=== PATIENT | male | born 1945 | race Caucasian/White ===

== ENCOUNTER 2016-05-11 11:18 | Inpatient (IN) | payer MEDICARE, OTHER ==
[~2016-05-11] VITALS: Ht 190.5 cm; Wt 64.3 kg
[2016-05-11] VITALS (11 sets, daily range): BP systolic 126–152; BP diastolic 77–101; PULSE 79–106; RESP 14–22; O2SAT 91–99
[~2016-05-11 11:18] MED LIST: ALBU1.25 INHALATION; ALBU6.7H INH; AMLO10TA3 PO; ASPI-973 PO; ATEN50TA PO; CYAN10008 PO; ERGO500050 PO; FUR20 PO; HYDR50CA PO; IPRA3AMP IH; LISI30TA5 PO; MORP-33 PO; OXYC-474 PO; POTA10CA42 PO; PRE20 PO; ZIT250 PO
--- NOTE | 2016-05-11 11:51 | ED.REPORT ---
HPI-Dyspnea / Wheezing Date of Service May 11, 2016 ED Provider: Demetrio Sales MD 70 year old male with a history of CHF, COPD, and asthma [facility] his due to 4-5 days of acute on chronic shortness of breath. Symptoms were treated with albuterol treatments at home with no relief. Associated symptoms include cough, and chest pain that he speculates is secondary to coughing. Patient denies history of CO, diabetes, and cancer. states that the patient has not taken his morning medications, with the exception of prednisone. Nursing Notes Stated Complaint: SOB Chief Complaint: Respiratory Distress Nursing Notes Reviewed: Yes Allergies: Coded Allergies: No Known Allergies (Verified Allergy, Unknown, 08/04/15) Scheduled Amlodipine (Amlodipine) 10 Mg Tablet 10 MG PO DAILY Aspirin (Aspirin) 81 Mg Tablet 81 MG PO DAILY Atenolol (Atenolol) 50 Mg Tablet 50 MG PO DAILY Azithromycin (Zithromax) 250 Mg Tablet 250 MG PO DAILY Cyanocobalamin (Vitamin B-12) (Vitamin B-12) 1,000 Mcg Tablet 1,000 MCG PO ONCE Ergocalciferol (Vitamin D2) (Drisdol) 50,000 Unit Capsule 50,000 UNIT PO Q7D Furosemide (Furosemide) 20 Mg Tab 20 MG PO DAILY Ipratropium/Albuterol Sulfate (Iprat-Albut 0.5-3(2.5) mg/3 mL Inhalant Soln) 3 Ml Ampul.neb 3 ML IH Q6 Lisinopril (Lisinopril) 30 Mg Tablet 30 MG PO DAILY Potassium Chloride (Potassium Chloride) 10 Meq Capsule.er 10 MEQ PO DAILY TAKE WITH FOOD Prednisone (PredniSONE) 20 Mg Tablet 40 MG PO DAILY Scheduled PRN Albuterol Neb Soln (Albuterol Neb Soln) 1.25 Mg/3 Ml Vial.neb 1.25 MG INHALATION Q4H PRN PRN For Shortness of Breath Albuterol Sulfate (Proventil HFA Inhaler) 6.7 Gm Hfa.aer.ad 2 PUFF INH Q4 PRN PRN For Shortness of Breath Hydroxyzine Pamoate (Vistaril) 50 Mg Capsule 50 MG PO TID PRN PRN For Pain Ipratropium/Albuterol Sulfate (Iprat-Albut 0.5-3(2.5) mg/3 mL Inhalant Soln) 3 Ml Ampul.neb 3 ML IH QID PRN PRN For Shortness of Breath Morphine Sulfate ER (Morphine Sulfate ER) 30 Mg Tablet 30 MG PO TID PRN PRN For Pain Oxycodone (Roxicodone) 5 Mg Tablet 10 MG PO QID PRN PRN For Pain General Time Seen by MD: 11:50 Chief Complaint Shortness of breath Hx Obtained From: Patient Arrived By: Ambulance Sudden in Onset?: No Onset Occurred: 5 days ago Symptom Duration: Since onset Location: : Substernal Quality: Painful Severity: Current: Mild Severity: Maximum: Mild Associated with: Reports: Chest pain, Cough Pertinent Negative: Pt denies other symptoms Context Related History: Reports: COPD, Congestive heart failure Asthma History: Asthma diagnosed, Home albuterol neb Recent Healthcare: Recent doctor visit Similar Sx Previous: Yes Past Medical History Past Medical History Notes: Primary care at [facility] Past Medical History Chronic Back Pain w/DJD Anxiety Denies CO Reports: Asthma, COPD, Congestive heart failure, Hypertension, Denies: Cancer, Diabetes mellitus Past Surgical History Reports: Tonsillectomy Smoking History Current Every Day Smoker Social History Alcohol Use: Denies alcohol use Drug Use: Denies drug use Other Social History: , Local resident Ambulatory Status Independent Review of Systems Constitutional: Denies: Chills, Fever Respiratory: Reports: Non-productive cough, Shortness of breath, Denies: Hemoptysis Cardiovascular: Reports: Chest pain Complete sys rev & neg: except as marked. GI: Denies: Abdominal pain, Diarrhea, Nausea, Vomiting Physical Exam Initial Vital Signs Vital Signs (First) Date Time Temp Pulse Resp B/P Pulse Ox O2 Delivery O2 Flow Rate FiO2 05/11/16 11:28 36.8 99 18 152/91 98 Room Air Initial VS: Reviewed Head / Eyes: Atraumatic, Normocephalic Abdomen / GI: Soft, Non-tender, No guarding, No rebound, No distention Extremities: Vascular intact, Neuro intact, No swelling, No tenderness Skin: Warm, Dry, No cyanosis Neurologic: Alert, Oriented, Nonfocal General/Constitutional: Awake, Alert, Well developed, Well nourished Neck: Atraumatic, Supple, No meningismus, Full range of motion, No swelling, Non-tender, No masses Respiratory / Chest: No rales, No retractions Wheezing / Retractions: Positive: Wheeze insp/exp diffuse Cardiovascular: Heart rate NL, Regular rhythm, Heart sounds NL, Peripheral circulation NL Interpretation & Diagnostics Lab Results Interpretation Result Diagram: 05/11/16 1155 05/11/16 1155 Test 05/11/16 11:55 05/11/16 12:20 White Blood Count 23.4th/mm3 (3.8-10.1) Red Blood Count 4.86mil/mm3 (4.40-5.80) Hemoglobin 13.4g/dL (13.8-17.2) Hematocrit 42.7% (41.0-50.0) Mean Corpuscular Volume 87.9fL (81-100) Mean Corpuscular Hemoglobin 27.6pg (27.0-35.0) Mean Corpuscular Hemoglobin Concent 31.4% (32.0-37.0) Red Cell Distribution Width 17.8% (12.3-15.4) Platelet Count 409bil/L (150-400) Neutrophils (%) (Auto) 88.8% (40-74) Lymphocytes (%) (Auto) 5.6% (14-46) Monocytes (%) (Auto) 5.0% (4-12) Eosinophils (%) (Auto) 0.1% (0-5) Basophils (%) (Auto) 0.1% (0-3) Sodium Level 138mEq/L (134-144) Potassium Level 4.5mEq/L (3.5-5.2) Chloride Level 98mEq/L (97-108) Carbon Dioxide Level 23mmol/L (18-29) Blood Urea Nitrogen 16mg/dL (8-27) Creatinine 0.70mg/dL (0.76-1.27) Estimat Glomerular Filtration Rate 118mL/min (>59) Glucose Level 112mg/dL (60-99) Calcium Level 8.9mg/dL (8.5-10.1) Total Bilirubin 0.4mg/dL (0.0-1.2) Aspartate Amino Transf (AST/SGOT) 12U/L (0-50) Alanine Aminotransferase (ALT/SGPT) 10U/L (0-44) Alkaline Phosphatase 77U/L (25-160) Troponin T 0.010ug/L (0.0-0.011) Pro-B-Type Natriuretic Peptide 8823pg/mL (0-376) Total Protein 6.7g/dL (6.4-8.4) Albumin 3.9g/dL (3.4-5.0) Urine Color Straw (YELLOW) Urine Appearance Hazy (CLEAR,HAZY) Urine pH 7.0 (5.0-8.0) Urine Specific [place] 1.015 (1.003-1.035) Urine Protein Negativemg/dL (NEG,TRACE) Urine Glucose (UA) Negativemg/dL (NEGATIVE) Urine Ketones Negativemg/dL (NEGATIVE) Urine Occult Blood Negative (NEGATIVE) Urine Nitrite Negative (NEGATIVE) Urine Bilirubin Negative (NEGATIVE) Urine Urobilinogen Normalmg/dL (NORMAL) Urine Leukocyte Esterase Negative (NEGATIVE) Urine RBC 0-2/hpf (0-2) Urine WBC 0-5/hpf (0-5) Urine Epithelial Cells Occasional/hpf (NONE-MOD) Urine Crystals None seen (NONE SEEN) Urine Bacteria None/hpf (NONE-FEW) Urine Hyaline Casts None/lpf (NONE) Urine Granular Casts None seen (NONE SEEN) Urine Waxy Casts None seen (NONE SEEN) Urine Red Blood Cell Casts None seen (NONE SEEN) Urine White Blood Cell Casts None seen (NONE SEEN) Urine Mucus Present (None Seen) Urine Trichomonas None seen (NONE SEEN) Urine Yeast None (NONE SEEN) Urinalysis Comment None Urine Culture Reflexed Not indicated ECG Interpretation ECG Interpretation: Sinus rhythm, rate 91 Multiform ventricular premature complexes LVH with IVCD, LAD and secondary repolarization abnormality Time: 12:06 Interpreted by: ED physician X-Ray Chest Interpretation Chest Xray Interpretation: IMPRESSION: No acute cardiopulmonary disease. Dictated by: Julian Clement M.D. on 05/11/2016 at 13:10 Approved by: Julian Clement M.D. on 05/11/2016 at 13:12 View: Portable, 1 view Interpretation / Wet Read by: Interpret - Radiologist Re-Eval/Medical Decision Med Decision/Clinical Course After nebulized treatments and Solu-Medrol IV patient still feels quite breathless. Will admit for COPD exacerbation. Source of Hx: Old records Re-Evaluation/Progress : Time of Eval: 14:12 Re-Evaluation/Progress Note: HR 100, O2 sat 92. Patient reports no change in symptoms. Discussed x-ray and lab results and need for admission. Patient is amenable to the plan. All other questions addressed. Consultation : Referral / Consult Name: Dayne Miramontes MD Consulted With: Hospitalist Call Returned at: 14:26 Massage Therapist: Agrees with eval, Agrees with plan, Accepts admit Counseled Regarding: Diagnosis, Lab results, Need for admission Discharge & Departure Impression: Primary Impression: CHF exacerbation Disposition: ADMITTED TO HOSPITAL Discharge Condition All VS Reviewed: Yes Condition: Stable [facility] Ashleigh Attestation Portions of this note were transcribed by Katia Babb. I, Dr. Sales, personally performed the history, physical exam and medical decision-making; I reviewed and confirmed the accuracy of the information in the transcribed note. Signed by: Ashleigh Meier, 05/11/2016 and 14:37 copies to: [facility] Demetrio Sales MD May 11, 2016 11:51 KATIA BABB May 11, 2016 11:53
[2016-05-11 12:04] LABS: BASOPHILS % (AUTO) 0.1 % (0-3); EOSINOPHILS % (AUTO) 0.1 % (0-5); Mean Corpuscular Hemoglobin 27.6 pg (27.0-35.0); Mean Corpuscular Volume 87.9 fL (81-100); NEUTROPHILS % (AUTO) 88.8 % (40-74); Platelet Count 409 bil/L (150-400)
[2016-05-11] MEDS ORDERED: Albuterol 2.5 mg/3 mL Inhalation Solution NEB ONE (12:20)
[2016-05-11] MEDS ORDERED: MethylprednisoLONE Sodium Succinate 62.5 mg/mL 2 mL Inj IVPUSH ONE (12:20)
[2016-05-11 12:25] LABS: TROPONIN T 0.01 ug/L (0.0-0.011)
[2016-05-11] MEDS ORDERED: Morphine ER 30 mg (MS Contin) Tablet PO ONE (13:05)
--- NOTE | 2016-05-11 13:13 | DRSVH ---
PROCEDURE: X-RAY CHEST ONE VIEW, PORTABLE ([id number]) INDICATIONS: SOB TECHNIQUE: One view of the chest was acquired. COMPARISON: [facility], CR, XR CHEST 2V AP/PA AND LAT, 02/23/2016, 7:41 AM. [facility], CR, XR CHEST 2V AP/PA AND LAT, 04/18/2016, 10:[address] [facility], CR, XR C HEST 1VW (PORTABLE), 11/22/2015, 11:26. FINDINGS: Surgical changes and devices: None. Lungs and pleura: No pleural effusions or pneumothorax. Lungs are clear. Mediastinum: Mediastinal contours appear normal. Heart size is normal. Bones and chest wall: No suspicious bony lesions. Overlying soft tissues appear unremarkable. IMPRESSION: No acute cardiopulmonary disease. Dictated by: Julian Clement M.D. on 05/11/2016 at 13:10 Approved by: Julian Clement M.D. on 05/11/2016 at 13:12
[2016-05-11 14:00] LABS: APPEARANCE,URINE HAZY (CLEAR,HAZY); COLOR,URINE STRAW (YELLOW); OCCULT BLOOD,URINE NEGATIVE (NEGATIVE); UROBILINOGEN,URINE NORMAL (NORMAL)
[2016-05-11] MEDS ORDERED: Alum-Mag Hydrox-Simeth 30 mL Suspension PO PRN (14:30)
[2016-05-11] MEDS ORDERED: Ondansetron 2 mg/mL 2 mL Inj IVPUSH PRN (14:30)
[2016-05-11] MEDS: Heparin 5,000 Unit/mL Inj SUBQ SCH ×2 (14:30→21:24)
[2016-05-11] MEDS ORDERED: Polyethylene Glycol (PEG) 17 Gm Powder PO PRN (14:30)
--- NOTE | 2016-05-11 14:45 | PCM.HPMED ---
Subjective Date of Service May 11, 2016 Primary Provider: Admitting Physician: Primary Care Physician: [facility] Attending Physician: Chief Complaint: Shortness of breath History of Present Illness: This is a 70 years old man with past medical history of COPD secondary to tobacco abuse, hypertension, chronic pain, chronic narcotic user who was sent to the hospital from the [place] [facility] for shortness of breath. Patient stated he has been short of breath for 3-4 days or so. Initially the shortness of breath would improve for a while with nebulizer treatment but as of today he continued to be severely short of breath despite multiple nebulizer treatment. And also chest pain with coughing, generalized weakness. She denied abdominal pain, fever, chills, nausea, vomiting. He presented today to [facility] clinic and was rerouted to the hospital for full evaluation. in ER chest x-ray is negative but patient was hypoxic and did not respond to multiple nebulizer treatments and IV steroids. His leukocytosis is 23,000 but patient has been on and off prednisone chronically. He is a current smoker despite his COPD. Review of Systems: Review of systems is pertinent for shortness of breath as described in history of present illness otherwise a comprehensive review by 12 points is negative Allergies Coded Allergies: No Known Allergies (Verified Allergy, Unknown, 08/04/15) Home Medications Scheduled Amlodipine (Amlodipine) 10 Mg Tablet 10 MG PO DAILY Aspirin (Aspirin) 81 Mg Tablet 81 MG PO DAILY Atenolol (Atenolol) 50 Mg Tablet 50 MG PO DAILY Azithromycin (Zithromax) 250 Mg Tablet 250 MG PO DAILY Cyanocobalamin (Vitamin B-12) (Vitamin B-12) 1,000 Mcg Tablet 1,000 MCG PO ONCE Ergocalciferol (Vitamin D2) (Drisdol) 50,000 Unit Capsule 50,000 UNIT PO Q7D Furosemide (Furosemide) 20 Mg Tab 20 MG PO DAILY Ipratropium/Albuterol Sulfate (Iprat-Albut 0.5-3(2.5) mg/3 mL Inhalant Soln) 3 Ml Ampul.neb 3 ML IH Q6 Lisinopril (Lisinopril) 30 Mg Tablet 30 MG PO DAILY Potassium Chloride (Potassium Chloride) 10 Meq Capsule.er 10 MEQ PO DAILY TAKE WITH FOOD Prednisone (PredniSONE) 20 Mg Tablet 40 MG PO DAILY Scheduled PRN Albuterol Neb Soln (Albuterol Neb Soln) 1.25 Mg/3 Ml Vial.neb 1.25 MG INHALATION Q4H PRN PRN For Shortness of Breath Albuterol Sulfate (Proventil HFA Inhaler) 6.7 Gm Hfa.aer.ad 2 PUFF INH Q4 PRN PRN For Shortness of Breath Hydroxyzine Pamoate (Vistaril) 50 Mg Capsule 50 MG PO TID PRN PRN For Pain Ipratropium/Albuterol Sulfate (Iprat-Albut 0.5-3(2.5) mg/3 mL Inhalant Soln) 3 Ml Ampul.neb 3 ML IH QID PRN PRN For Shortness of Breath Morphine Sulfate ER (Morphine Sulfate ER) 30 Mg Tablet 30 MG PO TID PRN PRN For Pain Oxycodone (Roxicodone) 5 Mg Tablet 10 MG PO QID PRN PRN For Pain PMH Chronic Back Pain w/DJD, Anxiety Reports: Asthma, COPD, Congestive heart failure, Hypertension, Surgical History Tonsillectomy Family History Family history reviewed and is noncontributory to the present illness Social History Hx Alcohol Use: No Hx Substance Use: No Smoking Status: Current Every Day Smoker Living Arrangement: with Family Exam Vital Signs Vital Sign - Last Date Time Temp Pulse Resp B/P Pulse Ox O2 Delivery O2 Flow Rate FiO2 05/11/16 13:50 106 22 142/94 91 Room Air 05/11/16 11:28 36.8 Exam Gen/Constitutional : Ill appearing elderly male, and stretcher comfortably, no acute distress, on oxygen via nasal cannula, able to speak in full sentences HEENT : Atraumatic, Normocephalic, sclerae is anicteric Neck: Supple , trachea is midline Full range of motion, No swelling, Non-tender , No masses Chest: Normal respiratory effort. No rales, No retractions Lungs : Decreased air entry bilaterally. Bilateral expiratory wheeze. Some fine crackles Cardiovascular: S1S2, , Regular rhythm, Heart sounds NL, Peripheral circulation NL Abdomen / GI: Soft, Non-tender, No guarding, No rebound, No distention Extremities: Vascular intact, Neuro intact, No swelling, No tenderness Skin: Warm, Dry, No cyanosis, no calf tenderness. Neurologic: Alert, Oriented, Nonfocal Lab and Diagnostics Result Diagram: 05/11/16 1155 05/11/16 1155 X-Rays, CTs and MRIs Chest X-ray personally reviewed;; No acute pulmonary finding Assessment & Plan 1. COPD exacerbation 2. h/o COPD/Asthma 3. Leukocytosis Chronic medical problems Asthma, COPD, Congestive heart failure, Hypertension, Admit inpatient. Telemetry monitoring Oxygen supplement 2 L nasal cannula to keep oxygen saturation around 92-95. Bronchodilators : DuoNeb nebulizer every 4 hours. Start Advair 50/250 g inhaler twice a day IV steroids : Methylprednisolone 40 mg IV every 8 hours. Patient has a leukocytosis of 23,000. No clinical evidence of infection and no need for antibiotics at this time. He has been on steroid over the last 3 days. Elevated BNP noted. Chest x-ray is not consistent with CHF exacerbation of pulmonary edema. We will obtain a 2-D echocardiogram and a repeat BNP in a.m. Medications reviewed and reconciled. ( see orders) . Morphine sulfate for pain Subcutaneous heparin for DVT prophylaxis. Smoking cessation counseling , nicotine patch offered for smoking urge Short hospital stay between 2-3 is anticipated and recovery is expected Pain Evaluation: Adequate Pain Control VTE Prophylaxis: Sub-Q Heparin (Unfractionated) Resuscitation Status: CPR: Attempt Resuscitation Time spent 75 minutes Dayne Miramontes MD May 11, 2016 14:45
[2016-05-11] MEDS ORDERED: Albuterol-Ipratropium 3 mL Inhalation Solution NEB ONE (15:05)
[2016-05-11] MEDS: Fluticasone-Salmererol 250-50 Inhaler INHALATION SCH (16:00)
[2016-05-11] MEDS ORDERED: CHOL100043 PO (16:21)
[2016-05-11] MEDS ORDERED: FURO40TA4 PO (16:23)
[2016-05-11] MEDS: MethylprednisoLONE Sodium Succinate 40 mg/mL Inj IVPUSH SCH (16:30)
[2016-05-11] MEDS ORDERED: PRE10 PO (16:43)
[2016-05-11] MEDS ORDERED: IPRA3AMP IH (16:43)
[2016-05-11] MEDS ORDERED: LORA0.5T PO (16:44)
[2016-05-11] MEDS ORDERED: Morphine ER 30 mg (MS Contin) Tablet PO SCH (20:30)
[2016-05-11] MEDS: Albuterol-Ipratropium 3 mL Inhalation Solution NEB SCH ×2 (20:41→20:42)
[2016-05-11] MEDS: LORazepam 0.5 mg Tablet PO PRN (21:24)
[2016-05-12] VITALS (13 sets, daily range): BP systolic 99–141; BP diastolic 64–92; PULSE 63–87; RESP 18–22; O2SAT 92–97
[2016-05-12] MEDS: Albuterol-Ipratropium 3 mL Inhalation Solution NEB SCH ×7 (00:30→23:46)
[2016-05-12] MEDS: MethylprednisoLONE Sodium Succinate 40 mg/mL Inj IVPUSH SCH ×3 (01:20→17:20)
[2016-05-12] MEDS: Morphine ER 30 mg (MS Contin) Tablet PO SCH ×3 (06:10→21:30)
[2016-05-12 06:39] LABS: BASOPHILS % (AUTO) 0.1 % (0-3); EOSINOPHILS % (AUTO) 0 % (0-5); MONOCYTES % (AUTO) 4.6 % (4-12); Mean Corpuscular Hemoglobin 27.7 pg (27.0-35.0); Mean Corpuscular Volume 87.1 fL (81-100); Platelet Count 441 bil/L (150-400)
[2016-05-12] MEDS: Fluticasone-Salmererol 250-50 Inhaler INHALATION SCH ×2 (08:56→21:23)
[2016-05-12] MEDS: Heparin 5,000 Unit/mL Inj SUBQ SCH ×2 (08:56→21:24)
--- NOTE | 2016-05-12 10:00 | DRSVH ---
Study location field not populated with appropriate location Echocardiogram Report Name: LUCAS SMART GStudy Date: 05/12/2016 Height: 75 in Hospital Weight: 146 lb Gender: Male BSA: 1.9 m2 : 1945 Age: 70 yrs BP: 124/77 mmHg Reason For Study: SOB Ordering Physician: HOSPITALIST [facility] Performed By: Lauren Erickson Interpretation Summary The left ventricle is severely dilated. Left ventricular systolic function is severely reduced. The ejection fraction is estimated to be 20-25%. The anteroseptal wall appears to be more preserved. The E/E' ratio is severely increased, suggesting possible increased filling pressures. The right ventricle is mildly dilated. Right ventricular systolic function is borderline reduced. The right ventricular systolic pressure is estimated at 67 mmHg assuming a right atrial pressure of 15 mm Hg. The left atrium is severely dilated. The right atrium is moderately dilated. There is moderate to severe mitral regurgitation. There is mild to moderate tricuspid regurgitation. There is no other significant valvular heart disease. The aortic root is normal size. Procedure: A two-dimensional transthoracic echocardiogram with color flow and Doppler was performed. There is no prior echocardiogram noted for this patient. The study quality was technically adequate. The patient was in normal sinus rhythm during the exam. Left Ventricle: The left ventricle is severely dilated. Left ventricular wall thickness is normal. Left ventricular systolic function is severely reduced. The ejection fraction is estimated to be 20-25%. There is severe global hypokinesis of the left ventricle. The anteroseptal wall appears to be more preserved. The E/E' ratio is severely increased, suggesting possible increased filling pressures. Right Ventricle: The right ventricle is mildly dilated. Right ventricular systolic function is borderline reduced. Atria: The left atrium is severely dilated. The right atrium is moderately dilated. The interatrial septum is intact with no evidence for an atrial septal defect. Mitral Valve: The mitral valve leaflets appear borderline thickened, but open well. There is mild mitral annular calcification. There is moderate to severe mitral regurgitation. Aortic Valve: The aortic valve is grossly normal. The aortic valve opens well. The aortic valve is slightly calcified. No aortic regurgitation is present. Tricuspid Valve: The tricuspid valve leaflets are thin and pliable. There is mild to moderate tricuspid regurgitation. The right ventricular systolic pressure is estimated at 67 mmHg assuming a right atrial pressure of 15 mm Hg. Pulmonic Valve: The pulmonic valve is not well seen, but is grossly normal. There is no pulmonic valvular regurgitation. There is no other significant valvular heart disease. Great Vessels: The aortic root is normal size. The ascending aorta is normal in size. The aortic arch is normal in size. The pulmonary artery is not well visualized, but is probably normal size. The IVC is dilated (diameter is greater than 2.1 cm) and it collapses less than 50% with a sniff. This suggests a high right atrial pressure of 15 mm Hg. Pericardium/ Pleura There is no pericardial effusion. There is no pleural effusion. MMode/2D Measurements & Calculations LVIDd: 7.4 cm LA dimension: 5.1 cm RA long axis: 5.7 cm Ao root diam LVIDs: 6.5 cm FS: 11.4 % LA A2 area: 36.7 cm RA area: 22.7 cm asc Aorta Diam IVSd: 0.84 cm LA A4 area: 37.3 cm RA vol: 75.9 ml LVPWd: 0.67 cmLA length (vol) RA : 39.5 ml/m Ao Arch Diam (Prox RVDd major: 9.0 cm Trans): 2.6 cm LA vol: 172.7 ml LA vol index IVC diam: 2.4 cm EDV(MOD-sp2) LV chávez. diameter/BSA LV sys. diameter/BSA RVD1 (basal) : 288.9 ml (cm/m^2): 3.8 (cm/m^2): 3.4 : 4.3 cm RVD2 (mid) : 4.5 cm Doppler Measurements & Calculations Ao V2 max MV E max gilbert MV E/A: 1.8 TR max gilbert : 124.1 cm/sec : 123.2 cm/sec Med Peak E' Gilbert : 359.3 cm/sec Ao max PG MV A max gilbert TR max PG : 6.2 mmHg : 68.0 cm/sec E/E' med: 33.5 : 51.6 mmHg Ao mean PG MV P1/2t: 27.3 msec Lat Peak E' Gilbert PA V2 max : 3.5 mmHg : 73.2 cm/sec E/E' lat: 16.7 PA mean PG E/e' average: 25.1 MV A dur: 0.12 sec PA Accel Time : 0.10 sec MV dec time MV P1/2t max gilbert Ao V2 mean PA V2 mean : 0.10 sec : 89.8 cm/sec : 53.6 cm/sec MVA(P1/2t): 8.1 cm2 Ao V2 VTI: 24.2 cm Reading Physician:QUINTIN
[2016-05-12] MEDS: Ketorolac 15 mg/mL Inj IVPUSH PRN (12:11)
[2016-05-12] MEDS: LORazepam 0.5 mg Tablet PO PRN (12:23)
--- NOTE | 2016-05-12 14:14 | PCM.PNMED ---
Subjective Date of Service May 12, 2016 Subjective Patient is complaining of pain and even though he is on chronic oral pain medications he states that the patient is uncomfortable and he would like some IV morphine Hermilo 8 his pain. Otherwise he feels better and is breathing better. He has no new complaints. He has no fever, no chills, no sweats and no productive cough. Exam Vital Signs Vital Sign - Last Date Time Temp Pulse Resp B/P Pulse Ox O2 Delivery O2 Flow Rate FiO2 05/12/16 12:30 77 20 94 Room Air 05/12/16 09:24 36.5 123/83 05/11/16 20:42 2 Intake and Output 05/11/16 05/11/16 05/12/16 Cumulative From/Thru 15:00 23:00 07:00 05/11/16 11:28 - 05/12/16 06:16 Intake Total 236 ml 300 ml 536 ml Output Total 0 ml 0 ml Balance 236 ml 300 ml 536 ml Intake Oral 236 ml 300 ml 536 ml Output Urine Total 0 ml 0 ml # Voids 3 3 # Bowel Movements 0 1 1 Exam General: Patient is laying supine in bed with head elevated approximately 30-45 . He is in no distress. He is comfortable. HEENT: Head is atraumatic and normocephalic. Eyes: Pupils are equally round and reactive to light and accommodation. Extraocular muscles are intact. Sclera are white, anicteric. Subconjunctival mucosa is pink. Ears and nose are unremarkable. Oropharynx: There is no mucosal lesions, there is no thrush, there is no pharyngitis. Neck: Is supple, there are no nodes, or masses or tenderness. Chest: Is significant for decreased breath sounds bilaterally and diffuse expiratory wheezing especially with coughing. Heart: Rate, rhythm is regular. There is no murmur, rub or gallop. Abdomen: Good bowel sounds are present. Abdomen is soft, nontender, no organomegaly or masses were appreciated. Extremities: Are symmetrical and well perfused. There is no edema, there is no cellulitis, no rash. Neurologic: There are no focal neurological deficits. Cranial nerves II through XII are intact. There are no sensory or motor deficits. Psychiatric: Patients mood is calm and shows no sign of agitation. Genital: Deferred Rectal: Deferred Lab and Diagnostics Result Diagram: 05/12/16 0608 05/12/16 0608 X-Rays, CTs and MRIs PROCEDURE: X-RAY CHEST ONE VIEW, PORTABLE ([id number]) INDICATIONS: SOB TECHNIQUE: One view of the chest was acquired. COMPARISON: [facility], CR, XR CHEST 2V AP/PA AND LAT, 02/23/2016 , 7:41 AM. [facility], CR, XR CHEST 2V AP/PA AND LAT, 04/18/2016, 10:41 AM. [facility], CR, XR CHEST 1VW (PORTABLE), 11/22/2015, 11: 26. FINDINGS: Surgical changes and devices: None. Lungs and pleura: No pleural effusions or pneumothorax. Lungs are clear. Mediastinum: Mediastinal contours appear normal. Heart size is normal. Bones and chest wall: No suspicious bony lesions. Overlying soft tissues appear unremarkable. IMPRESSION: No acute cardiopulmonary disease. Dictated by: Julian Clement M.D. on 05/11/2016 at 13:10 Approved by: Julian Clement M.D. on 05/11/2016 at 13:12 Cardiac Echo Impressions Study location field not populated with appropriate location Echocardiogram Report Name: LUCAS SMART GStudy Date: 05/12/2016 Height: 75 in Hospital Weight: 146 lb Gender: Male BSA: 1.9 m2 : 1945 Age: 70 yrs BP: 124/77 mmHg Reason For Study: SOB Ordering Physician: HOSPITALIST [facility] Performed By: Lauren Erickson Interpretation Summary The left ventricle is severely dilated. Left ventricular systolic function is severely reduced. The ejection fraction is estimated to be 20-25%. The anteroseptal wall appears to be more preserved. The E/E' ratio is severely increased, suggesting possible increased filling pressures. The right ventricle is mildly dilated. Right ventricular systolic function is borderline reduced. The right ventricular systolic pressure is estimated at 67 mmHg assuming a right atrial pressure of 15 mm Hg. The left atrium is severely dilated. The right atrium is moderately dilated. There is moderate to severe mitral regurgitation. There is mild to moderate tricuspid regurgitation. There is no other significant valvular heart disease. The aortic root is normal size. Assessment & Plan 70 year old male with a history of CHF, COPD, and asthma presents to the ER via EMS referred [place] the [place] accompanied by his due to 4-5 days of acute on chronic shortness of breath. Symptoms were treated with albuterol treatments at home with no relief. Associated symptoms include cough, and chest pain that he speculates is secondary to coughing. Patient denies history of IA, diabetes, and cancer. states that the patient has not taken his morning medications, with the exception of prednisone patient came to [facility] emergency room and was evaluated there and it was determined that he needed to be admitted to the hospital service. Patient was admitted to the hospital service for further evaluation treatment. # COPD and Asthma exacerbation - Oxygen supplement 2 L nasal cannula to keep oxygen saturation around 92-95. - Bronchodilators : DuoNeb nebulizer every 4 hours. Start Advair 50/250 g inhaler twice a day - IV steroids : Methylprednisolone 40 mg IV every 8 hours. # Acute on chronic systolic congestive heart failure - Echocardiogram shows an ejection fraction of only 20-25% - BNP is on the rise - Patient is coughing up white phlegm - We will change atenolol to metoprolol succinate 25 mg by mouth twice a day to start with - We will increase Lasix to 40 mg IV twice a day - We will check serial troponins - Continue telemetry monitoring # Leukocytosis - Etiology appears to be due to outpatient steroid use. - Off antibiotics white blood cell count appears to be in decline - We will check inflammatory markers including C-reactive protein and sedimentation rate) calcitonin in a.m. - Agree that there is no evidence of infection at this time and agree and holding antibiotics at this time. # Hypertension - Appears to be controlled at this time - Due to systolic congestive heart failure addition of an AARTI inhibitor to beta- blockade should improve blood pressure to optimize cardiac function - We will continue to monitor closely # Chronic pain - We will continue patient's home medications of OxyContin and OxyIR as previously scheduled. - Due to patient's current discomfort will add Toradol low-dose IV when necessary for breakthrough pain Smoking cessation counseling was performed by the admitting physician and I also counseled him on quitting today. Patient admits that the nicotine patch is taking the urge to smoke away. Disposition: Patient likely to be here another 4872 hours for further evaluation treatment. Pain Evaluation: Adequate Pain Control GI Prophylaxis: Proton Pump Inhibitor VTE Prophylaxis: Sub-Q Heparin (Unfractionated) Resuscitation Status: CPR: Attempt Resuscitation Ángel,Christopher E MD May 12, 2016 14:14
[2016-05-12] MEDS ORDERED: Furosemide 10 mg/mL 4 mL Inj IVPUSH SCH (14:20)
--- NOTE | 2016-05-12 16:26 | DRSVH ---
PROCEDURE: X-RAY CHEST, TWO VIEWS ([id number]) INDICATIONS: shortness of breath/possible infiltrate TECHNIQUE: 2 views of the chest were acquired. COMPARISON: Merged With [facility], CR, XR CHEST 1VW (PORTABLE), 05/11/2016, 11:39. FINDINGS: Surgical changes and devices: None. Lungs and pleura: No pleural effusions or pneumothorax. Lungs are clear. Mediastinum: Mediastinal contours are normal. Heart size is mildly enlarged. Bones and chest wall: No suspicious bony abnormalities. Soft tissues appear unremarkable. IMPRESSION: No acute airspace opacities. Dictated by: Selma Gonzalez M.D. on 05/12/2016 at 16:25 Approved by: Selma Gonzalez M.D. on 05/12/2016 at 16:25
[2016-05-12] MEDS: MeTOProlol XL 25 mg ER24 Tablet PO SCH (20:30)
[2016-05-13] VITALS (11 sets, daily range): BP systolic 105–120; BP diastolic 55–84; PULSE 62–79; RESP 16–20; O2SAT 92–97
[2016-05-13] MEDS: MethylprednisoLONE Sodium Succinate 40 mg/mL Inj IVPUSH SCH ×3 (00:52→16:23)
[2016-05-13] MEDS: Ketorolac 15 mg/mL Inj IVPUSH PRN (01:07)
[2016-05-13] MEDS: LORazepam 0.5 mg Tablet PO PRN ×2 (01:12→10:13)
[2016-05-13] MEDS: Albuterol-Ipratropium 3 mL Inhalation Solution NEB SCH ×4 (05:24→19:40)
[2016-05-13] MEDS: Morphine ER 30 mg (MS Contin) Tablet PO SCH ×3 (06:22→21:47)
[2016-05-13 06:32] LABS: BASOPHILS % (AUTO) 0.1 % (0-3); EOSINOPHILS % (AUTO) 0 % (0-5)
[2016-05-13] MEDS: Furosemide 10 mg/mL 4 mL Inj IVPUSH SCH ×2 (06:32→16:22)
[2016-05-13 06:34] LABS: MONOCYTES % (AUTO) 4.1 % (4-12); Mean Corpuscular Volume 87.5 fL (81-100); NEUTROPHILS % (AUTO) 92.6 % (40-74); Platelet Count 391 bil/L (150-400)
[2016-05-13 07:15] LABS: Magnesium 2.3 mg/dL (1.6-2.6); Phosphorus 5.6 mg/dL (2.5-4.9)
[2016-05-13] MEDS: MeTOProlol XL 25 mg ER24 Tablet PO SCH ×2 (07:32→21:46)
[2016-05-13] MEDS: Pantoprazole 40 mg ER24 Tablet PO SCH (07:32)
[2016-05-13] MEDS: Heparin 5,000 Unit/mL Inj SUBQ SCH ×2 (07:33→21:47)
[2016-05-13] MEDS: Fluticasone-Salmererol 250-50 Inhaler INHALATION SCH ×2 (07:35→21:48)
[2016-05-13 07:41] LABS: ERYTHROCYTE SEDIMENTATION RATE 5 mm/hr (0-30)
[2016-05-13 08:23] LABS: TROPONIN T < 0.010 ug/L (0.0-0.011)
--- NOTE | 2016-05-13 16:27 | DRSVH ---
PROCEDURE: US AORTA RETROPERITONEAL LIMITED INDICATIONS: AAA AND BACK PAIN TECHNIQUE: Real time scanning was performed of the aorta and iliac arteries, with image documentatio n. COMPARISON: [facility], CT, CT CHEST ABD PELVIS W CON, 10/28/2014, 16:17. FINDINGS: Aorta: Proximal aortic diameter measures 2.8 cm. Mid-aorta measures 3.0 cm. Distal aortic diameter is 3.6 cm. Iliac arteries: Right common iliac artery measures 0.9 cm. Left common iliac artery measures 0.2 cm . IMPRESSION: No change to slight increase in size of the descending distal abdominal aortic aneurysm. Dictated by: Raf Cabrera RRA Interpreted: Francie Brunson MD on 05/13/2016 at 16:26 Transcribed by: LEIF on 05/13/2016 at 16:27 Approved by: Francie Brunson MD, PhD on 05/13/2016 at 20:30
--- NOTE | 2016-05-13 19:55 | PCM.PNMED ---
Subjective Date of Service May 13, 2016 Subjective Patient is beginning to feel a little bit better. He is able to breathe better. He has no new complaints other than continued back pain and he states that he has nitroglycerin but is afraid to use it because he is worried that his abdominal aortic aneurysmal "will blow". Exam Vital Signs Vital Sign - Last Date Time Temp Pulse Resp B/P Pulse Ox O2 Delivery O2 Flow Rate FiO2 05/13/16 19:40 78 16 94 Room Air 05/13/16 18:41 36.7 111/71 05/11/16 20:42 2 Intake and Output 05/12/16 05/12/16 05/13/16 Cumulative From/Thru 15:00 23:00 07:00 05/11/16 11:28 - 05/13/16 06:27 Intake Total 1259 ml 200 ml 1995 ml Output Total 480 ml 480 ml Balance 1259 ml -280 ml 1515 ml Intake Oral 1259 ml 200 ml 1995 ml Output Urine Total 480 ml 480 ml # Voids 3 6 # Bowel Movements 0 0 1 Exam General: Patient is sitting up on the side of the bed. He is in no distress. He is comfortable. HEENT: Head is atraumatic and normocephalic. Eyes: Pupils are equally round and reactive to light and accommodation. Extraocular muscles are intact. Sclera are white, anicteric. Subconjunctival mucosa is pink. Ears and nose are unremarkable. Oropharynx: There is no mucosal lesions, there is no thrush, there is no pharyngitis. Neck: Is supple, there are no nodes, or masses or tenderness. Chest: Is significant for decreased breath sounds bilaterally. However, the breath sounds are much clearer today.. Heart: Rate, rhythm is regular. There is no murmur, rub or gallop. Abdomen: Good bowel sounds are present. Abdomen is soft, nontender, no organomegaly or masses were appreciated. Extremities: Are symmetrical and well perfused. There is no edema, there is no cellulitis, no rash. Neurologic: There are no focal neurological deficits. Cranial nerves II through XII are intact. There are no sensory or motor deficits. Psychiatric: Patients mood is calm and shows no sign of agitation. Genital: Deferred Rectal: Deferred Lab and Diagnostics Result Diagram: 05/13/1660205/13/16602 Microbiology Name: LUCAS SMART Age/Sex: 70/M Attend Dr: Dayne Miramontes MD Acct: [id number] Unit: [id number] Status: ADM IN [place] [facility] [place]9-1 Re05/11/16 Disch: Specimen: [id number] Collected: 05/13/16 Status: RES Req#: [id number] Received: 05/13/16 Source: SPUTUM EXP Sp Desc : Subm Dr: Jose Antonio Neal MD Ordered: GRAM SPT REFLEX, SPUTUM CULTURE Comments: Collected by Nurse/Unit? Y/N Y Procedure Result Verified Site Microbiology MAGGIE CULT SPUTUM GS Final 05/13/16-1305 SPT GRAM STAIN MODERATE POLYS FEW EPITHELIAL CELLS MODERATE MIXED NORMAL GRAYSON This Spec is of good Quality and acceptable for Cult X-Rays, CTs and MRIs PROCEDURE: X-RAY CHEST ONE VIEW, PORTABLE ([id number]) INDICATIONS: SOB TECHNIQUE: One view of the chest was acquired. COMPARISON: [facility], CR, XR CHEST 2V AP/PA AND LAT, 02/23/2016 , 7:41 AM. [facility], CR, XR CHEST 2V AP/PA AND LAT, 04/18/2016, 10:41 AM. [facility], CR, XR CHEST 1VW (PORTABLE), 11/22/2015, 11: 26. FINDINGS: Surgical changes and devices: None. Lungs and pleura: No pleural effusions or pneumothorax. Lungs are clear. Mediastinum: Mediastinal contours appear normal. Heart size is normal. Bones and chest wall: No suspicious bony lesions. Overlying soft tissues appear unremarkable. IMPRESSION: No acute cardiopulmonary disease. Dictated by: Julian Clement M.D. on 05/11/2016 at 13:10 Approved by: Julian Clement M.D. on 05/11/2016 at 13:12 Cardiac Echo Impressions Study location field not populated with appropriate location Echocardiogram Report Name: LUCAS SMART GStudy Date: 05/12/2016 Height: 75 in Hospital Weight: 146 lb Gender: Male BSA: 1.9 m2 : 1945 Age: 70 yrs BP: 124/77 mmHg Reason For Study: SOB Ordering Physician: HOSPITALIST [facility] Performed By: Lauren Erickson Interpretation Summary The left ventricle is severely dilated. Left ventricular systolic function is severely reduced. The ejection fraction is estimated to be 20-25%. The anteroseptal wall appears to be more preserved. The E/E' ratio is severely increased, suggesting possible increased filling pressures. The right ventricle is mildly dilated. Right ventricular systolic function is borderline reduced. The right ventricular systolic pressure is estimated at 67 mmHg assuming a right atrial pressure of 15 mm Hg. The left atrium is severely dilated. The right atrium is moderately dilated. There is moderate to severe mitral regurgitation. There is mild to moderate tricuspid regurgitation. There is no other significant valvular heart disease. The aortic root is normal size. Assessment & Plan The patient is a 70 year old male with a history of CHF, COPD, and asthma [facility] his due to 4 -5 days of acute on chronic shortness of breath. Symptoms were treated with albuterol treatments at home with no relief. Associated symptoms include cough, and chest pain that he speculates is secondary to coughing. Patient denies history of DC, diabetes, and cancer. states that the patient has not taken his morning medications, with the exception of prednisone patient came to [facility] emergency room and was evaluated there and it was determined that he needed to be admitted to the hospital service. Patient was admitted to the hospital service for further evaluation treatment. # COPD and Asthma exacerbation - We will continue Oxygen supplement 2 L nasal cannula to keep oxygen saturation around 92-95. - Bronchodilators : We will continue DuoNeb nebulizer every 4 hours. We will continue Advair 50/250 g inhaler twice a day - IV steroids : Decrease to Methylprednisolone 40 mg IV every 8 hours. We will decreased to every 12 hours and likely change to oral prednisone tomorrow. # Acute on chronic systolic congestive heart failure - Echocardiogram shows an ejection fraction of only 20-25% - BNP is on the rise - Patient is coughing up white phlegm - We will change atenolol to metoprolol succinate 25 mg by mouth twice a day to start with - We will increase Lasix to 40 mg IV twice a day - We will check serial troponins - Continue telemetry monitoring # Leukocytosis - Etiology appears to be due to steroid use. - Off antibiotics white blood cell count appears to be stable - We have checked inflammatory markers including C-reactive protein and sedimentation rate) calcitonin all of which are normal. - Agree that there is no evidence of infection at this time and agree and holding antibiotics at this time. # Hypertension - Appears to be controlled at this time - Due to systolic congestive heart failure addition of an AARTI inhibitor to beta- blockade should improve blood pressure to optimize cardiac function - We will continue to monitor closely # Chronic back pain - We will continue patient's home medications of OxyContin and OxyIR as previously scheduled. - Due to patient's current discomfort will add Toradol low-dose IV when necessary for breakthrough pain - Check abdominal ultrasound for evaluation of abdominal aortic aneurysm which may be contributing to his back pain. Smoking cessation counseling was performed by the admitting physician and I also counseled him on quitting. Patient admits that the nicotine patch is taking the urge to smoke away. Disposition: Patient likely to be here another 24 hours for further evaluation and treatment. Pain Evaluation: Adequate Pain Control GI Prophylaxis: Proton Pump Inhibitor VTE Prophylaxis: Sub-Q Heparin (Unfractionated) VTE Mechanical Devices: Intermittant Pneumatic CD Resuscitation Status: CPR: Attempt Resuscitation Jose Antonio Neal MD May 13, 2016 19:55
[2016-05-14] VITALS (13 sets, daily range): BP systolic 100–113; BP diastolic 59–75; PULSE 64–76; RESP 16–18; O2SAT 91–97
[2016-05-14] MEDS: LORazepam 0.5 mg Tablet PO PRN ×2 (00:27→21:18)
[2016-05-14] MEDS: MethylprednisoLONE Sodium Succinate 40 mg/mL Inj IVPUSH SCH ×2 (00:27→07:52)
[2016-05-14] MEDS: Albuterol-Ipratropium 3 mL Inhalation Solution NEB SCH ×6 (00:30→20:44)
[2016-05-14 06:23] LABS: BASOPHILS % (AUTO) 0 % (0-3); EOSINOPHILS % (AUTO) 0 % (0-5); Mean Corpuscular Hemoglobin 27.5 pg (27.0-35.0); Mean Corpuscular Volume 87.4 fL (81-100); NEUTROPHILS % (AUTO) 92.3 % (40-74); Platelet Count 379 bil/L (150-400)
[2016-05-14] MEDS: Furosemide 10 mg/mL 4 mL Inj IVPUSH SCH ×2 (06:45→17:37)
[2016-05-14] MEDS: Morphine ER 30 mg (MS Contin) Tablet PO SCH ×3 (06:46→21:18)
[2016-05-14] MEDS: MeTOProlol XL 25 mg ER24 Tablet PO SCH ×2 (07:51→21:18)
[2016-05-14] MEDS: Pantoprazole 40 mg ER24 Tablet PO SCH (07:51)
[2016-05-14] MEDS: Heparin 5,000 Unit/mL Inj SUBQ SCH ×2 (07:52→21:18)
[2016-05-14] MEDS: Fluticasone-Salmererol 250-50 Inhaler INHALATION SCH ×2 (07:52→21:24)
[2016-05-14] MEDS: predniSONE 20 mg Tablet PO SCH (10:00)
--- NOTE | 2016-05-14 23:21 | PCM.PNMED ---
Subjective Date of Service May 14, 2016 Subjective Patient is beginning to feel a little bit better. He is breathing much better. He has less cough less shortness of breath. He has no fever, no chills, no sweats. Exam Vital Signs Vital Sign - Last Date Time Temp Pulse Resp B/P Pulse Ox O2 Delivery O2 Flow Rate FiO2 05/14/16 21:21 76 05/14/16 20:56 36.5 16 104/59 95 Room Air 05/11/16 20:42 2 Intake and Output 05/13/16 05/13/16 05/14/16 Cumulative From/Thru 15:00 23:00 07:00 05/11/16 11:28 - 05/14/16 05:03 Intake Total 850 ml 2845 ml Output Total 1025 ml 1505 ml Balance -175 ml 1340 ml Intake Oral 850 ml 2845 ml Output Urine Total 1025 ml 1505 ml # Voids 6 # Bowel Movements 1 2 Exam General: Patient is in no apparent distress. HEENT: Head is atraumatic and normocephalic. Eyes: Pupils are equally round and reactive to light and accommodation. Extraocular muscles are intact. Sclera are white, anicteric. Subconjunctival mucosa is pink. Ears and nose are unremarkable. Oropharynx: There is no mucosal lesions, there is no thrush, there is no pharyngitis. Neck: Is supple, there are no nodes, or masses or tenderness. Chest: Is clearer to auscultation and percussion. There are decreased breath sounds overall. Patient has significant kyphosis. There are no rhonchi, wheezes or rubs. Heart: Rate, rhythm is regular. There is no murmur, rub or gallop. Abdomen: Good bowel sounds are present. Abdomen is soft, nontender, no organomegaly or masses were appreciated. Extremities: Are symmetrical and well perfused. There is no edema, there is no cellulitis, no rash. Neurologic: There are no focal neurological deficits. Cranial nerves II through XII are intact. There are no sensory or motor deficits. Psychiatric: Patients mood is calm and he shows no sign of agitation. Genital: Deferred Rectal: Deferred Lab and Diagnostics Result Diagram: 05/14/16 0535 05/14/16 0535 Microbiology Name: LUCAS SMART Age/Sex: 70/M Attend Dr: Dayne Miramontes MD Acct: [id number] Unit: [id number] Status: ADM IN Location: [facility] [place] 3009-1 Re05/11/16 Disch: Specimen: [id number] Collected: 05/13/16 Status: RES Req#: [id number] Received: 05/13/16 Source: SPUTUM EXP Sp Desc : Subm Dr: Jose Antonio Neal MD Ordered: GRAM SPT REFLEX, SPUTUM CULTURE Comments: Collected by Nurse/Unit? Y/N Y Procedure Result Verified Site Microbiology MAGGIE CULT SPUTUM GS Final 05/13/16-1305 SPT GRAM STAIN MODERATE POLYS FEW EPITHELIAL CELLS MODERATE MIXED NORMAL GRAYSON This Spec is of good Quality and acceptable for Cult X-Rays, CTs and MRIs PROCEDURE: X-RAY CHEST ONE VIEW, PORTABLE ([id number]) INDICATIONS: SOB TECHNIQUE: One view of the chest was acquired. COMPARISON: [facility], CR, XR CHEST 2V AP/PA AND LAT, 02/23/2016 , 7:41 AM. [facility], CR, XR CHEST 2V AP/PA AND LAT, 04/18/2016, 10:41 AM. [facility], CR, XR CHEST 1VW (PORTABLE), 11/22/2015, 11: 26. FINDINGS: Surgical changes and devices: None. Lungs and pleura: No pleural effusions or pneumothorax. Lungs are clear. Mediastinum: Mediastinal contours appear normal. Heart size is normal. Bones and chest wall: No suspicious bony lesions. Overlying soft tissues appear unremarkable. IMPRESSION: No acute cardiopulmonary disease. Dictated by: Julian Clement M.D. on 05/11/2016 at 13:10 Approved by: Julian Clement M.D. on 05/11/2016 at 13:12 PROCEDURE: US AORTA RETROPERITONEAL LIMITED INDICATIONS: AAA AND BACK PAIN TECHNIQUE: Real time scanning was performed of the aorta and iliac arteries, with image documentation. COMPARISON: [facility], CT, CT CHEST ABD PELVIS W CON, 10/28/2014, 16:17. FINDINGS: Aorta: Proximal aortic diameter measures 2.8 cm. Mid-aorta measures 3.0 cm. Distal aortic diameter is 3.6 cm. Iliac arteries: Right common iliac artery measures 0.9 cm. Left common iliac artery measures 0.2 cm. IMPRESSION: No change to slight increase in size of the descending distal abdominal aortic aneurysm. Dictated by: Raf Cabrera [facility] Interpreted: Francie Brunson MD on 05/13/2016 at 16:26 Transcribed by: LEIF on 05/13/2016 at 16:27 Approved by: Francie Brunson MD, PhD on 05/13/2016 at 20:30 Cardiac Echo Impressions Study location field not populated with appropriate location Echocardiogram Report Name: LUCAS SMART GStudy Date: 05/12/2016 Height: 75 in Hospital Weight: 146 lb Gender: Male BSA: 1.9 m2 : 1945 Age: 70 yrs BP: 124/77 mmHg Reason For Study: SOB Ordering Physician: HOSPITALIST [facility] Performed By: Lauren Erickson Interpretation Summary The left ventricle is severely dilated. Left ventricular systolic function is severely reduced. The ejection fraction is estimated to be 20-25%. The anteroseptal wall appears to be more preserved. The E/E' ratio is severely increased, suggesting possible increased filling pressures. The right ventricle is mildly dilated. Right ventricular systolic function is borderline reduced. The right ventricular systolic pressure is estimated at 67 mmHg assuming a right atrial pressure of 15 mm Hg. The left atrium is severely dilated. The right atrium is moderately dilated. There is moderate to severe mitral regurgitation. There is mild to moderate tricuspid regurgitation. There is no other significant valvular heart disease. The aortic root is normal size. Assessment & Plan The patient is a 70 year old male with a history of CHF, COPD, and asthma [facility] his due to 4 -5 days of acute on chronic shortness of breath. Symptoms were treated with albuterol treatments at home with no relief. Associated symptoms include cough, and chest pain that he speculates is secondary to coughing. Patient denies history of [place], diabetes, and cancer. states that the patient has not taken his morning medications, with the exception of prednisone patient came to [facility] emergency room and was evaluated there and it was determined that he needed to be admitted to the hospital service. Patient was admitted to the hospital service for further evaluation treatment. # COPD and Asthma exacerbation - We will continue Oxygen supplement 2 L nasal cannula to keep oxygen saturation around 92-95. - Bronchodilators : We will continue DuoNeb nebulizer every 4 hours. We will continue Advair 50/250 g inhaler twice a day - IV steroids : Decrease to Methylprednisolone 40 mg IV every 8 hours. We have decreased to every 12 hours and then change to oral prednisone 20 mg by mouth daily. # Acute on chronic systolic congestive heart failure - Echocardiogram shows an ejection fraction of only 20-25% - BNP is on the rise - Patient is coughing up white phlegm - We will change atenolol to metoprolol succinate 25 mg by mouth twice a day to start with - We will increase Lasix to 40 mg IV twice a day - We will check serial troponins - Continue telemetry monitoring # Leukocytosis - Etiology appears to be due to steroid use. - Off antibiotics white blood cell count appears to be stable - We have checked inflammatory markers including C-reactive protein and sedimentation rate) calcitonin all of which are normal. - Agree that there is no evidence of infection at this time and agree and holding antibiotics at this time. # Hypertension - Appears to be controlled at this time - Due to systolic congestive heart failure addition of an AARTI inhibitor to beta- blockade should improve blood pressure to optimize cardiac function - We will continue to monitor closely # Chronic back pain - We will continue patient's home medications of OxyContin and OxyIR as previously scheduled. - Due to patient's current discomfort will add Toradol low-dose IV when necessary for breakthrough pain - We checked an abdominal ultrasound for evaluation of abdominal aortic aneurysm which may be contributing to his back pain. The aneurysm's diameter was up to 3.6 cm distally. Smoking cessation counseling was performed by the admitting physician and I also counseled him on quitting. Patient admits that the nicotine patch is taking the urge to smoke away. Disposition: Patient likely to be here another 24 hours for further evaluation and treatment. Dr. Miller will be here to follow in a.m. Pain Evaluation: Adequate Pain Control GI Prophylaxis: Proton Pump Inhibitor VTE Prophylaxis: Sub-Q Heparin (Unfractionated) VTE Mechanical Devices: Intermittant Pneumatic CD Resuscitation Status: CPR: Attempt Resuscitation OcotilloJose Antonio MD May 14, 2016 23:21
[2016-05-15] VITALS (11 sets, daily range): BP systolic 89–108; BP diastolic 53–67; PULSE 60–70; RESP 18–22; O2SAT 92–97
[2016-05-15 06:36] LABS: BASOPHILS % (AUTO) 0 % (0-3); EOSINOPHILS % (AUTO) 0.2 % (0-5); Mean Corpuscular Hemoglobin 27.5 pg (27.0-35.0); Mean Corpuscular Volume 87.3 fL (81-100); NEUTROPHILS % (AUTO) 84.6 % (40-74); Platelet Count 388 bil/L (150-400)
[2016-05-15] MEDS: Albuterol-Ipratropium 3 mL Inhalation Solution NEB SCH ×4 (07:38→20:54)
[2016-05-15] MEDS: Furosemide 10 mg/mL 4 mL Inj IVPUSH SCH ×2 (07:52→17:12)
[2016-05-15] MEDS: Pantoprazole 40 mg ER24 Tablet PO SCH (07:53)
[2016-05-15] MEDS: MeTOProlol XL 25 mg ER24 Tablet PO SCH ×2 (07:54→20:11)
[2016-05-15] MEDS: predniSONE 20 mg Tablet PO SCH (07:54)
[2016-05-15] MEDS: Morphine ER 30 mg (MS Contin) Tablet PO SCH ×3 (07:54→22:12)
[2016-05-15] MEDS: Heparin 5,000 Unit/mL Inj SUBQ SCH ×2 (07:58→20:04)
[2016-05-15] MEDS: Fluticasone-Salmererol 250-50 Inhaler INHALATION SCH ×2 (08:00→20:04)
--- NOTE | 2016-05-15 09:04 | PCM.PNMED ---
Subjective Date of Service May 15, 2016 Subjective - Pt seen and examined this morning. - He is c/o mild shortness of breath. States that this is better than yesterday. Also complaints of fatigue and generalized weakness. Exam Vital Signs Vital Sign - Last Date Time Temp Pulse Resp B/P Pulse Ox O2 Delivery O2 Flow Rate FiO2 05/15/16 07:38 60 18 95 Room Air 05/15/16 06:42 36.6 100/53 05/11/16 20:42 2 Intake and Output 05/14/16 05/14/16 05/15/16 Cumulative From/Thru 14:59 22:59 06:59 05/11/16 11:28 - 05/15/16 06:42 Intake Total 300 ml 1240 ml 4385 ml Output Total 1505 ml Balance 300 ml 1240 ml 2880 ml Intake Oral 300 ml 1240 ml 4385 ml Output Urine Total 1505 ml # Voids 1 4 11 # Bowel Movements 0 0 2 Exam General: Patient is in no apparent distress. HEENT: Head is atraumatic and normocephalic. Eyes: Pupils are equally round and reactive to light and accommodation. Extraocular muscles are intact. Sclera are white, anicteric. Subconjunctival mucosa is pink. Ears and nose are unremarkable. Oropharynx: There is no mucosal lesions, there is no thrush, there is no pharyngitis. Neck: Is supple, there are no nodes, or masses or tenderness. Chest: There are decreased breath sounds overall. Patient has significant kyphosis. There are no rhonchi, wheezes or rubs. Heart: Rate, rhythm is regular. There is no murmur, rub or gallop. Abdomen: Good bowel sounds are present. Abdomen is soft, nontender, no organomegaly or masses were appreciated. Extremities: Are symmetrical and well perfused. There is no edema, there is no cellulitis, no rash. Neurologic: There are no focal neurological deficits. Cranial nerves II through XII are intact. There are no sensory or motor deficits. Psychiatric: Patients mood is calm and he shows no sign of agitation. IVs and Medications Medications Reviewed: Medications were reviewed in detail Lab and Diagnostics Result Diagram: 05/15/16 0558 05/15/16 0558 Microbiology Name: LUCAS SMART Age/Sex: 70/M Attend Dr: Dayne Miramontes MD Acct: [id number] Unit: [id number] Status: ADM IN Location: [facility] [place] 3009-1 Re05/11/16 Disch: Specimen: [id number] Collected: 05/13/16 Status: RES Req#: [id number] Received: 05/13/16 Source: SPUTUM EXP Sp Desc : Subm Dr: Jose Antonio Neal MD Ordered: GRAM SPT REFLEX, SPUTUM CULTURE Comments: Collected by Nurse/Unit? Y/N Y Procedure Result Verified Site Microbiology MAGGIE CULT SPUTUM GS Final 05/13/16-1305 SPT GRAM STAIN MODERATE POLYS FEW EPITHELIAL CELLS MODERATE MIXED NORMAL GRAYSON This Spec is of good Quality and acceptable for Cult X-Rays, CTs and MRIs PROCEDURE: X-RAY CHEST ONE VIEW, PORTABLE ([id number]) INDICATIONS: SOB TECHNIQUE: One view of the chest was acquired. COMPARISON: [facility], CR, XR CHEST 2V AP/PA AND LAT, 02/23/2016 , 7:41 AM. [facility], CR, XR CHEST 2V AP/PA AND LAT, 04/18/2016, 10:41 AM. [facility], CR, XR CHEST 1VW (PORTABLE), 11/22/2015, 11: 26. FINDINGS: Surgical changes and devices: None. Lungs and pleura: No pleural effusions or pneumothorax. Lungs are clear. Mediastinum: Mediastinal contours appear normal. Heart size is normal. Bones and chest wall: No suspicious bony lesions. Overlying soft tissues appear unremarkable. IMPRESSION: No acute cardiopulmonary disease. Dictated by: Julian Clement M.D. on 05/11/2016 at 13:10 Approved by: Julian Clement M.D. on 05/11/2016 at 13:12 PROCEDURE: US AORTA RETROPERITONEAL LIMITED INDICATIONS: AAA AND BACK PAIN TECHNIQUE: Real time scanning was performed of the aorta and iliac arteries, with image documentation. COMPARISON: [facility], CT, CT CHEST ABD PELVIS W CON, 10/28/2014, 16:17. FINDINGS: Aorta: Proximal aortic diameter measures 2.8 cm. Mid-aorta measures 3.0 cm. Distal aortic diameter is 3.6 cm. Iliac arteries: Right common iliac artery measures 0.9 cm. Left common iliac artery measures 0.2 cm. IMPRESSION: No change to slight increase in size of the descending distal abdominal aortic aneurysm. Dictated by: Raf CUEVAS Interpreted: Francie Brunson MD on 05/13/2016 at 16:26 Transcribed by: LEIF on 05/13/2016 at 16:27 Approved by: Francie Brunson MD, PhD on 05/13/2016 at 20:30 Cardiac Echo Impressions Study location field not populated with appropriate location Echocardiogram Report Name: LUCAS SMART GStudy Date: 05/12/2016 Height: 75 in Hospital Weight: 146 lb Gender: Male BSA: 1.9 m2 : 1945 Age: 70 yrs BP: 124/77 mmHg Reason For Study: SOB Ordering Physician: [facility] Performed By: Lauren Erickson Interpretation Summary The left ventricle is severely dilated. Left ventricular systolic function is severely reduced. The ejection fraction is estimated to be 20-25%. The anteroseptal wall appears to be more preserved. The E/E' ratio is severely increased, suggesting possible increased filling pressures. The right ventricle is mildly dilated. Right ventricular systolic function is borderline reduced. The right ventricular systolic pressure is estimated at 67 mmHg assuming a right atrial pressure of 15 mm Hg. The left atrium is severely dilated. The right atrium is moderately dilated. There is moderate to severe mitral regurgitation. There is mild to moderate tricuspid regurgitation. There is no other significant valvular heart disease. The aortic root is normal size. Assessment & Plan 70 year old male with a history of CHF, COPD, and asthma [facility] his due to 4-5 days of acute on chronic shortness of breath. Symptoms were treated with albuterol treatments at home with no relief. Associated symptoms include cough, and chest pain that he speculates is secondary to coughing. Patient denies history of [place], diabetes, and cancer. states that the patient has not taken his morning medications, with the exception of prednisone patient came to [facility] emergency room and was evaluated there and it was determined that he needed to be admitted to the hospital service. Patient was admitted to the hospital service for further evaluation treatment. # COPD and Asthma exacerbation - We will continue Oxygen supplement 2 L nasal cannula to keep oxygen saturation around 92-95. - Bronchodilators : We will continue DuoNeb nebulizer every 4 hours. We will continue Advair 50/250 g inhaler twice a day - IV steroids : Decrease to Methylprednisolone 40 mg IV every 8 hours. We have decreased to every 12 hours and then change to oral prednisone 20 mg by mouth daily. - Will monitor on oral steroids. # Acute on chronic systolic congestive heart failure - Echocardiogram shows an ejection fraction of only 20-25% - Patient is coughing up white phlegm - We will change atenolol to metoprolol succinate 25 mg by mouth twice a day to start with - on Lasix to 40 mg IV twice a day - Continue telemetry monitoring # Leukocytosis - Still significantly elevated. But trending down. - Etiology appears to be due to steroid use. - Off antibiotics white blood cell count appears to be stable - We have checked inflammatory markers including C-reactive protein and sedimentation rate) calcitonin all of which are normal. - Agree that there is no evidence of infection at this time and agree and holding antibiotics at this time. # Hypertension - Appears to be controlled at this time - Due to systolic congestive heart failure addition of an AARTI inhibitor to beta- blockade should improve blood pressure to optimize cardiac function - We will continue to monitor closely # Chronic back pain - We will continue patient's home medications of OxyContin and OxyIR as previously scheduled. - Due to patient's current discomfort will add Toradol low-dose IV when necessary for breakthrough pain - We checked an abdominal ultrasound for evaluation of abdominal aortic aneurysm which may be contributing to his back pain. The aneurysm's diameter was up to 3.6 cm distally. Smoking cessation counseling was performed by the admitting physician and I also counseled him on quitting. Patient admits that the nicotine patch is taking the urge to smoke away. GI Prophylaxis: Proton Pump Inhibitor VTE Prophylaxis: Sub-Q Heparin (Unfractionated) VTE Mechanical Devices: Intermittant Pneumatic CD Resuscitation Status: CPR: Attempt Resuscitation Jose Miller MD May 15, 2016 09:04
[2016-05-15] MEDS: LORazepam 0.5 mg Tablet PO PRN (20:11)
[2016-05-16 01:05] VITALS: BP 99/64; PULSE 71; RESP 20; O2SAT 96
[2016-05-16 06:05] LABS: BASOPHILS % (AUTO) 0.1 % (0-3); EOSINOPHILS % (AUTO) 0.7 % (0-5); MONOCYTES % (AUTO) 9.1 % (4-12); Mean Corpuscular Hemoglobin 27.8 pg (27.0-35.0); NEUTROPHILS % (AUTO) 80.3 % (40-74); Platelet Count 386 bil/L (150-400)
[2016-05-16 06:10] VITALS: PULSE 67
[2016-05-16] MEDS: Furosemide 10 mg/mL 4 mL Inj IVPUSH SCH (06:10)
[2016-05-16] MEDS: Morphine ER 30 mg (MS Contin) Tablet PO SCH (06:10)
[2016-05-16 06:22] VITALS: BP 102/65; PULSE 61; RESP 20; O2SAT 95
[2016-05-16 08:11] VITALS: PULSE 66; RESP 18; O2SAT 92
[2016-05-16] MEDS: Albuterol-Ipratropium 3 mL Inhalation Solution NEB SCH (08:11)
[2016-05-16] MEDS: Pantoprazole 40 mg ER24 Tablet PO SCH (08:22)
[2016-05-16] MEDS: predniSONE 20 mg Tablet PO SCH (08:22)
[2016-05-16] MEDS: MeTOProlol XL 25 mg ER24 Tablet PO SCH (08:22)
[2016-05-16] MEDS: Fluticasone-Salmererol 250-50 Inhaler INHALATION SCH (08:22)
[2016-05-16] MEDS: Heparin 5,000 Unit/mL Inj SUBQ SCH (08:23)
--- NOTE | 2016-05-16 08:56 | PCM.DIMED ---
Discharge Instructions Date of Service May 16, 2016 Dates of Hospitalization May 11, 2016 at 15:29 Discharge Diagnosis Discharge Diagnosis - COPD exacerbation. Call your provider Fever or Chills, Shortness of breath, Bleeding, Chest pain, Vomitting, Excessive diarrhea, Weakness (unilateral) Patient Instructions Follow-up with PCP in: 1 week Jose Miller MD May 16, 2016 08:56
[2016-05-16] MEDS ORDERED: PRED-508 PO (08:57)
--- NOTE | 2016-05-16 09:00 | PCM.DC.MED ---
Discharge Summary Date of Service May 16, 2016 Dates of Hospitalization Date of Hospital Admission May 11, 2016 at 15:29 Date of Discharge: May 16, 2016 Providers: Admitting Physician: Dayne Miramontes MD [facility] Attending Physician: Dayne Miramontes MD Diagnosis at Time of Discharge Diagnosis at Time of Discharge - COPD exacerbation. Procedures XRay, CTs & MRIs PROCEDURE: X-RAY CHEST ONE VIEW, PORTABLE ([id number]) INDICATIONS: SOB TECHNIQUE: One view of the chest was acquired. COMPARISON: [facility], CR, XR CHEST 2V AP/PA AND LAT, 02/23/2016 , 7:41 AM. [facility], CR, XR CHEST 2V AP/PA AND LAT, 04/18/2016, 10:41 AM. [facility], CR, XR CHEST 1VW (PORTABLE), 11/22/2015, 11: 26. FINDINGS: Surgical changes and devices: None. Lungs and pleura: No pleural effusions or pneumothorax. Lungs are clear. Mediastinum: Mediastinal contours appear normal. Heart size is normal. Bones and chest wall: No suspicious bony lesions. Overlying soft tissues appear unremarkable. IMPRESSION: No acute cardiopulmonary disease. Dictated by: Julian Clement M.D. on 05/11/2016 at 13:10 Approved by: Julian Clement M.D. on 05/11/2016 at 13:12 PROCEDURE: US AORTA RETROPERITONEAL LIMITED INDICATIONS: AAA AND BACK PAIN TECHNIQUE: Real time scanning was performed of the aorta and iliac arteries, with image documentation. COMPARISON: [facility], CT, CT CHEST ABD PELVIS W CON, 10/28/2014, 16:17. FINDINGS: Aorta: Proximal aortic diameter measures 2.8 cm. Mid-aorta measures 3.0 cm. Distal aortic diameter is 3.6 cm. Iliac arteries: Right common iliac artery measures 0.9 cm. Left common iliac artery measures 0.2 cm. IMPRESSION: No change to slight increase in size of the descending distal abdominal aortic aneurysm. Dictated by: Raf Cabrera A Interpreted: Francie Brunson MD on 05/13/2016 at 16:26 Transcribed by: LEIF on 05/13/2016 at 16:27 Approved by: Francie Brunson MD, PhD on 05/13/2016 at 20:30 Cardiac Echo Impression Study location field not populated with appropriate location Echocardiogram Report Name: LUCAS SMART GStudy Date: 05/12/2016 Height: 75 in Hospital Weight: 146 lb Gender: Male BSA: 1.9 m2 : 1945 Age: 70 yrs BP: 124/77 mmHg Reason For Study: SOB Ordering Physician: [facility] Performed By: Lauren Erickson Interpretation Summary The left ventricle is severely dilated. Left ventricular systolic function is severely reduced. The ejection fraction is estimated to be 20-25%. The anteroseptal wall appears to be more preserved. The E/E' ratio is severely increased, suggesting possible increased filling pressures. The right ventricle is mildly dilated. Right ventricular systolic function is borderline reduced. The right ventricular systolic pressure is estimated at 67 mmHg assuming a right atrial pressure of 15 mm Hg. The left atrium is severely dilated. The right atrium is moderately dilated. There is moderate to severe mitral regurgitation. There is mild to moderate tricuspid regurgitation. There is no other significant valvular heart disease. The aortic root is normal size. Brief History This is a 70 years old man with past medical history of COPD secondary to tobacco abuse, hypertension, chronic pain, chronic narcotic user who was sent to the hospital from the [facility] for shortness of breath. Patient stated he has been short of breath for 3-4 days or so. Initially the shortness of breath would improve for a while with nebulizer treatment but as of today he continued to be severely short of breath despite multiple nebulizer treatment. And also chest pain with coughing, generalized weakness. She denied abdominal pain, fever, chills, nausea, vomiting. He presented today to [facility] clinic and was rerouted to the hospital for full evaluation. in ER chest x-ray is negative but patient was hypoxic and did not respond to multiple nebulizer treatments and IV steroids. His leukocytosis is 23,000 but patient has been on and off prednisone chronically. He is a current smoker despite his COPD. Hospital Course 70 year old male with a history of CHF, COPD, and asthma [facility] his due to 4-5 days of acute on chronic shortness of breath. Symptoms were treated with albuterol treatments at home with no relief. Associated symptoms include cough, and chest pain that he speculates is secondary to coughing. Patient denies history of MD, diabetes, and cancer. states that the patient has not taken his morning medications, with the exception of prednisone patient came to [facility] emergency room and was evaluated there and it was determined that he needed to be admitted to the hospital service. Patient was admitted to the hospital service for further evaluation treatment. # COPD and Asthma exacerbation - We will continue Oxygen supplement 2 L nasal cannula to keep oxygen saturation around 92-95. - Bronchodilators : We will continue DuoNeb nebulizer every 4 hours. We will continue Advair 50/250 g inhaler twice a day - IV steroids : Decrease to Methylprednisolone 40 mg IV every 8 hours. We have decreased to every 12 hours and then change to oral prednisone 20 mg by mouth daily. - WILL DISCHARGE ON 20 MG OF PREDNISONE FOR 5 MORE DAYS # Acute on chronic systolic congestive heart failure - Echocardiogram shows an ejection fraction of only 20-25% - Patient is coughing up white phlegm - We will change atenolol to metoprolol succinate 25 mg by mouth twice a day to start with - Started on Lasix to 40 mg IV twice a day # Leukocytosis - Still significantly elevated. But trending down. - Etiology appears to be due to steroid use. - Off antibiotics white blood cell count appears to be stable - WBC trended down # Chronic back pain - We will continue patient's home medications of OxyContin and OxyIR as previously scheduled. - Due to patient's current discomfort will add Toradol low-dose IV when necessary for breakthrough pain - We checked an abdominal ultrasound for evaluation of abdominal aortic aneurysm which may be contributing to his back pain. The aneurysm's diameter was up to 3.6 cm distally. Smoking cessation counseling was performed by the admitting physician and I also counseled him on quitting. Patient admits that the nicotine patch is taking the urge to smoke away. Exam Vital Signs (Last) Date Time Temp Pulse Resp B/P Pulse Ox O2 Delivery O2 Flow Rate FiO2 05/16/16 08:11 66 18 92 Room Air 05/16/16 06:22 36.7 102/65 05/11/16 20:42 2 Exam General: Patient is in no apparent distress. HEENT: Head is atraumatic and normocephalic. Eyes: Pupils are equally round and reactive to light and accommodation. Extraocular muscles are intact. Sclera are white, anicteric. Subconjunctival mucosa is pink. Ears and nose are unremarkable. Oropharynx: There is no mucosal lesions, there is no thrush, there is no pharyngitis. Neck: Is supple, there are no nodes, or masses or tenderness. Chest: There are decreased breath sounds overall. Patient has significant kyphosis. There are no rhonchi, wheezes or rubs. Heart: Rate, rhythm is regular. There is no murmur, rub or gallop. Abdomen: Good bowel sounds are present. Abdomen is soft, nontender, no organomegaly or masses were appreciated. Extremities: Are symmetrical and well perfused. There is no edema, there is no cellulitis, no rash. Neurologic: There are no focal neurological deficits. Cranial nerves II through XII are intact. There are no sensory or motor deficits. Psychiatric: Patients mood is calm and he shows no sign of agitation. Test 05/11/16 12:20 05/13/16 06:03 05/14/16 05:35 05/16/16 05:45 Urine Color Straw (YELLOW) Urine Appearance Hazy (CLEAR,HAZY) Urine pH 7.0 (5.0-8.0) Urine Specific [place] 1.015 (1.003-1.035) Urine Protein Negativemg/dL (NEG,TRACE) Urine Glucose (UA) Negativemg/dL (NEGATIVE) Urine Ketones Negativemg/dL (NEGATIVE) Urine Occult Blood Negative (NEGATIVE) Urine Nitrite Negative (NEGATIVE) Urine Bilirubin Negative (NEGATIVE) Urine Urobilinogen Normalmg/dL (NORMAL) Urine Leukocyte Esterase Negative (NEGATIVE) Urine RBC 0-2/hpf (0-2) Urine WBC 0-5/hpf (0-5) Urine Epithelial Cells Occasional/hpf (NONE-MOD) Urine Crystals None seen (NONE SEEN) Urine Bacteria None/hpf (NONE-FEW) Urine Hyaline Casts None/lpf (NONE) Urine Granular Casts None seen (NONE SEEN) Urine Waxy Casts None seen (NONE SEEN) Urine Red Blood Cell Casts None seen (NONE SEEN) Urine White Blood Cell Casts None seen (NONE SEEN) Urine Mucus Present (None Seen) Urine Trichomonas None seen (NONE SEEN) Urine Yeast None (NONE SEEN) Urinalysis Comment None Urine Culture Reflexed Not indicated Erythrocyte Sedimentation Rate 5mm/hr (0-30) Phosphorus Level 5.6mg/dL (2.5-4.9) Magnesium Level 2.3mg/dL (1.6-2.6) Troponin T < 0.010ug/L (0.0-0.011) C-Reactive Protein 0.3mg/dL (0.0-0.5) Triglycerides Level 97mg/dL (0-149) Cholesterol Level 164mg/dL (100-199) LDL Cholesterol, Calculated 92.600mg/dL (0-99) VLDL Cholesterol 19.400mg/dL HDL Cholesterol 52mg/dL (>39) Cholesterol/HDL Ratio 3.15 (0.0-4.4) Procalcitonin 0.03ng/mL (0.00-0.08) Pro-B-Type Natriuretic Peptide 3688pg/mL (0-376) White Blood Count 19.4th/mm3 (3.8-10.1) Red Blood Count 5.08mil/mm3 (4.40-5.80) Hemoglobin 14.1g/dL (13.8-17.2) Hematocrit 44.7% (41.0-50.0) Mean Corpuscular Volume 88.0fL (81-100) Mean Corpuscular Hemoglobin 27.8pg (27.0-35.0) Mean Corpuscular Hemoglobin Concent 31.5% (32.0-37.0) Red Cell Distribution Width 18.0% (12.3-15.4) Platelet Count 386bil/L (150-400) Neutrophils (%) (Auto) 80.3% (40-74) Lymphocytes (%) (Auto) 9.2% (14-46) Monocytes (%) (Auto) 9.1% (4-12) Eosinophils (%) (Auto) 0.7% (0-5) Basophils (%) (Auto) 0.1% (0-3) Sodium Level 142mEq/L (134-144) Potassium Level 4.9mEq/L (3.5-5.2) Chloride Level 99mEq/L (97-108) Carbon Dioxide Level 32mmol/L (18-29) Blood Urea Nitrogen 44mg/dL (8-27) Creatinine 1.11mg/dL (0.76-1.27) Estimat Glomerular Filtration Rate 69mL/min (>59) Glucose Level 91mg/dL (60-99) Calcium Level 9.2mg/dL (8.5-10.1) Total Bilirubin 0.7mg/dL (0.0-1.2) Aspartate Amino Transf (AST/SGOT) 16U/L (0-50) Alanine Aminotransferase (ALT/SGPT) 47U/L (0-44) Alkaline Phosphatase 74U/L (25-160) Total Protein 6.2g/dL (6.4-8.4) Albumin 3.6g/dL (3.4-5.0) Microbiology Results Name: LUCAS SMART Age/Sex: 70/M Attend Dr: Dayne Miramontes MD Acct: [id number] Unit: [id number] Status: ADM IN Location: [facility] 3009-1 Re05/11/16 Disch: Specimen: [id number] Collected: 05/13/16 Status: RES Req#: [id number] Received: 05/13/16 Source: SPUTUM EXP Sp Desc : Subm Dr: Jose Antonio Neal MD Ordered: GRAM SPT REFLEX, SPUTUM CULTURE Comments: Collected by Nurse/Unit? Y/N Y Procedure Result Verified Site Microbiology MAGGIE CULT SPUTUM GS Final 05/13/16-1305 SPT GRAM STAIN MODERATE POLYS FEW EPITHELIAL CELLS MODERATE MIXED NORMAL GRAYSON This Spec is of good Quality and acceptable for Cult Discharge Medications Discharge Medications Amlodipine (Amlodipine) 10 Mg Tablet 10 MG PO DAILY (Reported) Aspirin (Aspirin) 81 Mg Tablet 81 MG PO DAILY (Reported) Atenolol (Atenolol) 50 Mg Tablet 50 MG PO DAILY (Reported) Cholecalciferol (Vitamin D3) (Vitamin D) 1,000 Unit Tablet 2,000 UNIT PO DAILY ( Reported) Cyanocobalamin (Vitamin B-12) (Vitamin B-12) 1,000 Mcg Tablet 1,000 MCG PO DAILY (Reported) Furosemide (Furosemide) 40 Mg Tablet 40 MG PO DAILY (Reported) Lisinopril (Lisinopril) 30 Mg Tablet 30 MG PO DAILY (Reported) Morphine Sulfate ER (Morphine Sulfate ER) 30 Mg Tablet 30 MG PO TID (Reported) Potassium Chloride (Potassium Chloride) 10 Meq Capsule.er 10 MEQ PO DAILY TAKE WITH FOOD Prescribed by: DANE REYES MD Prednisone (Deltasone) 20 Mg Tablet 20 MG PO DAILY Prescribed by: JOSE RODRIGUEZ MD As needed Albuterol Neb Soln (Albuterol Neb Soln) 1.25 Mg/3 Ml Vial.neb 1.25 MG INHALATION Q4H PRN PRN For Shortness of Breath Prescribed by: BRENDA WESTON MD Albuterol Sulfate (Proventil HFA Inhaler) 6.7 Gm Hfa.aer.ad 2 PUFF INH Q4 PRN PRN For Shortness of Breath (Reported) Ipratropium/Albuterol Sulfate (Iprat-Albut 0.5-3(2.5) mg/3 mL Inhalant Soln) 3 Ml Ampul.neb 3 ML IH Q6 PRN PRN For Shortness of Breath (Reported) Lorazepam (Lorazepam) 0.5 Mg Tablet 0.5 MG PO Q8H PRN PRN For Anxiety (Reported ) Followup Plan Follow-up with PCP in: 1 week Jose Rodriguez MD May 16, 2016 09:00
[2016-05-16 09:01] VITALS: BP 96/64; PULSE 71; RESP 16; O2SAT 94
[2016-05-16 09:28] VITALS: PULSE 70
[2016-05-16] MEDS ORDERED: MORP-33 PO (12:33)
[2016-05-16] MEDS ORDERED: OXYC-474 PO (12:35)
== END 2016-05-16 13:15 | disposition home health service (06) | DRG 190 ==
LOC: EDBD 11:18 → SED 11:18 → EDUNIT# 11:18 → MPC 15:29 → OBSVTOIN 15:29
PROVIDERS: ADMIT Internal Medicine; ATTEND Internal Medicine
DX: J44.1 Chronic obstructive pulmonary disease with (acute) exacerbation (principal); I50.23 Acute on chronic systolic (congestive) heart failure; F11.20 Opioid dependence, uncomplicated; J45.901 Unspecified asthma with (acute) exacerbation; I10 Essential (primary) hypertension; G89.29 Other chronic pain; F17.210 Nicotine dependence, cigarettes, uncomplicated

== ENCOUNTER 2016-07-02 09:58 | Inpatient (IN) | payer MEDICARE ==
[2016-07-02] VITALS (16 sets, daily range): BP systolic 108–136; BP diastolic 58–81; PULSE 67–96; RESP 12–20; O2SAT 92–100
[~2016-07-02] VITALS: Ht 175.3 cm; Wt 61.9 kg
--- NOTE | 2016-07-02 09:57 | ED.REPORT ---
HPI-General Illness Date of Service July 02, 2016 ED Provider: Dr. Fraser 70 y/o male with a hx of CHF,COPD,HTN and asthma presents to the ED via EMS due to respiratory distress, onset few hours ago. As per the , the pt had a seizure-like episode, where he was kicking his leg and his eyes rolled back. She states he was being unresponsive and they started CPR. It is unclear if he had a pulse but he aroused with CPR. When the EMS arrived, he was alert but combative. He was hypoxic and responded to 100% oxygen on non-rebreather. He responded even better to BiPAP. The pt was also given 1 spray of Nitroglycerin. The EMS reports that the pt has had a gall bladder infection for the past month , for which he is taking antibiotics.The pt had complained of some abdominal pain last night but was otherwise doing okay. The family last saw him normal last night and don't know how long he had been unresponsive.The pt was seen at the ED two weeks ago for chronic SOB. He was also admitted at [facility] for percutaneous cholecystostomy on 05/20/16. The pt denies any pain currently and reports his breathing feels better at the ED. Nursing Notes Stated Complaint: RESPIRATORY DISTRESS Nursing Notes Reviewed: Yes Allergies: Coded Allergies: No Known Allergies (Verified Allergy, Unknown, 08/04/15) Scheduled Amlodipine (Amlodipine) 10 Mg Tablet 10 MG PO DAILY Aspirin (Aspirin) 81 Mg Tablet 81 MG PO DAILY Atenolol (Atenolol) 50 Mg Tablet 50 MG PO DAILY Atorvastatin (Lipitor) 20 Mg Tablet 20 MG PO DAILY Carvedilol (Carvedilol) 25 Mg Tablet 25 MG PO BID Cholecalciferol (Vitamin D3) (Vitamin D) 1,000 Unit Tablet 2,000 UNIT PO DAILY Cyanocobalamin (Vitamin B-12) (Vitamin B-12) 1,000 Mcg Tablet 1,000 MCG PO DAILY Furosemide (Furosemide) 40 Mg Tablet 40 MG PO DAILY Lisinopril (Lisinopril) 30 Mg Tablet 30 MG PO DAILY Morphine Sulfate ER (Morphine Sulfate ER) 30 Mg Tablet 30 MG PO TID Potassium Chloride (Potassium Chloride) 10 Meq Capsule.er 10 MEQ PO DAILY TAKE WITH FOOD Prednisone (Deltasone) 20 Mg Tablet 20 MG PO DAILY Spironolactone (Spironolactone) 25 Mg Tablet 25 MG PO DAILY Scheduled PRN Albuterol Neb Soln (Albuterol Neb Soln) 1.25 Mg/3 Ml Vial.neb 1.25 MG INHALATION Q4H PRN PRN For Shortness of Breath Albuterol Sulfate (Proventil HFA Inhaler) 6.7 Gm Hfa.aer.ad 2 PUFF INH Q4 PRN PRN For Shortness of Breath Ipratropium/Albuterol Sulfate (Iprat-Albut 0.5-3(2.5) mg/3 mL Inhalant Soln) 3 Ml Ampul.neb 3 ML IH Q6 PRN PRN For Shortness of Breath Lorazepam (Lorazepam) 0.5 Mg Tablet 0.5 MG PO Q8H PRN PRN For Anxiety Oxycodone (Roxicodone) 5 Mg Tablet 5 MG PO Q4H PRN PRN For Pain General Time Seen by MD: 09:56 Chief Complaint Breathing problem Hx Obtained From: Patient, EMS Arrived By: Ambulance Sudden in Onset?: Yes Onset Occurred: 1 - 4 hours ago Symptom Duration: Since onset Severity: Current: No pain currently Severity: Maximum: No pain Recent Healthcare: Recent doctor visit Similar Sx Previous: Yes Past Medical History Past Medical History Notes: Primary care at [facility] Past Medical History Chronic Back Pain w/DJD Anxiety Reports: Asthma, COPD, Congestive heart failure, Hypertension Past Surgical History Reports: Tonsillectomy Smoking History Current Every Day Smoker Social History Alcohol Use: Denies alcohol use Drug Use: Denies drug use Other Social History: , Local resident Ambulatory Status Independent Review of Systems Full Review of Systems Respiratory: Reports: Shortness of breath GI: Reports: Abdominal pain Neurologic: Reports: Change LOC, Syncope Complete sys rev & neg: except as marked. Physical Exam Unclear if he took narcotics last night. Vital Signs Vital Signs Date Time Temp Pulse Resp B/P Pulse Ox O2 Delivery O2 Flow Rate FiO2 07/02/16 11:57 74 17 115/64 99 BiPAP 07/02/16 11:44 07/02/16 11:24 88 16 108/58 100 Room Air 07/02/16 11:04 83 20 121/77 100 BiPAP 07/02/16 11:00 50 07/02/16 10:30 86 20 130/69 100 BiPAP 07/02/16 10:25 18 100 100 07/02/16 10:02 36.4 93 16 120/66 100 BiPAP Initial VS: Reviewed, Vital signs normal Head / Eyes: Atraumatic, Normocephalic, PERRL ENT: Mucous membranes moist, Conjunctiva normal, No scleral icterus Neck: Supple, Non-tender, Full range of motion Extremities: Vascular intact, Neuro intact, No swelling, No tenderness General/Constitutional: Awake, Alert Appearance / Presentation: Positive: Cachectic, Pale Responsive to direct stimulation. Respiratory / Chest: Atraumatic Wheezing / Retractions: Positive: Wheeze insp/exp diffuse Significantly work of breathing with accessory muscles. Poor air movement. Cardiovascular: Regular rhythm Heart Rate / Rhythm: Positive: Tachycardia Overriding lung noises interfering with heart sounds. Diffused overall perfusion Abdomen: Atraumatic, Soft, Non-tender Hypoactive bowel tones but no pain. Drainage from choleocystectomy tube. Skin: Atraumatic, Warm, Dry Scattered bruises all over the skin. No obvious skin breakdown. Neurologic: No motor deficits, No sensory deficits Oriented to person. Unable to describe what happened last night. Interpretation & Diagnostics Blood gas report: pH = 27.389 pCO2 = 45 pO2 = 283.0 cHCO3- = 26.7 cBase = 1.9 Pt on 100% oxygen Lab Results Interpretation Result Diagram: 07/02/16 1005 07/02/16 1005 Test 07/02/16 10:05 07/02/16 11:00 White Blood Count 18.4th/mm3 (3.8-10.1) Red Blood Count 4.72mil/mm3 (4.40-5.80) Hemoglobin 13.3g/dL (13.8-17.2) Hematocrit 44.2% (41.0-50.0) Mean Corpuscular Volume 93.6fL (81-100) Mean Corpuscular Hemoglobin 28.2pg (27.0-35.0) Mean Corpuscular Hemoglobin Concent 30.1% (32.0-37.0) Red Cell Distribution Width 16.7% (12.3-15.4) Platelet Count 474bil/L (150-400) Neutrophils (%) (Auto) 55.8% (40-74) Lymphocytes (%) (Auto) 26.6% (14-46) Monocytes (%) (Auto) 11.6% (4-12) Eosinophils (%) (Auto) 5.1% (0-5) Basophils (%) (Auto) 0.4% (0-3) Sodium Level 142mEq/L (134-144) Potassium Level 4.2mEq/L (3.5-5.2) Chloride Level 97mEq/L (97-108) Carbon Dioxide Level 24mmol/L (18-29) Blood Urea Nitrogen 14mg/dL (8-27) Creatinine 0.96mg/dL (0.76-1.27) Estimat Glomerular Filtration Rate 82mL/min (>59) Glucose Level 224mg/dL (60-99) Calcium Level 9.3mg/dL (8.5-10.1) Total Bilirubin 0.4mg/dL (0.0-1.2) Aspartate Amino Transf (AST/SGOT) 18U/L (0-50) Alanine Aminotransferase (ALT/SGPT) 9U/L (0-44) Alkaline Phosphatase 86U/L (25-160) Troponin T 0.013ug/L (0.0-0.011) Pro-B-Type Natriuretic Peptide 6274pg/mL (0-376) Total Protein 6.8g/dL (6.4-8.4) Albumin 3.4g/dL (3.4-5.0) Procalcitonin 0.08ng/mL (0.00-0.08) Urine Color Yellow (YELLOW) Urine Appearance Clear (CLEAR,HAZY) Urine pH 6.0 (5.0-8.0) Urine Specific [place] 1.020 (1.003-1.035) Urine Protein 30mg/dL (NEG,TRACE) Urine Glucose (UA) Negativemg/dL (NEGATIVE) Urine Ketones Negativemg/dL (NEGATIVE) Urine Occult Blood Negative (NEGATIVE) Urine Nitrite Negative (NEGATIVE) Urine Bilirubin Negative (NEGATIVE) Urine Urobilinogen Normalmg/dL (NORMAL) Urine Leukocyte Esterase Negative (NEGATIVE) Urine RBC 3-10/hpf (0-2) Urine WBC 0-5/hpf (0-5) Urine Epithelial Cells Occasional/hpf (NONE-MOD) Urine Crystals None seen (NONE SEEN) Urine Bacteria None/hpf (NONE-FEW) Urine Hyaline Casts Occasional/lpf (NONE) Urine Granular Casts None seen (NONE SEEN) Urine Waxy Casts None seen (NONE SEEN) Urine Red Blood Cell Casts None seen (NONE SEEN) Urine White Blood Cell Casts None seen (NONE SEEN) Urine Mucus Present (None Seen) Urine Trichomonas None seen (NONE SEEN) Urine Yeast None (NONE SEEN) Urinalysis Comment None Urine Culture Reflexed Not indicated ECG Interpretation ECG Interpretation: Normal sinus rhythm. Rate 86. LVH with IVCD, LAD and decondary repol abnormal. Time: 10:09 Interpreted by: ED physician X-Ray Chest Interpretation Chest Xray Interpretation: IMPRESSION: Possible mild pulmonary edema. No focal consolidation. Dictated by: Olivier Pierce M.D. on 07/02/2016 at 10:52 Approved by: Olivier Pierce M.D. on 07/02/2016 at 10:55 View: Portable, 1 view Interpretation / Wet Read by: Interpret - Radiologist Re-Eval/Medical Decision Med Decision/Clinical Course 70-year-old man with sounds like a respiratory arrest at home. With deep stimulation he did improve initial first responders had a nonrebreather with sats coming up from the 70s to the mid 80s with food court team member arrival he is placed on BiPAP and 100% oxygen with sats going up into the upper 90s and patient much more comfortable. Initially quite confused with clearing as oxygenation levels are maintained. Initial concern was for sepsis however no obvious source is identified. Initially pneumonia was the culprit antibiotics were started for a hospital-acquired pneumonia. Chest x-ray does not confirm that. He does have a cholecystostomy tube in place and absolutely no abdominal tenderness. LFTs are all unremarkable. Urine does not look like a source and there is no obvious skin sources. Continues to do well with BiPAP does better with 3 L of fluids in his had steroids nebs magnesium is now much more alert and interactive and answering questions. Wheeze has improved significantly. Discussion regarding CODE STATUS he does want active interventions but clearly would not want to be intubated ever nor have CPR done. This is reviewed with his and son both of whom agreed this time as well Time of Eval: 12:25 Patient Status: Mild relief Re-Evaluation/Progress Note: Rechecked pt. BP impproving. Discussed lab results, imaging results and plan to admit with the pt and his family. The pt and his family understand and agree with the plan. All questions answered. Consultation : Referral / Consult Name: Alonso Stephens Consulted With: Hospitalist Call Returned at: 12:16 Packer Denture: Will see patient, Agrees with eval, Agrees with plan, Accepts admit Counseled Regarding: Diagnosis, Lab results, Need for admission Discharge & Departure Primary Impression: Respiratory arrest Additional Impressions: COPD with acute exacerbation Congestive heart failure Congestive heart failure type: unspecified congestive heart failure type Congestive heart failure chronicity: unspecified congestive heart failure chronicity Qualified Code: I50.9 - Heart failure, unspecified Sepsis Disposition: ADMITTED TO HOSPITAL Discharge Condition All VS Reviewed: Yes Referrals: [facility] (PCP) Crit Care Except Billable Proc Time Spent: 30-74 minutes Services Performed: Patient management by me, Time spent at bedside, Reviewing test results, Reviewing imaging, Discussing patient care, Documentation in record, Time with fam/surrogate Scribe Attestation Portions of this note were transcribed by Dagmar Natarajan. I, , personally performed the history, physical exam and medical decision-making;I reviewed and confirmed the accuracy of the information in the transcribed note. Signed by Ashleigh Jaffe. 07/02/16 12:32 copies to: [facility] Arin Fraser MD July 02, 2016 09:57 Dagmar Natarajan July 02, 2016 10:12
[~2016-07-02 09:58] MED LIST changes: +CHOL100043 PO; -ERGO500050 PO; -FUR20 PO; +FURO40TA4 PO; -HYDR50CA PO; +LORA0.5T PO; -PRE20 PO; +PRED-508 PO; -ZIT250 PO
[2016-07-02] MEDS ORDERED: MethylprednisoLONE Sodium Succinate 62.5 mg/mL 2 mL Inj IVPUSH ONE (10:15)
[2016-07-02] MEDS ORDERED: Albuterol-Ipratropium 3 mL Inhalation Solution NEB ONE (10:15)
[2016-07-02] MEDS ORDERED: Magnesium Sulf 2 Gm/50mL Water 2 GM in IV Premix 1 EACH IV ONE (10:15)
[2016-07-02] MEDS ORDERED: Vancomycin Dose per Pharmacist XX ONE (10:15)
[2016-07-02] MEDS ORDERED: Piperacillin-Tazo 3.375 Gm Inj 3.375 GM in Dextrose 5% Minibag Plus 50 ML IV ONE (10:15)
[2016-07-02] MEDS ORDERED: levoFLOXacin Inj 750 MG in IV Premix 1 EACH IV ONE (10:15)
[2016-07-02] MEDS ORDERED: 0.9% Sodium Chloride 1,000 ML IV SCH ×2 (10:20→12:21)
[2016-07-02 10:22] LABS: Mean Corpuscular Hemoglobin 28.2 pg (27.0-35.0)
[2016-07-02 10:28] LABS: BASOPHILS % (AUTO) 0.4 % (0-3); EOSINOPHILS % (AUTO) 5.1 % (0-5); MONOCYTES % (AUTO) 11.6 % (4-12); Mean Corpuscular Volume 93.6 fL (81-100); NEUTROPHILS % (AUTO) 55.8 % (40-74); Platelet Count 474 bil/L (150-400)
--- NOTE | 2016-07-02 10:30 | ABG ---
DateTimeAnalyzed 10:26:00 -_ pH ____7.389 - 7.350 7.450 pCO2 ___45.2__ -mmHg 35.0 45.0 pO2 283 -mmHg 69.0 116 HCO3- ___26.7__ -mmol/L 22.0 26.0 ABE ____1.9__ -mmol/L -2.0 2.0 tHb ___12.3__ -g/dL O2Hb ___93.1__ -% COHb ____5.4__ -% MetHb ____1.0__ -% sO2 ___99.5__ -% 25.0 FIO2 __100.0__ -% Drawn By [facility] - Date/Time Notified____ 10:30:00 -_ Oxygen Device 1 _ROOM AIR - Notified By [facility] - Notified Whom [facility], Arin MD -__ B 752 -mmHg tO2 ___16.8__ -Vol%
[2016-07-02] MEDS ORDERED: Vancomycin Inj 1,500 MG in 0.9% Sodium Chloride 500 ML IV ONE (10:35)
[2016-07-02 10:40] LABS: TROPONIN T 0.013 ug/L (0.0-0.011)
[2016-07-02] MEDS ORDERED: 0.9% Sodium Chloride 1,000 ML IV ONE (10:55)
--- NOTE | 2016-07-02 10:56 | DRSVH ---
PROCEDURE: X-RAY CHEST ONE VIEW, PORTABLE ([id number]) INDICATIONS: respiratory arrest TECHNIQUE: One view of the chest was acquired. COMPARISON: None. FINDINGS: Surgical changes and devices: None. Lungs and pleura: No pleural effusions or pneumothorax. No evidence of aspiration. There is slight a ccentuation of interstitial markings which could reflect minimal pulmonary edema. Mediastinum: Mediastinal contours appear normal. Heart size is normal. Aorta is calcified and mildl y tortuous. Bones and chest wall: No suspicious bony lesions. Overlying soft tissues appear unremarkable. Spira l artifact overlies the right side of the image. IMPRESSION: Possible mild pulmonary edema. No focal consolidation. Dictated by: Olivier Pierce M.D. on 07/02/2016 at 10:52 Approved by: Olivier Pierce M.D. on 07/02/2016 at 10:55
[2016-07-02 11:17] LABS: APPEARANCE,URINE CLEAR (CLEAR,HAZY); COLOR,URINE YELLOW (YELLOW); OCCULT BLOOD,URINE NEGATIVE (NEGATIVE); UROBILINOGEN,URINE NORMAL (NORMAL)
[2016-07-02] MEDS ORDERED: Ondansetron 2 mg/mL 2 mL Inj IVPUSH PRN (12:25)
[2016-07-02] MEDS ORDERED: Alum-Mag Hydrox-Simeth 30 mL Suspension PO PRN ×2 (12:25→15:55)
[2016-07-02] MEDS ORDERED: ATOR20TA PO (14:24)
[2016-07-02] MEDS ORDERED: CARV25TA2 PO (14:24)
[2016-07-02] MEDS ORDERED: SPIR25TA3 PO (14:24)
--- NOTE | 2016-07-02 14:31 | NUR ---
ED to PCC Pt arrived to PCC at approximately 1250 via gurney. Followed by RT, pt placed back on Bipap machine. Care continues
--- NOTE | 2016-07-02 14:48 | NUR ---
Pain Pt states he has chronic pain. Refusing Tylenol, waiting for MDs to view medication list. Repositioned pt, applied warm blankets, pillows under knees, elbow and back. Family in room. Care continues.
[2016-07-02] MEDS ORDERED: Polyethylene Glycol (PEG) 17 Gm Powder PO PRN (15:55)
[2016-07-02] MEDS ORDERED: Albuterol 2.5 mg/3 mL Inhalation Solution NEB PRN (16:15)
--- NOTE | 2016-07-02 18:07 | DRSVH ---
PROCEDURE: CT BRAIN WITHOUT CONTRAST ([id number]) INDICATIONS: 70 year-old male with respiratory arrest and possible seizure. TECHNIQUE: Noncontrast 4.5 mm thick angled axial sections acquired from the foramen magnum to the vertex, with c oronal reformats. COMPARISON: None. FINDINGS: Image quality: Excellent. CSF spaces: Basal cisterns are patent. No extra-axial fluid collections. The ventricles are symmet louie in size and shape. Brain: No intracranial bleeds or masses. There are mild periventricular white matter chronic small vessel ischemic changes. There is intracranial internal carotid artery atherosclerosis. Skull and face: Calvarium and visualized facial bones appear intact, without suspicious lesions. Sinuses: Visualized sinuses and mastoids are clear. IMPRESSION: No acute intracranial abnormalities. Mild periventricular white matter chronic small vess el ischemic change. Dictated by: Khalif Mas M.D. on 07/02/2016 at 18:04 Approved by: Khalif Mas M.D. on 07/02/2016 at 18:06
--- NOTE | 2016-07-02 18:29 | NUR ---
CT Pt off floor to CT with RN SBA with monitor.
--- NOTE | 2016-07-02 18:31 | NUR ---
Back to floor/Pain Back pain 10/10, administered 1 mL Morphine. Pt repositioned, RT assisting with Bipap. Care continues.
--- NOTE | 2016-07-02 18:34 | NUR ---
ED FLOOR CLEANER Note D/A: [facility] [employer] called overhead. FLOOR CLEANER presented to Pt's room to provide support and assistance as needed. P: FLOOR CLEANER notified that she would not be needed for this case. JOHN Riggins, AAC
--- NOTE | 2016-07-02 18:37 | PCM.HPMED ---
Subjective Date of Service July 02, 2016 Primary Provider: Admitting Physician: Alonso Stephens [facility] Attending Physician: Dayne Jordan MD Admit Status: From the Emergency Department Chief Complaint: Shortness of breath History of Present Illness: Mr Cortes is a 70-year-old male with a history of COPD, CHF, hypertension, and chronic back pain with narcotic habituation who presented to the emergency department via EMS in respiratory distress after he was found unresponsive at home. History obtained via chart review and family, due to patient condition. The patient's states that he was unresponsive this morning. She notes seizure like activity and states that he was kicking his legs, waving his arms and that his eyes rolled back. She denies a history of seizures or similar episodes in the past but states that he was incontinent of bladder and bowel. Their son, who lives with them, was also on the scene and called 911. He then initiated CPR and states that he heard bones cracking and forgot to check for a pulse. It is unclear if the patient had a pulse but he reportedly aroused with CPR. When EMS arrived, the patient was reportedly alert but combative and hypoxic. Per the family, patient complained of some abdominal pain last night and has not felt well for 3-4 days. reports chills, decreased appetite, one episode of diarrhea and chronic back pain but otherwise denies associated symptoms. Patient is able to answer some basic yes/no questions and reports back and rib pain as well as shortness of breath but denies chest pain, nausea or vomiting. Of note, patient's states that in the ambulance she thought his face may have looked different. She also reports that when the patient was discharged from [facility] on 05/16/16 she did not think he was ready to go home. The patient presented to the [facility] emergency department 2 days later, this is closer to home, for severe abdominal pain and found to have acute cholecystitis. He was then transferred to [place] and underwent percutaneous cholecystostomy on 05/20/16. Drain cultures grew Klebsiella pneumoniae resistant only to ampicillin. He completed a course of antibiotics including IV ceftriaxone/Flagyl and discharged with oral ciprofloxacin and flagyl on 06/02/16 with plan for definitive cholecystectomy in 8 weeks. Due to his comorbidities he was to have a cardiology evaluation prior to surgery. Family state that this has not yet been done because it is not [facility] by the [facility]. In the ED: Vitals 36.4, BP 115/64, 74, 17-20, 99% on BiPap 50%. Labs significant for a leukocytosis (18.4), elevated lactic acid (5.2), elevated troponin 0.013 and proBNP of 6274 as well as hyperglycemia (224). ECG showing normal sinus rhythm, rate 86 with LVH with interventricular conduction delay and left axis deviation. Chest xray without focal consolidation and mild pulmonary edema. Review of Systems: A comprehensive review of systems was conducted with the patient and found to be negative except as above in the History of Present Illness. Allergies Coded Allergies: No Known Allergies (Verified Allergy, Unknown, 08/04/15) Exam Lab & Micro Results Microbiology 07/02/16 Blood Culture - Final, Complete NO GROWTH AFTER 5 DAYS 07/02/16 MRSA (PCR) - Final, Complete 07/02/16 Gram Stain - Final, Complete 07/02/16 Culture & Sensitivity - Final, Complete 07/02/16 Anaerobic Culture - Final, Complete Review of Systems: Constitutional: Negative, except as otherwise mentioned in the history above. Ophthalmologic: Negative, except as otherwise mentioned in the history above. Cardiovascular: Negative, except as otherwise mentioned in the history above. Respiratory: Negative, except as otherwise mentioned in the history above. Gastrointestinal: Negative, except as otherwise mentioned in the history above. Genitourinary: Negative, except as otherwise mentioned in the history above. Musculoskeletal: Negative, except as otherwise mentioned in the history above. Neurological: Negative, except as otherwise mentioned in the history above. Psychiatric: Negative, except as otherwise mentioned in the history above. Hematologic/Lymphatic: Negative, except as otherwise mentioned in the history above. Allergic/Immunologic: Negative, except as otherwise mentioned in the history above. PMH Congestive Heart Failure Hypertension COPD/asthma-inhalers/nebulizer at home Back Injury (HNP) Degenerative Joint Chronic Back Pain w/DJD Anxiety Surgical History Tonsillectomy- when a child, does not remember exact age No other surgeries reported Family History Mother: unsure, thinks heart condition Father: d. 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 Responding appropriately but minimally interactive. HEENT: Normocephalic, atraumatic. Anicteric sclerae, moist conjunctivae, and no lid lag. Oral mucosa pink/moist. Neck: Nontender, +JVD. No lymphadenopathy or thyromegaly. Cardiovascular: Regular rate and rhythm with no murmurs, rubs, or gallops appreciated Pulmonary: Clear to auscultation bilaterally with no crackles, wheezes, or rhonchi. Mild respiratory distress, using accessory muscles. Abdomen: Bowel tones present. Soft, nontender, nondistended. No erythema, drainage around drain site. Extremities: Muscle wasting of bilateral upper/lower extremities, no cyanosis or edema. Skin: Pale, warm and dry, no rashes or ulcerations noted. Neurological: No focal deficits appreciated. Awake and responding appropriately but minimally responsive due to pain and respiratory distress. Psychiatric: Difficult to asses due to patient condition. Mood appropriate. Lab and Diagnostics Labs Laboratory Tests Test 07/02/16 10:05 07/02/16 11:00 White Blood Count 18.4th/mm3 (3.8-10.1) Red Blood Count 4.72mil/mm3 (4.40-5.80) Hemoglobin 13.3g/dL (13.8-17.2) Hematocrit 44.2% (41.0-50.0) Mean Corpuscular Volume 93.6fL (81-100) Mean Corpuscular Hemoglobin 28.2pg (27.0-35.0) Mean Corpuscular Hemoglobin Concent 30.1% (32.0-37.0) Red Cell Distribution Width 16.7% (12.3-15.4) Platelet Count 474bil/L (150-400) Neutrophils (%) (Auto) 55.8% (40-74) Lymphocytes (%) (Auto) 26.6% (14-46) Monocytes (%) (Auto) 11.6% (4-12) Eosinophils (%) (Auto) 5.1% (0-5) Basophils (%) (Auto) 0.4% (0-3) Sodium Level 142mEq/L (134-144) Potassium Level 4.2mEq/L (3.5-5.2) Chloride Level 97mEq/L (97-108) Carbon Dioxide Level 24mmol/L (18-29) Blood Urea Nitrogen 14mg/dL (8-27) Creatinine 0.96mg/dL (0.76-1.27) Estimat Glomerular Filtration Rate 82mL/min (>59) Glucose Level 224mg/dL (60-99) Lactic Acid Level 5.2mmol/L (0.4-2.0) Calcium Level 9.3mg/dL (8.5-10.1) Total Bilirubin 0.4mg/dL (0.0-1.2) Aspartate Amino Transf (AST/SGOT) 18U/L (0-50) Alanine Aminotransferase (ALT/SGPT) 9U/L (0-44) Alkaline Phosphatase 86U/L (25-160) Troponin T 0.013ug/L (0.0-0.011) Pro-B-Type Natriuretic Peptide 6274pg/mL (0-376) Total Protein 6.8g/dL (6.4-8.4) Albumin 3.4g/dL (3.4-5.0) Procalcitonin 0.08ng/mL (0.00-0.08) Urine Color Yellow (YELLOW) Urine Appearance Clear (CLEAR,HAZY) Urine pH 6.0 (5.0-8.0) Urine Specific [place] 1.020 (1.003-1.035) Urine Protein 30mg/dL (NEG,TRACE) Urine Glucose (UA) Negativemg/dL (NEGATIVE) Urine Ketones Negativemg/dL (NEGATIVE) Urine Occult Blood Negative (NEGATIVE) Urine Nitrite Negative (NEGATIVE) Urine Bilirubin Negative (NEGATIVE) Urine Urobilinogen Normalmg/dL (NORMAL) Urine Leukocyte Esterase Negative (NEGATIVE) Urine RBC 3-10/hpf (0-2) Urine WBC 0-5/hpf (0-5) Urine Epithelial Cells Occasional/hpf (NONE-MOD) Urine Crystals None seen (NONE SEEN) Urine Bacteria None/hpf (NONE-FEW) Urine Hyaline Casts Occasional/lpf (NONE) Urine Granular Casts None seen (NONE SEEN) Urine Waxy Casts None seen (NONE SEEN) Urine Red Blood Cell Casts None seen (NONE SEEN) Urine White Blood Cell Casts None seen (NONE SEEN) Urine Mucus Present (None Seen) Urine Trichomonas None seen (NONE SEEN) Urine Yeast None (NONE SEEN) Urinalysis Comment None Urine Culture Reflexed Not indicated Microbiology 07/02/16 Blood Culture- pending 07/02/16 Resp viral PCR- pending 07/02/16 Fluid collection gallbladder drain- gram stain/cultures pending X-Rays, CTs and MRIs (07/02/16) X-RAY CHEST ONE VIEW, PORTABLE IMPRESSION: Possible mild pulmonary edema. No focal consolidation. Dictated and approved by: Olivier Pierce M.D. on 07/02/2016 at 10:52 (07/02/16) CT BRAIN WITHOUT CONTRAST IMPRESSION: No acute intracranial abnormalities. Mild periventricular white matter chronic small vessel ischemic change. Dictated and approved by: Khailf Mas M.D. on 07/02/2016 at 18:04 Additional Diagnostics: DateTimeAnalyzed 10:26:00 -_ pH ____7.389 - 7.350 7.450 pCO2 ___45.2__ -mmHg 35.0 45.0 pO2 283 -mmHg 69.0 116 HCO3- ___26.7__ -mmol/L 22.0 26.0 ABE ____1.9__ -mmol/L -2.0 2.0 tHb ___12.3__ -g/dL O2Hb ___93.1__ -% COHb ____5.4__ -% MetHb ____1.0__ -% sO2 ___99.5__ -% 25.0 FIO2 __100.0__ -% Drawn By [facility] - Date/Time Notified____ 10:30:00 -_ Oxygen Device 1 _ROOM AIR - Notified By [facility] - Notified Whom Arin Fraser MT -__ B 752 -mmHg tO2 ___16.8__ -Vol% Assessment & Plan 70 y/o male s/p percutaneous cholecystostomy on 05/20/16 and a history of COPD, CHF, hypertension, chronic back pain with narcotic habituation, and [facility] admission 05/11-05/16 for COPD exacerbation. He presented via EMS in respiratory distress after he was found unresponsive at home. Admitted for further evaluation and management of respiratory arrest and possible COPD and/or CHF exacerbation. 1. Acute on chronic hypoxic respiratory failure. Present on admission. Active -Uncertain etiology. Potentially secondary to narcotic overdose, seizure, COPD or CHF exacerbation. -Pt on chronic opioids for back pain with family noting nearly around the clock use, particularly since cholecystostomy. Current regimen: morphine sulfate ER 30mg TID, oxycodone 5mg q4h. Will need to confirm. -lactic acid (5.2), Troponin 0.013 and proBNP of 6274 -ECG-sinus rhythm, rate 86 and left axis deviation. -CXR without focal consolidation, questionable pulmonary edema. -Supplemental O2, target sats 88-92% -Titrate off Bipap -Tx underlying cause. 2. Acute seizure-like activity. Present on admission. Active. -Uncertain etiology. Potential causes as above. No hx of seizures or similar episode in the past. Pt found unresponsive with seizure like activity, incontinent of bladder and bowel. -CT head w/o contrast ordered, negative for acute process. -Continue to monitor clinically -Lorazepam 0.5mg IV q15min, prn for seizures 3. Possible COPD exacerbation. Present on admission. Active. -Pt is current everyday smoker. [facility] admission 05/11-05/16 for COPD exacerbation. -Clinically does not appear in acute exacerbation. -CXR without focal consolidation -Duonebs q4h prn -Supplemental O2, target sats 88-92% 4. Chronic CHF, systolic. Present on admission. Active -Clinically does not appear in acute exacerbation. -Most recent ECHO 05/12/16- EF 20-25%. CXR as above -EKG- sinus rhythm, rate 86 with LVH and left axis deviation -Troponin 0.013 and proBNP of 6274 -Currently hypotensive. Will hold home lisinopril, carvedilol, furosemide and spironolactone. -Continue aspirin, statin. -I/Os, daily weights 5. Cholecystitis s/p percutaneous cholecystostomy 05/20/16. Present on admission. Active. -Pt presented to [facility] 05/18/16 c/o abd pain and found to have acute cholecystitis. Transferred to [place] for IR drain placement, treated with antibiotics. -WBC 18.4, lactic 5.2 at presentation with repeat 0.8. -Monitor for signs/symptoms of infection. Continue zosyn and vanco empirically. -Likely discontinue vanco, pending MRSA screen. -Cultures of drain fluid, pending. Review of [facility] records, positive for Klebsiella pneumoniae in May. -General surgery consulted from ED, will need to followup. 5. Elevated troponin, unknown chronicity. Present on admission. Active. -Likely secondary to demand ischemia and hypoxia. -Troponin 0.013, will trend 6. Leukocytosis, acute. Present on admission. Active. -Likely stress response. WBC 18.4. -Will monitor for signs/symptoms of infection. 7. Hypertension, chronic. Present on admission. Active. -Currently hypotensive. -Hold home antihypertensives 8. Chronic Back Pain. Present on admission. Presumed stable. -Hold home pain medications. 1-2mg IV morphine q4h prn. Acetaminophen-fever/headache/mild/moderate pain Antiemetics, as needed Bowel regimen, as needed. Disposition: Patient admitted under inpatient status with expected length of stay > 2 midnights for severity of present symptoms, complexities of treatment plan and risk for adverse event. VTE Prophylaxis: Sub-Q Heparin (Unfractionated) Resuscitation Status: CPR: Attempt Resuscitation (discussed and verified with patient) Attending Statement The patient was seen and examined together with Resident/House-staff on 07/02/16 and I agree with the history, exam and plan as outlined in the note above. Demi Miller DO July 02, 2016 14:08 Alonso Stephens July 16, 2016 17:26
[2016-07-02] MEDS ORDERED: Vancomycin Dose per Pharmacist XX SCH (19:00)
--- NOTE | 2016-07-02 19:31 | PCM.ADCARE ---
Advance Care Planning Note Purpose of Encounter: initial visit and goals of care Parties in Attendance: patient, his , patient's son Decisional Capacity: currently on BiPAP but able to answer questions appropriately Subjective: reports back pain Objective: Lung CTA bilat. CV: RRR Neuro: non-focal NAD on BiPAP see h&p for more details Goals of Care Determinations: per family patient had indicated he wishes to be DNR/DNI. His wishes for patient to live to 100 and is not happy with patient's decision to be DNR/DNI but agrees to respect his wishes. Patient's son also agrees for patient to be DNR/DNI but to continue with other interventions to try to prolong his life. Plan: Continue with current care with goal of returning home from hospital CODE STATUS: DNR/DNI Time Spent Adv.Care Plannin min Alonso Stephens July 02, 2016 19:31
--- NOTE | 2016-07-02 19:33 | NUR ---
Breathing Pt breathing improved after administration of Morphine. Oxymask 3 L SPO2 100%, slowly titrating down. Night RN informed. Pt resting comfortably. Care continues. at bedside, staying the night.
--- NOTE | 2016-07-02 19:56 | PCM.CONPHA ---
Subjective Date of Service: July 02, 2016 Requesting Provider: Demi Miller DO Shortness of breath Reason for Pharmacy Consult: Vancomycin Dosing Objective Vital Signs Date Time Temp Pulse Resp B/P Pulse Ox O2 Delivery O2 Flow Rate FiO2 07/02/16 19:03 CPAP/BIPAP 07/02/16 16:52 72 18 99 40 07/02/16 16:15 68 12 100 45 07/02/16 16:00 36.7 69 18 129/74 95 BiPAP 07/02/16 13:23 37.0 67 18 123/76 94 BiPAP 07/02/16 13:01 77 07/02/16 13:00 74 18 132/81 99 50 07/02/16 11:57 74 17 115/64 99 BiPAP 07/02/16 11:44 07/02/16 11:24 88 16 108/58 100 Room Air 07/02/16 11:04 83 20 121/77 100 BiPAP 07/02/16 11:00 50 07/02/16 10:30 86 20 130/69 100 BiPAP 07/02/16 10:25 18 100 100 07/02/16 10:02 36.4 93 16 120/66 100 BiPAP Weight (Kilograms): 69.200 Height (Feet): 5 Height (Inches): 9.00 Test 07/02/16 10:05 07/02/16 11:00 07/02/16 14:28 07/02/16 16:28 White Blood Count 18.4th/mm3 (3.8-10.1) Red Blood Count 4.72mil/mm3 (4.40-5.80) Hemoglobin 13.3g/dL (13.8-17.2) Hematocrit 44.2% (41.0-50.0) Mean Corpuscular Volume 93.6fL (81-100) Mean Corpuscular Hemoglobin 28.2pg (27.0-35.0) Mean Corpuscular Hemoglobin Concent 30.1% (32.0-37.0) Red Cell Distribution Width 16.7% (12.3-15.4) Platelet Count 474bil/L (150-400) Neutrophils (%) (Auto) 55.8% (40-74) Lymphocytes (%) (Auto) 26.6% (14-46) Monocytes (%) (Auto) 11.6% (4-12) Eosinophils (%) (Auto) 5.1% (0-5) Basophils (%) (Auto) 0.4% (0-3) Sodium Level 142mEq/L (134-144) Potassium Level 4.2mEq/L (3.5-5.2) Chloride Level 97mEq/L (97-108) Carbon Dioxide Level 24mmol/L (18-29) Blood Urea Nitrogen 14mg/dL (8-27) Creatinine 0.96mg/dL (0.76-1.27) Estimat Glomerular Filtration Rate 82mL/min (>59) Glucose Level 224mg/dL (60-99) Calcium Level 9.3mg/dL (8.5-10.1) Total Bilirubin 0.4mg/dL (0.0-1.2) Aspartate Amino Transf (AST/SGOT) 18U/L (0-50) Alanine Aminotransferase (ALT/SGPT) 9U/L (0-44) Alkaline Phosphatase 86U/L (25-160) Troponin T 0.013ug/L (0.0-0.011) Pro-B-Type Natriuretic Peptide 6274pg/mL (0-376) Total Protein 6.8g/dL (6.4-8.4) Albumin 3.4g/dL (3.4-5.0) Procalcitonin 0.08ng/mL (0.00-0.08) Urine Color Yellow (YELLOW) Urine Appearance Clear (CLEAR,HAZY) Urine pH 6.0 (5.0-8.0) Urine Specific [place] 1.020 (1.003-1.035) Urine Protein 30mg/dL (NEG,TRACE) Urine Glucose (UA) Negativemg/dL (NEGATIVE) Urine Ketones Negativemg/dL (NEGATIVE) Urine Occult Blood Negative (NEGATIVE) Urine Nitrite Negative (NEGATIVE) Urine Bilirubin Negative (NEGATIVE) Urine Urobilinogen Normalmg/dL (NORMAL) Urine Leukocyte Esterase Negative (NEGATIVE) Urine RBC 3-10/hpf (0-2) Urine WBC 0-5/hpf (0-5) Urine Epithelial Cells Occasional/hpf (NONE-MOD) Urine Crystals None seen (NONE SEEN) Urine Bacteria None/hpf (NONE-FEW) Urine Hyaline Casts Occasional/lpf (NONE) Urine Granular Casts None seen (NONE SEEN) Urine Waxy Casts None seen (NONE SEEN) Urine Red Blood Cell Casts None seen (NONE SEEN) Urine White Blood Cell Casts None seen (NONE SEEN) Urine Mucus Present (None Seen) Urine Trichomonas None seen (NONE SEEN) Urine Yeast None (NONE SEEN) Urinalysis Comment None Urine Culture Reflexed Not indicated Lactic Acid Level 0.8mmol/L (0.4-2.0) Hold Silva Top Tube Received (Received) Assessment/Plan Assessment/Plan Vanco per Rx Indication: Hx PNA, Possible MRSA Goal Trough 15 - 20; Vd 52; eCrCl 66; WBC 18.4 LD 1500mg follow by 750mg q12h; eTrough @ SS 15.7 1st trough level before 4th dose, tomorrow @ 2230 Guero Arrington PharmD July 02, 2016 19:56
--- NOTE | 2016-07-02 21:26 | CONS ---
[address] [address] CONSULTATION REPORT PATIENT: LUCAS SMART : 1945 MR#: [id number] ADMIT: 07/02/2016 JOB ID: [id number] DATE OF SERVICE: 07/02/2016 CHIEF COMPLAINT/IDENTIFICATION: I have been asked by the hospitalist service and emergency department to consult on this 70-year-old man with a cholecystostomy tube. HISTORY OF PRESENT ILLNESS: The patient is 70 years old, has severe COPD, CHF and hypertension with narcotic habituation secondary to chronic back pain, by report. The patient is quite short of breath and a bit obtunded, and the history is obtained from other physicians and the chart. He is admitted following a home respiratory arrest through the emergency department to our ICU. I am asked to consult on him regarding a cholecystostomy tube that was placed, by report, on May 20, now almost six weeks ago up in [place] for reported acute cholecystitis. He was treated with antibiotics until June 02, and there were plans for definitive cholecystectomy sometime in the near future pending cardiology workup which has reportedly not been done. PAST MEDICAL HISTORY: Congestive heart failure, hypertension, COPD, status post tonsillectomy. MEDICATIONS: Per admission history physical/med reconciliation list. ALLERGIES: No known allergies. REVIEW OF SYSTEMS: Not obtained. PHYSICAL EXAMINATION: Cachectic man on BiPAP in respiratory distress, unable to answer questions. Temperature is 37, pulse is 60s and 70s. Blood pressure was recorded at 123/76. Focused abdominal exam reveals a cholecystostomy tube in place with light green bile, roughly 30 cc in the bag. LABORATORY: White count is 18.4, hematocrit is 44. LFTs are normal. Glucose is 224, electrolytes are normal. IMPRESSION/RECOMMENDATIONS: He apparently has a working cholecystostomy tube. At this point, he has been placed on IV Zosyn for reasons that are unclear to me. Although it is difficult to evaluate him clinically, given his absence of tenderness in the right upper quadrant and normal white count, I would not think he needs to be covered for acute cholecystitis. At this point, I would simply leave his cholecystostomy tube to bag drainage and address his primary problem which is his respiratory distress. General Surgery will follow him while he is in the hospital on a daily basis.
[2016-07-02] MEDS: oxyCODONE-Acetamin 5-325 mg Tablet PO PRN (21:40)
[2016-07-02] MEDS: Piperacillin-Tazo 3.375 Gm Inj 3.375 GM in Dextrose 5% Minibag Plus 50 ML IV SCH (22:15)
[2016-07-02] MEDS ORDERED: Vancomycin Inj 750 MG in 0.9% Sodium Chloride 250 ML IV SCH (23:00)
[2016-07-03] VITALS (9 sets, daily range): BP systolic 129–146; BP diastolic 82–94; PULSE 86–100; RESP 16–22; O2SAT 91–95
[2016-07-03] MEDS: Ondansetron 2 mg/mL 2 mL Inj IVPUSH PRN ×2 (00:22→07:52)
[2016-07-03] MEDS: oxyCODONE-Acetamin 5-325 mg Tablet PO PRN ×5 (03:22→22:34)
[2016-07-03 04:30] LABS: BASOPHILS % (AUTO) 0.1 % (0-3); EOSINOPHILS % (AUTO) 0 % (0-5); MONOCYTES % (AUTO) 7.3 % (4-12); Mean Corpuscular Hemoglobin 28.4 pg (27.0-35.0); Mean Corpuscular Volume 90.8 fL (81-100); NEUTROPHILS % (AUTO) 85.8 % (40-74); Platelet Count 390 bil/L (150-400)
[2016-07-03 05:05] LABS: TROPONIN T 0.011 ug/L (0.0-0.011)
[2016-07-03] MEDS: Piperacillin-Tazo 3.375 Gm Inj 3.375 GM in Dextrose 5% Minibag Plus 50 ML IV SCH (05:25)
--- NOTE | 2016-07-03 05:51 | NUR ---
Respiratory/ mentation/ pain sp02 90s on RA overnight. Scheduled morphine given at HS. pt c/o generalized back pain and is very irate with current med regime stating "if you dont fix it i will leave" Night resident paged.order for RN Oxycondone received and administered. Pt sleeping overnight- awakens intermittently PRN Zofran given x1 for nausea/ vomiting with good effect- no further c.o pain
--- NOTE | 2016-07-03 07:53 | PROG NOTE ---
[address] [address] PROGRESS NOTE PATIENT: LUCAS SMART : 1945 MR#: [id number] ADMIT: 07/02/2016 JOB ID: [id number] DATE: 07/03/2016 SUBJECTIVE: The patient is seen in followup for his cholecystostomy tube. He is not complaining of significant abdominal pain or nausea. His main complaint is back pain. He has no shortness of breath and no chest pain. OBJECTIVE: Temperature 36.9, pulse 94, blood pressure 139/84, saturation 93% on room air. In general, he is resting in bed, in no acute distress. Chest: He has coarse breath sounds bilaterally with crackles and wheezes. Heart: Regular rate and rhythm. No murmurs. Abdomen is soft, nondistended, nontender. He has a cholecystostomy tube in the right upper quadrant which is draining bilious fluid. LABORATORIES: White blood cell count 17.5, hematocrit 39.3, platelets 390. Bilirubin 0.5, AST 14, ALT 6, alkaline phosphatase 75. Procalcitonin 0.08. ASSESSMENT AND PLAN: A 70-year-old man with a cholecystostomy tube that was placed in [place] in April. He has a plan with the surgeon there, Dr. Mas, who plans to perform an interval cholecystectomy once he has had a cardiology evaluation. I do not see an indication that this acute episode is secondary to a problem with the cholecystostomy tube, which appears to be functional. Recommend treatment per the medical team, and he can follow up with the surgeon in [place] as previously arranged.
[2016-07-03] MEDS: Heparin 5,000 Unit/mL Inj SUBQ SCH ×2 (07:57→16:58)
--- NOTE | 2016-07-03 07:58 | NUR ---
Pain Pt states he is having 9/10 pain. States Morphine amount is not what he takes at home. Asking for oxycodone at the same time. States he wished he never woke up pain is unbearable. States he takes his home medications oxycodone and morphine at the same time. Administering 0.25 mL Morphine and 5 mg oxycodone. RR 18 SPO2 93% RA HR 96 BP 133/89. Care continues.
[2016-07-03] MEDS ORDERED: Morphine ER 15 mg (MS Contin) Tablet PO SCH ×2 (08:35→20:30)
[2016-07-03] MEDS ORDERED: Naloxone 0.4 mg/mL 10 mL Inj IVPUSH PRN (09:00)
--- NOTE | 2016-07-03 10:15 | NUR ---
Pain reassess 0826 Pt sleeping while family talking in room at time of reassessment. Care continues.
--- NOTE | 2016-07-03 12:04 | NUR ---
Pain Pt states pain is 9/10, states unbearable. Asking for oxycodone and stronger dose of morphine. MD confirmed give MS Contin now. Informed pt MS contin available now instead of morphine. Pt agreeable. Administering 15 mg MS Contin and oxycodone 5 mg. Pt RR 20, HR 100, BP 141/94, oxymask 2 L SPO2 96%. Care continues.
[2016-07-03] MEDS: Albuterol-Ipratropium 3 mL Inhalation Solution NEB PRN ×2 (13:50→21:15)
--- NOTE | 2016-07-03 14:10 | NUR ---
[facility] and [facility] patient is non service connected but patient and holds J[employer]. 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
--- NOTE | 2016-07-03 14:36 | NUR ---
Oxymask/Refuses food/Yelling One hour after administering MS Contin and Oxycodone, pt continues to pull oxymask off, desats to 87%, reminding pt to leave mask on. Pt states he is in too much pain to leave mask on. Pt refusing to eat, states he is in too much pain to eat wants his home medications. Pt yelling at RN that he is in pain. Pt has been given pain medication Q4 since 0800. MD changed medications to accommodate pts continued pain. Pt still stating pain is unbearable at an 8. Encouraged pt RN will notify MD of continued pain. Pt switched to 3 L NC by RT, pt tore off NC once. Reminded pt to keep NC on for oxygen support. SPO2 at 90%. Able to encourage pt to eat one cup of pudding, recommending something in his stomach with [id number]. states pt behavior is not his baseline. MD notified. Care continues.
--- NOTE | 2016-07-03 15:34 | PCM.PNMED ---
Subjective Date of Service July 03, 2016 Subjective Mr Cortes is a 70 y/o male s/p percutaneous cholecystostomy on 05/20/16 with a history of COPD, systolic heart failure, hypertension, chronic back pain with narcotic habituation, and [facility] admission 05/11-05/16 for COPD exacerbation. He presented via EMS in respiratory distress after he was found unresponsive at home. Admitted for further evaluation and management of acute on chronic respiratory failure secondary to possible seizure, narcotic overdose, or exacerbations of COPD and heart failure. Per nursing, patient complaining of 9/10 pain overnight and somewhat combative at times even threatening to leave. Titrated off BiPap. Today he is more alert and complaining of 9/10 pain in his back but maintaining oxygen sats in low to mid 90s on 3L oxymask. He also states that he does not have an appetite and reports mild abdominal pain. He denies chest pain, fever, chills, nausea or vomiting. Exam Vital Signs Vital Sign - Last Date Time Temp Pulse Resp B/P Pulse Ox O2 Delivery O2 Flow Rate FiO2 07/03/16 03:13 36.9 94 18 139/84 93 Room Air 07/02/16 16:52 40 Intake and Output 07/02/16 07/02/16 07/03/16 Cumulative From/Thru 15:00 23:00 07:00 07/02/16 10:02 - 07/03/16 06:25 Intake Total 3000 ml 0 ml 475 ml 3475 ml Output Total 725 ml 350 ml 445 ml 1520 ml Balance 2275 ml -350 ml 30 ml 1955 ml Intake Oral 0 ml 200 ml 200 ml IV Total 3000 ml 275 ml 3275 ml Output Urine Total 725 ml 350 ml 400 ml 1475 ml Drainage Total 45 ml 45 ml Exam General: Elderly, cachectic male who appears older than his stated age, sitting hunched over. In no acute distress. Responding appropriately but minimally interactive. HEENT: Normocephalic, atraumatic. Anicteric sclerae, moist conjunctivae, and no lid lag. Oral mucosa pink/moist. Neck: Nontender, +JVD. No lymphadenopathy or thyromegaly. Cardiovascular: Regular rate and rhythm with no murmurs, rubs, or gallops appreciated Pulmonary: Clear to auscultation bilaterally with no crackles, wheezes, or rhonchi. Normal respiratory effort. Abdomen: Bowel tones present. Soft, nontender, nondistended. No erythema, drainage around drain site. Extremities: Muscle wasting of bilateral upper/lower extremities, no cyanosis or edema. Skin: Pale, warm and dry, no rashes or ulcerations noted. Neurological: No focal deficits appreciated. Awake and responding appropriately but minimally responsive. Psychiatric: Difficult to asses due to patient cooperation. Mood appropriate. IVs and Medications Medications Reviewed: Medications were reviewed in detail Lab and Diagnostics Laboratory Tests Test 07/02/16 10:05 07/02/16 11:00 07/02/16 14:28 07/02/16 16:28 White Blood Count 18.4th/mm3 (3.8-10.1) Red Blood Count 4.72mil/mm3 (4.40-5.80) Hemoglobin 13.3g/dL (13.8-17.2) Hematocrit 44.2% (41.0-50.0) Mean Corpuscular Volume 93.6fL (81-100) Mean Corpuscular Hemoglobin 28.2pg (27.0-35.0) Mean Corpuscular Hemoglobin Concent 30.1% (32.0-37.0) Red Cell Distribution Width 16.7% (12.3-15.4) Platelet Count 474bil/L (150-400) Neutrophils (%) (Auto) 55.8% (40-74) Lymphocytes (%) (Auto) 26.6% (14-46) Monocytes (%) (Auto) 11.6% (4-12) Eosinophils (%) (Auto) 5.1% (0-5) Basophils (%) (Auto) 0.4% (0-3) Sodium Level 142mEq/L (134-144) Potassium Level 4.2mEq/L (3.5-5.2) Chloride Level 97mEq/L (97-108) Carbon Dioxide Level 24mmol/L (18-29) Blood Urea Nitrogen 14mg/dL (8-27) Creatinine 0.96mg/dL (0.76-1.27) Estimat Glomerular Filtration Rate 82mL/min (>59) Glucose Level 224mg/dL (60-99) Lactic Acid Level 5.2mmol/L (0.4-2.0) 0.8mmol/L (0.4-2.0) Calcium Level 9.3mg/dL (8.5-10.1) Total Bilirubin 0.4mg/dL (0.0-1.2) Aspartate Amino Transf (AST/SGOT) 18U/L (0-50) Alanine Aminotransferase (ALT/SGPT) 9U/L (0-44) Alkaline Phosphatase 86U/L (25-160) Troponin T 0.013ug/L (0.0-0.011) Pro-B-Type Natriuretic Peptide 6274pg/mL (0-376) Total Protein 6.8g/dL (6.4-8.4) Albumin 3.4g/dL (3.4-5.0) Procalcitonin 0.08ng/mL (0.00-0.08) Urine Color Yellow (YELLOW) Urine Appearance Clear (CLEAR,HAZY) Urine pH 6.0 (5.0-8.0) Urine Specific [place] 1.020 (1.003-1.035) Urine Protein 30mg/dL (NEG,TRACE) Urine Glucose (UA) Negativemg/dL (NEGATIVE) Urine Ketones Negativemg/dL (NEGATIVE) Urine Occult Blood Negative (NEGATIVE) Urine Nitrite Negative (NEGATIVE) Urine Bilirubin Negative (NEGATIVE) Urine Urobilinogen Normalmg/dL (NORMAL) Urine Leukocyte Esterase Negative (NEGATIVE) Urine RBC 3-10/hpf (0-2) Urine WBC 0-5/hpf (0-5) Urine Epithelial Cells Occasional/hpf (NONE-MOD) Urine Crystals None seen (NONE SEEN) Urine Bacteria None/hpf (NONE-FEW) Urine Hyaline Casts Occasional/lpf (NONE) Urine Granular Casts None seen (NONE SEEN) Urine Waxy Casts None seen (NONE SEEN) Urine Red Blood Cell Casts None seen (NONE SEEN) Urine White Blood Cell Casts None seen (NONE SEEN) Urine Mucus Present (None Seen) Urine Trichomonas None seen (NONE SEEN) Urine Yeast None (NONE SEEN) Urinalysis Comment None Urine Culture Reflexed Not indicated Hold Silva Top Tube Received (Received) Test 07/03/16 03:50 White Blood Count 17.5th/mm3 (3.8-10.1) Red Blood Count 4.33mil/mm3 (4.40-5.80) Hemoglobin 12.3g/dL (13.8-17.2) Hematocrit 39.3% (41.0-50.0) Mean Corpuscular Volume 90.8fL (81-100) Mean Corpuscular Hemoglobin 28.4pg (27.0-35.0) Mean Corpuscular Hemoglobin Concent 31.3% (32.0-37.0) Red Cell Distribution Width 16.4% (12.3-15.4) Platelet Count 390bil/L (150-400) Neutrophils (%) (Auto) 85.8% (40-74) Lymphocytes (%) (Auto) 6.6% (14-46) Monocytes (%) (Auto) 7.3% (4-12) Eosinophils (%) (Auto) 0% (0-5) Basophils (%) (Auto) 0.1% (0-3) Sodium Level 142mEq/L (134-144) Potassium Level 3.8mEq/L (3.5-5.2) Chloride Level 102mEq/L (97-108) Carbon Dioxide Level 22mmol/L (18-29) Blood Urea Nitrogen 13mg/dL (8-27) Creatinine 0.71mg/dL (0.76-1.27) Estimat Glomerular Filtration Rate 116mL/min (>59) Glucose Level 107mg/dL (60-99) Calcium Level 8.8mg/dL (8.5-10.1) Total Bilirubin 0.5mg/dL (0.0-1.2) Aspartate Amino Transf (AST/SGOT) 14U/L (0-50) Alanine Aminotransferase (ALT/SGPT) 6U/L (0-44) Alkaline Phosphatase 75U/L (25-160) Troponin T 0.011ug/L (0.0-0.011) Total Protein 6.2g/dL (6.4-8.4) Albumin 3.0g/dL (3.4-5.0) Result Diagram: 07/03/16 0350 07/03/16 0350 Microbiology 07/02/16 Blood Culture- pending 07/02/16 Resp viral PCR- pending 07/02/16 Fluid collection gallbladder drain- gram stain/cultures pending X-Rays, CTs and MRIs (07/02/16) X-RAY CHEST ONE VIEW, PORTABLE IMPRESSION: Possible mild pulmonary edema. No focal consolidation. Dictated and approved by: Olivier Pierce M.D. on 07/02/2016 at 10:52 (07/02/16) CT BRAIN WITHOUT CONTRAST IMPRESSION: No acute intracranial abnormalities. Mild periventricular white matter chronic small vessel ischemic change. Dictated and approved by: Khalif Mas M.D. on 07/02/2016 at 18:04 Additional Diagnostics DateTimeAnalyzed 10:26:00 -_ pH ____7.389 - 7.350 7.450 pCO2 ___45.2__ -mmHg 35.0 45.0 pO2 283 -mmHg 69.0 116 HCO3- ___26.7__ -mmol/L 22.0 26.0 ABE ____1.9__ -mmol/L -2.0 2.0 tHb ___12.3__ -g/dL O2Hb ___93.1__ -% COHb ____5.4__ -% MetHb ____1.0__ -% sO2 ___99.5__ -% 25.0 FIO2 __100.0__ -% Drawn By [facility] - Date/Time Notified____ 10:30:00 -_ Oxygen Device 1 _ROOM AIR - Notified By [facility] - Notified Whom Arin Fraser MD -__ B 752 -mmHg tO2 ___16.8__ -Vol% Assessment & Plan 70 y/o male s/p percutaneous cholecystostomy on 05/20/16 and a history of COPD, CHF, hypertension, chronic back pain with narcotic habituation, and [facility] admission 05/11-05/16 for COPD exacerbation. He presented via EMS in respiratory distress after he was found unresponsive at home. Admitted for further evaluation and management of respiratory arrest and possible COPD and/or CHF exacerbation. 1. Acute on chronic hypoxic respiratory failure. Present on admission. Active -Likely secondary to narcotic overdose. -Pt on chronic opioids for back pain with family noting nearly around the clock use, particularly since cholecystostomy. Current regimen: morphine sulfate ER 30mg TID, oxycodone 5mg q4h. -lactic acid (5.2) and 0.8 on repeat. -Troponin 0.013 and proBNP of 6274 -ECG-sinus rhythm, rate 86 and left axis deviation. -CXR without focal consolidation, questionable pulmonary edema. -Supplemental O2, target sats 88-92% -Titrate off Bipap 2. Acute seizure-like activity. Present on admission. Active. -Likely secondary to hypoxia due to respiratory depression from narcotics. No hx of seizures or similar episode in the past. -CT head w/o contrast ordered, negative for acute process. -Continue to monitor clinically -Lorazepam 0.5mg IV q15min, prn for seizures 3. Possible COPD exacerbation. Present on admission. Resolved. -Pt is current everyday smoker. [facility] admission 05/11-05/16 for COPD exacerbation. -Clinically does not appear in acute exacerbation. -CXR without focal consolidation -Duonebs q4h prn -Supplemental O2, target sats 88-92% 4. Systolic heart failure, chronic. Present on admission. Presumed stable. -Clinically does not appear in acute exacerbation. -Most recent ECHO 05/12/16- EF 20-25%. CXR as above -EKG- sinus rhythm, rate 86 with LVH and left axis deviation -Troponin 0.013 and proBNP of 6274 -Currently hypotensive. Will hold home lisinopril, carvedilol, furosemide and spironolactone. -Continue aspirin, statin. -I/Os, daily weights 5. Cholecystitis s/p percutaneous cholecystostomy 05/20/16. Present on admission. Active. -Pt presented to [facility] 05/18/16 c/o abd pain and found to have acute cholecystitis. Transferred to [place] for IR drain placement, treated with antibiotics. -WBC 18.4, lactic 5.2 at presentation with repeat 0.8. -Stopped antibiotics no signs/symptoms of infection. -Cultures of drain fluid, pending. Review of [facility] records, positive for Klebsiella pneumoniae in May. -General surgery consulted , recommend followup with Surgeon in [place] as previously arranged. 5. Elevated troponin, unknown chronicity. Present on admission. Improved -Likely secondary to demand ischemia and hypoxia. -Troponin trended down. Most recent 0.011. 6. Leukocytosis, acute. Present on admission. Active. -Likely stress response. WBC 18.4 trending down. Most recent 17.5 -Continue to monitor for signs/symptoms of infection. 7. Hypertension, chronic. Present on admission. Active. -Currently hypotensive. -Hold home antihypertensives 8. Chronic Back Pain. Present on admission. Presumed stable. -Hold home pain medications, due to presumed narcotic overdose. -Home regimen: Morphine sulfate ER 30mg TID, oxycodone 5mg q4h -Morphine sulfate ER 20mg PO BID, oxycodone-acetaminophen 5-325mg q4h prn Acetaminophen-fever/headache/mild/moderate pain Antiemetics, as needed Bowel regimen, as needed. Disposition: Patient admitted under inpatient status with expected length of stay > 2 midnights for severity of present symptoms, complexities of treatment plan and risk for adverse event. VTE Prophylaxis: Sub-Q Heparin (Unfractionated) Resuscitation Status: DNR/DNI:Do Not Resuscitate/Intubate Attending Statement The patient was seen and examined together with Resident/House-staff on 07/03/16 and I agree with the history, exam and plan as outlined in the note above. Demi Miller DO July 03, 2016 07:52 Alonso Stephens July 16, 2016 17:34
--- NOTE | 2016-07-03 15:41 | NUR ---
Social Work: Initial assessment Data & Assessment: Social Work: EMR reviewed. See Initial Assessment. Patient is a 70 y/o male that admitted for resp. failure, sepsis and COPD per H&P. SW met with patient and patient's /DENNIS Cortes at bedside to discuss initial assessment, SW role reviewed, and discharge planning discussed. Patient was in and out of sleep during assessment. Patient does have VA benefits and no LTC insurance. Patient goes to [facility] for primary care needs. Patient's insurance is [employer] [place] Medicare. Patient's re-admit score is five high-risk. Patient lives in a mobile home with family and is independent at baseline. patient does not drive. Patient has history of HH with [facility] and no history at a Long Term Facility. SW provided patient and patient's with a yajaira application for [employer] and also provided patient with the telephone number to schedule an appointment with a automobile mechanic radiator. SW will continue to follow the patient for discharge planning needs. SW provided contact information on [employer]. Plan: SW will continue to follow and assist patient for discharge planning needs. Rayna Leiva LMSW, RODOLFO Addendum: 07/03/16 at 1604 by RAYNA HAMILTON Amended: Links added.
--- NOTE | 2016-07-03 16:51 | NUR ---
Swearing Pt swearing at RN, stating he needs more medication than just the 5 mg oxycodone at 1600. Listened. MD notified. Care continues.
[2016-07-03] MEDS ORDERED: Morphine ER 100 mg (MS Contin) Tablet PO ONE (19:30)
[2016-07-03] MEDS ORDERED: Morphine ER 30 mg (MS Contin) Tablet PO SCH (20:30)
[2016-07-03] MEDS: Morphine ER 15 mg (MS Contin) Tablet PO SCH (20:43)
[2016-07-03] MEDS: Lidocaine Topical 5% Patch TOPICAL SCH (20:43)
[2016-07-03] MEDS ORDERED: Vancomycin Serum Trough XX ONE (22:30)
[2016-07-04] VITALS (10 sets, daily range): BP systolic 123–135; BP diastolic 63–97; PULSE 82–113; RESP 16–20; O2SAT 92–99
[2016-07-04] MEDS: Heparin 5,000 Unit/mL Inj SUBQ SCH ×3 (00:45→16:32)
[2016-07-04] MEDS: oxyCODONE-Acetamin 5-325 mg Tablet PO PRN (04:44)
[2016-07-04 04:57] LABS: BASOPHILS % (AUTO) 0.1 % (0-3); EOSINOPHILS % (AUTO) 0.2 % (0-5); MONOCYTES % (AUTO) 9.3 % (4-12); Mean Corpuscular Hemoglobin 27.9 pg (27.0-35.0); Mean Corpuscular Volume 90.9 fL (81-100); NEUTROPHILS % (AUTO) 80.8 % (40-74); Platelet Count 364 bil/L (150-400)
--- NOTE | 2016-07-04 06:27 | NUR ---
Pain/Sleep Patient reporting 9/10 pain whenever he is awake overnight. Lidocaine patch applied to lower back, pain pills given per orders, and k-pad placed behind patient in bed. Patient noted to be asleep between assessments, and sleeping for several hours at a time if not disturbed for nursing care. Patient reports 9/10 pain at all reassessments despite pain treatments being used. Continue to monitor.
[2016-07-04] MEDS: Morphine ER 15 mg (MS Contin) Tablet PO SCH ×3 (08:17→20:34)
[2016-07-04] MEDS: Lidocaine Topical 5% Patch TOPICAL SCH ×2 (08:17→20:34)
--- NOTE | 2016-07-04 12:59 | PROG NOTE ---
[address] [address] PROGRESS NOTE PATIENT: LUCAS SMART : 1945 MR#: [id number] ADMIT: 07/02/2016 JOB ID: [id number] DATE: 07/04/16 SUBJECTIVE: The patient continues to improve from his respiratory status. He has no significant right upper quadrant tenderness. His cholecystostomy tube put out 155 cc of relatively clear bile yesterday. His white count remains elevated at 17.3, his hematocrit is 37. IMPRESSION AND PLAN: Continued improving respiratory status with functioning cholecystostomy tube. No new recommendations.
--- NOTE | 2016-07-04 13:49 | NUR ---
[facility] signed
--- NOTE | 2016-07-04 14:51 | PCM.PNMED ---
Subjective Date of Service July 04, 2016 Subjective Mr Cortes is a 70-year-old gentleman status post percutaneous cholecystostomy on 05/20/16 with a history of COPD, chronic systolic heart failure, hypertension , chronic back pain with narcotic habituation, and [facility] admission 05/11-05/16 for COPD exacerbation. He presented via EMS in respiratory distress after he was found unresponsive at home. Admitted for further evaluation and management of acute on chronic respiratory failure secondary to possible seizure, narcotic overdose, or exacerbations of COPD and heart failure. Per nursing, patient reporting 9/10 pain when awake overnight. Supplemental oxygen titrated down to 2L nasal cannula. Pain medication increased; oxycodone 10mg q4prn, morphine sulfate 15mg TID with mild improvement in patient's pain. He appears more lethargic this morning but is wakes easily. He reports severe back pain and pain in his ribs/chest wall. He denies fever, chills, nausea or vomiting. Exam Vital Signs Vital Sign - Last Date Time Temp Pulse Resp B/P Pulse Ox O2 Delivery O2 Flow Rate FiO2 07/04/16 11:35 113 Nasal Cannula 1.00 07/04/16 11:17 18 126/97 93 07/04/16 08:00 36.6 07/02/16 16:52 40 Intake and Output 07/03/16 07/03/16 07/04/16 Cumulative From/Thru 15:00 23:00 07:00 07/02/16 10:02 - 07/04/16 05:47 Intake Total 213 ml 418 ml 4106 ml Output Total 610 ml 380 ml 2510 ml Balance -397 ml 38 ml 1596 ml Intake Oral 213 ml 300 ml 713 ml IV Total 118 ml 3393 ml Output Urine Total 500 ml 300 ml 2275 ml Drainage Total 110 ml 80 ml 235 ml Exam General: Lethargic, cachectic male who appears older than his stated age. In no acute distress. Responding appropriately but minimally interactive. HEENT: Normocephalic, atraumatic. Anicteric sclerae, moist conjunctivae, and no lid lag. Oral mucosa pink/moist. Neck: Nontender, +JVD. No lymphadenopathy or thyromegaly. Cardiovascular: Regular rate and rhythm with no murmurs, rubs, or gallops appreciated Pulmonary: Clear to auscultation bilaterally with mild diffuse expiratory wheezing, no crackles, or rhonchi. Normal respiratory effort on 1-2L nasal cannula. Abdomen: Bowel tones present. Soft, nontender, nondistended. No erythema, drainage around drain site. Extremities: Muscle wasting of bilateral upper/lower extremities, no cyanosis or edema. Skin: Pale, warm and dry, no rashes or ulcerations noted. Neurological: No focal deficits appreciated. Awake and responding appropriately. Lethargic but wakes easily. Psychiatric: Difficult to asses due to patient cooperation. Mood appropriate. IVs and Medications Medications Reviewed: Medications were reviewed in detail Lab and Diagnostics Laboratory Tests Test 07/04/16 04:15 07/04/16 04:25 Procalcitonin 0.09ng/mL (0.00-0.08) White Blood Count 17.3th/mm3 (3.8-10.1) Red Blood Count 4.08mil/mm3 (4.40-5.80) Hemoglobin 11.4g/dL (13.8-17.2) Hematocrit 37.1% (41.0-50.0) Mean Corpuscular Volume 90.9fL (81-100) Mean Corpuscular Hemoglobin 27.9pg (27.0-35.0) Mean Corpuscular Hemoglobin Concent 30.7% (32.0-37.0) Red Cell Distribution Width 16.4% (12.3-15.4) Platelet Count 364bil/L (150-400) Neutrophils (%) (Auto) 80.8% (40-74) Lymphocytes (%) (Auto) 9.4% (14-46) Monocytes (%) (Auto) 9.3% (4-12) Eosinophils (%) (Auto) 0.2% (0-5) Basophils (%) (Auto) 0.1% (0-3) Sodium Level 140mEq/L (134-144) Potassium Level 3.9mEq/L (3.5-5.2) Chloride Level 100mEq/L (97-108) Carbon Dioxide Level 23mmol/L (18-29) Blood Urea Nitrogen 14mg/dL (8-27) Creatinine 0.72mg/dL (0.76-1.27) Estimat Glomerular Filtration Rate 114mL/min (>59) Glucose Level 96mg/dL (60-99) Calcium Level 8.8mg/dL (8.5-10.1) Total Bilirubin 0.6mg/dL (0.0-1.2) Aspartate Amino Transf (AST/SGOT) 12U/L (0-50) Alanine Aminotransferase (ALT/SGPT) 5U/L (0-44) Alkaline Phosphatase 66U/L (25-160) Total Protein 5.6g/dL (6.4-8.4) Albumin 3.0g/dL (3.4-5.0) Result Diagram: 07/04/16 0425 07/04/16 0425 Microbiology 07/02/16 Blood Culture- No growth to date. 07/02/16 Resp viral PCR- negative 07/02/16 MRSA screen- negative 07/02/16 Fluid collection gallbladder drain- a mixed aerobic culture of greater than three types of normal bowel leanne. Review of the organisms isolated does not help identify any specific isolate as more significant. X-Rays, CTs and MRIs (07/02/16) X-RAY CHEST ONE VIEW, PORTABLE IMPRESSION: Possible mild pulmonary edema. No focal consolidation. Dictated and approved by: Olivier Pierce M.D. on 07/02/2016 at 10:52 (07/02/16) CT BRAIN WITHOUT CONTRAST IMPRESSION: No acute intracranial abnormalities. Mild periventricular white matter chronic small vessel ischemic change. Dictated and approved by: Khalif Mas M.D. on 07/02/2016 at 18:04 Additional Diagnostics DateTimeAnalyzed 10:26:00 -_ pH ____7.389 - 7.350 7.450 pCO2 ___45.2__ -mmHg 35.0 45.0 pO2 283 -mmHg 69.0 116 HCO3- ___26.7__ -mmol/L 22.0 26.0 ABE ____1.9__ -mmol/L -2.0 2.0 tHb ___12.3__ -g/dL O2Hb ___93.1__ -% COHb ____5.4__ -% MetHb ____1.0__ -% sO2 ___99.5__ -% 25.0 FIO2 __100.0__ -% Drawn By [facility] - Date/Time Notified____ 10:30:00 -_ Oxygen Device 1 _ROOM AIR - Notified By [facility] - Notified Whom Laursen, Arin MD -__ B 752 -mmHg tO2 ___16.8__ -Vol% Assessment & Plan 70-year-old gentleman status post percutaneous cholecystostomy on 05/20/16 with a history of COPD, chronic systolic heart failure, hypertension, chronic back pain with narcotic habituation, and [facility] admission 05/11-05/16 for COPD exacerbation. He presented via EMS in respiratory distress after he was found unresponsive at home. Admitted for further evaluation and management of acute on chronic respiratory failure secondary to possible seizure, narcotic overdose , or exacerbations of COPD and heart failure. 1. Acute on chronic hypoxic respiratory failure. Present on admission. Improving -Likely secondary to narcotic overdose. Patient on chronic opioids for back pain with family noting nearly around the clock use, particularly since cholecystostomy. Current regimen: morphine sulfate ER 30mg TID, oxycodone 5mg q4h. -At presentation: lactic acid (5.2) and 0.8 on repeat. Troponin 0.013 and proBNP of 6274 -ECG-sinus rhythm, rate 86 and left axis deviation. -CXR without focal consolidation, questionable pulmonary edema. -Supplemental O2, target sats 88-92% -Continue to titrate off supplemental oxygen as tolerated 2. Probable seizure, acute. Present on admission. Resolved. -Likely secondary to hypoxia due to respiratory depression from narcotics. No hx of seizures or similar episode in the past. -CT head w/o contrast ordered, negative for acute process. -Continue to monitor clinically -Lorazepam 0.5mg IV q15min, prn for seizures 3. Possible COPD exacerbation. Present on admission. Resolved. -Pt is current everyday smoker. [facility] admission 05/11-05/16 for COPD exacerbation. -Clinically does not appear in acute exacerbation. -CXR without focal consolidation -Duonebs q4h prn -Supplemental O2, target sats 88-92% 4. Systolic heart failure, chronic. Present on admission. Presumed stable. -Clinically does not appear in acute exacerbation. -Most recent ECHO 05/12/16- EF 20-25%. EKG, labs and CXR as above -Currently hypotensive. Will hold home lisinopril, carvedilol, furosemide and spironolactone. -Continue aspirin, statin. -I/Os, daily weights 5. Cholecystitis s/p percutaneous cholecystostomy 05/20/16. Present on admission. Presumed stable. -Pt presented to [facility] 05/18/16 c/o abd pain and found to have acute cholecystitis. Transferred to [place] for IR drain placement, treated with antibiotics. -WBC 18.4, lactic 5.2 at presentation with repeat 0.8. -Stopped antibiotics no signs/symptoms of infection. -Cultures of drain fluid, greater than three types of normal bowel leanne. -General surgery following, recommend followup with Surgeon in [place] as previously arranged. 5. Leukocytosis, acute. Present on admission. Active. -Likely stress response. WBC 18.4 trending down. Most recent 17.3 -Continue to monitor for signs/symptoms of infection. 6. Hypertension, chronic. Present on admission. Active. -Currently hypotensive. -Hold home antihypertensives 7. Chronic Back Pain. Present on admission. Presumed stable. -Hold home pain medications, due to presumed narcotic overdose. -Home regimen: Morphine sulfate ER 30mg TID, oxycodone 5mg q4h -Morphine sulfate ER 15mg PO TID, oxycodone 10mg q4h prn 8. Elevated troponin, unknown chronicity. Present on admission. Resolved. -Likely secondary to demand ischemia and hypoxia. -Troponin trended down. Most recent 0.011. Acetaminophen-fever/headache/mild/moderate pain Antiemetics, as needed Bowel regimen, as needed. Disposition: Patient will likely discharge home in 1-2 days when he is no longer requiring supplemental oxygen. Pain Evaluation: Pain not Controlled VTE Prophylaxis: Sub-Q Heparin (Unfractionated) Resuscitation Status: DNR/DNI:Do Not Resuscitate/Intubate Attending Statement The patient was seen and examined together with Dr. Miller on 07/04/2016 and I agree with the history, exam and plan as outlined in the note above. . Demi Miller DO July 04, 2016 14:51 Graham Vieira MD July 05, 2016 17:08
--- NOTE | 2016-07-04 16:08 | NUR ---
Back Pain/Chest Pain/Resp At beginning of shift patient and spouse talked to me about pain. Stated that his pain was not adequately controlled with pain med regimen ordered. Stated that he takes Oxycodone 10 mg q 4 hours as needed for pain rather than 5 mg Percocet. MD was notified and orders received. This has made patient and spouse very happy. Patient has been able to actually sleep. Patient was restless, unable to get comfortable upon first assessment. Continuing with scheduled MS contin when patient is awake. Patient rates his pain 8-9-10/10 at all times. Patient has also c/o chest discomfort with activity. Stated this is from CPR that was done on him at home. Assisted patient to turn and get comfortable in bed. Patient did get up and walk with PT and sat in chair for a short time. On 3 L 02 with sats at 96% while sleeping. Lungs are decreased t/o.
[2016-07-04] MEDS: Albuterol-Ipratropium 3 mL Inhalation Solution NEB PRN (20:54)
[2016-07-05] VITALS (12 sets, daily range): BP systolic 110–136; BP diastolic 61–92; PULSE 72–102; RESP 16–20; O2SAT 88–98
[2016-07-05] MEDS: Heparin 5,000 Unit/mL Inj SUBQ SCH ×3 (00:53→17:25)
[2016-07-05 03:46] LABS: BASOPHILS % (AUTO) 0.1 % (0-3); EOSINOPHILS % (AUTO) 1.9 % (0-5); MONOCYTES % (AUTO) 9.6 % (4-12); Mean Corpuscular Hemoglobin 27.9 pg (27.0-35.0); Mean Corpuscular Volume 91.6 fL (81-100); NEUTROPHILS % (AUTO) 77.6 % (40-74); Platelet Count 311 bil/L (150-400)
--- NOTE | 2016-07-05 06:04 | NUR ---
Pain/Sleep Patient continues to report 9/10 pain while awake. PRN oxycodone given and patient asleep for most of shift; rouses for nursing care. Pleasant demeanor while awake, converant with nurse and asking questions about care. at bedside overnight. Continue to monitor.
[2016-07-05] MEDS: Albuterol-Ipratropium 3 mL Inhalation Solution NEB PRN ×2 (06:19→22:38)
[2016-07-05] MEDS: Morphine ER 15 mg (MS Contin) Tablet PO SCH ×2 (08:21→14:31)
[2016-07-05] MEDS: Lidocaine Topical 5% Patch TOPICAL SCH (08:24)
--- NOTE | 2016-07-05 11:04 | NUR ---
Social Work: Continued Discharge Planning Data & Assessment: SW met with patient and patient's to discuss discharge plan. SW notified patient and patient's that PT was recommending that the patient discharge to a Residential Facility. Patient declined SNF and stated that he well be ok at home. SW provided patient with HH choice and patient chose [facility]. SW will give [facility] access to the patient's chart and notify [facility] of the referral. SW will continue to follow. Patient will likely discharge home with HH viaa SWAPNAV. Plan: Patient will discharge home with HH when medically stable, SW will continue to follow and and assist patient throughout stay. Aylin Leiva LMSW, ACM
[2016-07-05] MEDS ORDERED: oxyCODONE-Acetamin 10-325 mg Tablet PO ONE (11:45)
--- NOTE | 2016-07-05 13:09 | PROG NOTE ---
[address] [address] PROGRESS NOTE PATIENT: LUCAS SMART : 1945 MR#: [id number] ADMIT: 07/02/2016 JOB ID: [id number] DATE: 07/05/2016 NOTE IS FOLLOWS: Patient continues to improve from his respiratory problems. His main concern is his chronic back pain. His cholecystostomy tube continues to function well. IMPRESSION AND PLAN: No problems with the cholecystostomy tube. General Surgery will sign off this hospitalization as we are not contributing anything to his care at this point. I discussed with his and the plans are to follow up with Dr. Mas in [place] regarding the cholecystostomy tube after discharge.
[2016-07-05] MEDS: oxyCODONE-Acetamin 10-325 mg Tablet PO PRN ×2 (16:16→21:47)
--- NOTE | 2016-07-05 17:51 | PCM.ADCARE ---
Advance Care Planning Note Purpose of Encounter: Goals of care Parties in Attendance: Patient, patient's , and myself Decisional Capacity: Fully decisional Subjective: The patient, Mr. Domingo Cortes, was found sitting up in bed with his at bedside. Patient complained of ongoing and worsening lower back pain, as well as left-sided chest pain where chest compressions were performed by his son prior to admission. Patient reported that his quality of life has been poor for some time and that the last time he can remember being comfortable was at the November 01, 2014 discharge from this hospital. At that time, patient was on MS Contin, 15 mg by mouth, twice daily, as well as oxycodone-acetaminophen, 10- 325 milligrams by mouth, every 6 hours as needed. Opioid dosing has increase then in the setting of worsening chronic back pain. Patient's mobility has been impaired severely. Mr. Cortes thinks that his weight has been stable, but this is significantly lower than it was during most of his adult life. . Objective: Mr. Domingo Cortes is a pleasant 70-year-old gentleman status post percutaneous cholecystostomy on 05/20/16 with a history of COPD, chronic systolic heart failure, hypertension, chronic back pain with narcotic habituation, and [facility] admission from 05/11 2 05/16 for COPD exacerbation. He presented via emergency medical services in respiratory distress after he was found unresponsive at home. Admitted for further evaluation and management of acute on chronic respiratory failure secondary to possible seizure, narcotic overdose , or exacerbations of COPD and heart failure. Patient has largely returned to his usual baseline, although, as above, pain is poorly controlled. Goals of Care Determinations: Patient readily admitted that his quality of life has suffered over the past many months and that the current plan of care is inadequate. Patient's was very tearful throughout our discussion, but realizes that he is failing. She thinks that her may have been working so hard to hang on just to be present for her and their son. I broached the topic of hospice and prospects of better pain management with a focus on symptom relief and quality of life rather than quantity of life. Both the patient and his are agreeable to further discussion with Palliative Care and, possibly, Hospice. Plan: 1. Palliative Care consultation on 07/06/2016 for assistance with pain management 2. In conjunction with Palliative Care consultation, further discussion and consideration of Hospice informational visit 3. Ongoing pain management with oral opioids; risks (including ) and benefits were discussed at length with patient and his CODE STATUS: DO NOT RESUSCITATE/DO NOT INTUBATE Time Spent Adv.Care Plannin minutes Adv. Care Plan Documenation: No changes to documentation at this time Graham Vieira MD July 05, 2016 17:51
--- NOTE | 2016-07-05 18:20 | PCM.PNMED ---
Subjective Date of Service July 05, 2016 Subjective Hospital day 4. Uneventful overnight. Please note that his urine output has decreased somewhat. In addition to that, patient reports that his chronic pain is still suboptimally managed. He denies other complaints. Focused ROS is otherwise negative except as noted above. Exam Vital Signs Vital Sign - Last Date Time Temp Pulse Resp B/P Pulse Ox O2 Delivery O2 Flow Rate FiO2 07/05/16 17:00 80 18 98 Room Air 07/05/16 16:06 36.7 132/69 3.50 07/02/16 16:52 40 Intake and Output 07/04/16 07/04/16 07/05/16 Cumulative From/Thru 15:00 23:00 07:00 07/02/16 10:02 - 07/05/16 06:01 Intake Total 410 ml 20 ml 4536 ml Output Total 460 ml 2970 ml Balance -50 ml 20 ml 1566 ml Intake Oral 400 ml 1113 ml IV Total 10 ml 20 ml 3423 ml Output Urine Total 400 ml 2675 ml Drainage Total 60 ml 295 ml Exam General: Lethargic, cachectic male who appears older than his stated age. In no acute distress, but appears uncomfortable (notes his low back dose (. Responding appropriately but minimally interactive. HEENT: Normocephalic, atraumatic. Anicteric sclerae, moist conjunctivae, and no lid lag. Oral mucosa pink/moist. Neck: Nontender, +JVD. No lymphadenopathy or thyromegaly. Cardiovascular: Regular rate and rhythm with no murmurs, rubs, or gallops appreciated Pulmonary: Clear to auscultation bilaterally with mild diffuse expiratory wheezing, no crackles, or rhonchi. Normal respiratory effort on 1-2L nasal cannula. Abdomen: Bowel tones present. Soft, nontender, nondistended. No erythema, drainage around drain site. Extremities: Muscle wasting of bilateral upper/lower extremities, no cyanosis or edema. Skin: Pale, warm and dry, no rashes or ulcerations noted. Neurological: No focal deficits appreciated. Awake and responding appropriately. Lethargic but wakes easily. Psychiatric: Difficult to asses due to patient cooperation. Mood appropriate. IVs and Medications Medications Reviewed: Medications were reviewed in detail Lab and Diagnostics Laboratory Tests Test 07/05/16 03:30 White Blood Count 12.7th/mm3 (3.8-10.1) Red Blood Count 3.83mil/mm3 (4.40-5.80) Hemoglobin 10.7g/dL (13.8-17.2) Hematocrit 35.1% (41.0-50.0) Mean Corpuscular Volume 91.6fL (81-100) Mean Corpuscular Hemoglobin 27.9pg (27.0-35.0) Mean Corpuscular Hemoglobin Concent 30.5% (32.0-37.0) Red Cell Distribution Width 16.1% (12.3-15.4) Platelet Count 311bil/L (150-400) Neutrophils (%) (Auto) 77.6% (40-74) Lymphocytes (%) (Auto) 10.4% (14-46) Monocytes (%) (Auto) 9.6% (4-12) Eosinophils (%) (Auto) 1.9% (0-5) Basophils (%) (Auto) 0.1% (0-3) Sodium Level 142mEq/L (134-144) Potassium Level 3.7mEq/L (3.5-5.2) Chloride Level 105mEq/L (97-108) Carbon Dioxide Level 28mmol/L (18-29) Blood Urea Nitrogen 11mg/dL (8-27) Creatinine 0.60mg/dL (0.76-1.27) Estimat Glomerular Filtration Rate 141mL/min (>59) Glucose Level 115mg/dL (60-99) Calcium Level 8.6mg/dL (8.5-10.1) Total Bilirubin 0.4mg/dL (0.0-1.2) Aspartate Amino Transf (AST/SGOT) 8U/L (0-50) Alanine Aminotransferase (ALT/SGPT) 5U/L (0-44) Alkaline Phosphatase 57U/L (25-160) Total Protein 5.3g/dL (6.4-8.4) Albumin 3.0g/dL (3.4-5.0) Result Diagram: 07/05/16 0330 07/05/16 0330 Microbiology 07/02/16 Blood Culture- No growth to date. 07/02/16 Resp viral PCR- negative 07/02/16 MRSA screen- negative 07/02/16 Fluid collection gallbladder drain- a mixed aerobic culture of greater than three types of normal bowel leanne. Review of the organisms isolated does not help identify any specific isolate as more significant. X-Rays, CTs and MRIs (07/02/16) X-RAY CHEST ONE VIEW, PORTABLE IMPRESSION: Possible mild pulmonary edema. No focal consolidation. Dictated and approved by: Olivier Pierce M.D. on 07/02/2016 at 10:52 (07/02/16) CT BRAIN WITHOUT CONTRAST IMPRESSION: No acute intracranial abnormalities. Mild periventricular white matter chronic small vessel ischemic change. Dictated and approved by: Khalif Mas M.D. on 07/02/2016 at 18:04 12-lead ECG Sinus with a rate of 86. QTc is somewhat prolonged at 494. He demonstrates 2 sets of ventricular bigeminy. No ST-T wave changes. Assessment & Plan 70-year-old gentleman status post percutaneous cholecystostomy on 05/20/16 with a history of COPD, chronic systolic heart failure, hypertension, chronic back pain with narcotic habituation, and [facility] admission 05/11-05/16 for COPD exacerbation. He presented via EMS in respiratory distress after he was found unresponsive at home. Admitted for further evaluation and management of acute on chronic respiratory failure secondary to possible seizure, narcotic overdose , or exacerbations of COPD and heart failure. Hospital day 4. 1. Acute on chronic hypoxic respiratory failure. Present on admission. Improving as he is now down to 1 L by nasal cannula -Likely secondary to narcotic overdose. Patient on chronic opioids for back pain with family noting nearly around the clock use, particularly since cholecystostomy. Current regimen: morphine sulfate ER 30mg TID, oxycodone 5mg q4h. -At presentation: lactic acid (5.2) and 0.8 on repeat. Troponin 0.013 and proBNP of 6274 -ECG-sinus rhythm, rate 86 and left axis deviation. -CXR without focal consolidation, questionable pulmonary edema. -Supplemental O2, target sats 88-92% -Continue to titrate off supplemental oxygen as tolerated 2. Probable seizure, acute. Present on admission. Resolved. -Likely secondary to hypoxia due to respiratory depression from narcotics. No hx of seizures or similar episode in the past. -CT head w/o contrast ordered, negative for acute process. -Continue to monitor clinically -Lorazepam 0.5mg IV q15min, prn for seizures 3. Possible COPD exacerbation. Present on admission. Resolved. -Pt is current everyday smoker. [facility] admission 05/11-05/16 for COPD exacerbation. -Clinically does not appear in acute exacerbation. -CXR without focal consolidation -Duonebs q4h prn -Supplemental O2, target sats 88-92% 4. Systolic heart failure, chronic. -Clinically does not appear in acute exacerbation. -Most recent ECHO 05/12/16- EF 20-25%. EKG, labs and CXR as above -Currently hypotensive. Will hold home lisinopril, carvedilol, furosemide and spironolactone. -Continue aspirin, statin. -I/Os, daily weights 5. Cholecystitis s/p percutaneous cholecystostomy 05/20/16. -Pt presented to [facility] 05/18/16 c/o abd pain and found to have acute cholecystitis. Transferred to [place] for IR drain placement, treated with antibiotics. -WBC 18.4, lactic 5.2 at presentation with repeat 0.8. -Stopped antibiotics no signs/symptoms of infection. -Cultures of drain fluid, greater than three types of normal bowel leanne. -General surgery following, recommend followup with Surgeon in [place] as previously arranged. 5. Leukocytosis, acute. Present on admission. Improving -Likely stress response. WBC 18.4 at presentation and trending down. -Potentially related to gallbladder disease as noted above -Continue to monitor for signs/symptoms of infection. 6. Hypertension, chronic. -Currently hypotensive. -Hold home antihypertensives 7. Chronic Back Pain. -Hold home pain medications, due to presumed narcotic overdose. -Home regimen: Morphine sulfate ER 30mg TID, oxycodone 5mg q4h -Current regimen: Morphine sulfate ER 30mg PO bid, Percocet 10/325 mg q4h prn 8. Elevated troponin, unknown chronicity. Present on admission. Resolved. -Likely secondary to demand ischemia and hypoxia. -Troponin trended down. Most recent 0.011. 9. Patient Management -Palliative care consult tomorrow was some discussion regarding hospice given the patient's gradual decline over the last year+ Acetaminophen-fever/headache/mild/moderate pain Antiemetics, as needed Bowel regimen, as needed. Patient is admitted under inpatient status with expected length of stay greater than 2 midnights due to severity of presenting symptoms, risk of adverse event, and complexity of treatment plan. Disposition: Patient could potentially discharged tomorrow Pain Evaluation: Adequate Pain Control GI Prophylaxis: Not indicated VTE Prophylaxis: Sub-Q Heparin (Unfractionated) Resuscitation Status: DNR/DNI:Do Not Resuscitate/Intubate Attending Statement The patient was seen and examined together with Dr. Mccurdy on 07/04/2016 and I agree with the history, exam and plan as outlined in the note above. . Horacio Neal DO July 05, 2016 18:20 Graham Vieira MD July 05, 2016 18:48
--- NOTE | 2016-07-05 19:05 | NUR ---
Pain/ambulation/constipation Cardiac: Pt reports aching chest rt CPR performed by son prior to arrival in ED. Tele: SR 70-90 with PVC pairs. Resp: Pt reports mild SOB, SPO2 92-95% on 1L NC, titrated down this AM from 2L. O2 dc'd late afternoon, sats mid 90s all shift. Continuous pulse ox in room for when pt is asleep. GI/: Senna and mirilax given for constipation, pt denies n/v/d Neuro: A&Ox3, REESE, Pt's pain never under 7 this shift, Dr Vieira called, pain meds adjusted for pt comfort, plan is for palliative consult tomorrow. Discussed what palliative care is and explained purpose of controlling symptoms such as pain. Pt and voice understanding.
[2016-07-05] MEDS: Morphine ER 30 mg (MS Contin) Tablet PO SCH (20:46)
[2016-07-06] MEDS: Heparin 5,000 Unit/mL Inj SUBQ SCH ×2 (00:22→08:27)
[2016-07-06] MEDS: oxyCODONE-Acetamin 10-325 mg Tablet PO PRN ×4 (01:50→16:32)
--- NOTE | 2016-07-06 02:29 | NUR ---
pain/family during the day shift pts pain medications were changed for better pain control, pt even agreeing at start of shift his pain was a 6/10 which was good because it is never under a 7/10. pt sound asleep in between assessments and nursing care, woke pt for heprin shot and he requested pain medication, there was another hour until it was due, pt replied that was okay he was just making sure he didn't sleep through one. after a few minutes pt called this RN back into the room to speak to his who he had called on the phone. she stated that Dr. Vieira told them today that he could have as much percocet as he wanted and there were going to take him off the MS cotin, explained that the MS cotin had been changed to 30mg BID and the percocet 10/325mg PO Q4 hours PRN, and there was about 45 minutes until he could have the percocet again. pts kept telling me all these things that were said in the day between them Ezequiel JOEL and Dr. Vieira, tried to explain to pts that I can only relay what I was told, what the order reads and from the notes. she seemed to understand and wanted to make sure right at the 4 hours i would bring in his medications. i agreed to do the best I can. during the time I was on the phone with his the pt kept cussing and becoming angry. Brought in pts percocet and he was still on the phone pt cussing again stating his pain is a 10/10 and he cant sleep, gave pt the medication he stated he was going to keep it for later, reminded pt that if he is in pain 10/10 that this mediation would help better if he took it and that i couldn't let him save it for later, pt taking then throwing the med cup at me. then he handed me the phone and wanted me to speak with the again. she repeated her self about what ezequiel JOEL and Dr. Vieira had said all day. I tried to explain the to pts that I wasn't here in the day so I can only go off what I was told. pt wanting me to wake Dr. Vieira up I told her I was unable to do that and that the medication seemed to be working because the pt was sleeping until I woke him up. she stated the minute his eyes open he is in pain and that I needed to give him pain medications. tried to explain that we cant just give him medications because he opens his eyes that part of healing is being awake and moving. reminded pt that palliative care would be in today to talk to them about better pain control and that she should express her concerns to them. pt is now on the couch refusing to wear the [employer] or give me a pain number. pt falling asleep shortly after that. will cont nursing care.
[2016-07-06 03:24] LABS: BASOPHILS % (AUTO) 0.3 % (0-3); EOSINOPHILS % (AUTO) 4.6 % (0-5); MONOCYTES % (AUTO) 12.3 % (4-12); Mean Corpuscular Hemoglobin 27.9 pg (27.0-35.0); Mean Corpuscular Volume 90.5 fL (81-100); NEUTROPHILS % (AUTO) 63.8 % (40-74)
[2016-07-06 03:35] LABS: Platelet Count 323 bil/L (150-400)
[2016-07-06 03:56] VITALS: BP 117/73; PULSE 71; RESP 20; O2SAT 94
--- NOTE | 2016-07-06 07:19 | NUR ---
refused tele pt sleeping soundly woke up and removed tele, went into put tele back on pt refused asked about pts pain he stated he has been in pain all night and hasn't slept once, which is a false statement.offered pt pain medication he refused stating "i hope i drop and right now" explained to pt I could get him something for pain he refused and said his was on the way to get him then he is going home. informed charge weigher, telegrapher agent and oncoming RN about pt refusing, day RN stating she would report to day MD. Addendum: 07/06/16 at 0957 by MELINDA CISNEROS RN Telemetry Explained the reasons for telemetry monitoring. Pt. agreed to have telemetry leads reapplied. Also offered pt. his SELMA MS Contin. Pt. accepted MS Contin as he was in a great deal of back pain 12/01. He also asked for PRN Percocet 10-325, reported that he had not had any Percocet 10-325 since midnight. PRN Percocet 10-325 given as requested.
[2016-07-06 07:37] VITALS: BP 139/95; PULSE 80; RESP 18; O2SAT 95
[2016-07-06] MEDS: Morphine ER 30 mg (MS Contin) Tablet PO SCH (08:07)
[2016-07-06] MEDS: Lidocaine Topical 5% Patch TOPICAL SCH (08:07)
[2016-07-06 10:08] VITALS: PULSE 61; RESP 16; O2SAT 96
[2016-07-06 11:13] VITALS: PULSE 81
--- NOTE | 2016-07-06 11:32 | NUR ---
Palliative Care Palliative Care received verbal order from Dr Neal 07/06/16 to assist with goals of care and pain management. Patient is a 70 year old man with COPD, chronic systolic heart failure, hypertension and chronic back pain with narcotic habituation. He was recently admitted here 05/11-05/16/16 for COPD exacerbation. Patient was found unresponsive at home and was admitted 07/02/16 for eval and management of acute on chronic respiratory failure. Patient lives at home with /family. Conchita Cortes () [phone], Palliative Care to follow. Alyssa Venegas
[2016-07-06 12:10] VITALS: BP 126/88; PULSE 80; RESP 18; O2SAT 97
--- NOTE | 2016-07-06 13:24 | PCM.CONPAL ---
Date of Service July 06, 2016 Date of Hospital Admission: July 02, 2016 at 12:36 Date of Palliative Consult: July 06, 2016 Requesting Provider: Demi Miller DO Reason Palliative Care Consult: Pain, Goals of Care Discussion Hospital Unit @time of consult: Progressive Care Palliative Care Recommendation Summary of palliative recommendations: -Symptom management (Pain/other) Pain-his biggest complaint. He feels this is suboptimally controlled. He acknowledges he has tried many modalities without success. Reviewed with patient after consultation with PCP Dr. Jo-Will try switching his MS Adrian to methadone starting at 5 mg twice a day-reviewed precautions with this medication including oversedation and dysrhythmias. Reviewed that note change in dosing of this medication can happen without consultation first. Reviewed that 5 mg twice a day as a significant decrease in his baseline morphine dose. I will be in contact in 2 days by phone and we will see him in outpatient consultation 07/13 to review pain management. He is instructed to continue with his oxycodone 10 mg 1/2-1 every 4 hours when necessary. He states he has no idea the amount of this medication he has left at home.. I plan on managing his methadone until pain management is stabilized. He would like to [facility] QTC OK. Will need ECG when dose established Depression-suspect he has a significant depression component. Will try again with mirtazapine starting at 7.5 mg by mouth daily at bedtime-but will postpone this for 48 hours so as not to overlap with methadone and start. If he tolerates this dose would probably increase to 15 mg. -DPOA/Advanced Directives/POLST-DNR/DNI no feeding tube. POLST completed -Family/emotional support-patient identifies tremendous support from both his and his son. He states he puts out much effort not to be a "burden" Patient Goals: Patient's primary goal is to return home hopefully with better pain control for improved independence. 1. Patient wants to be told the truth about his/her illness, even if it is unpleasant. 2. Patient would like to be told prognosis when it can be predicted, to better guide treatment decisions. 3. Patient would choose quality of life over quantity of life, and defines quality as [ ]. 4. Patient would request that comfort care take priority over cognitive/mental confusion. Additional Medical Diagnoses with primary management by Hospitalist team include : CHF- with low EF--will need follow up with cardiology COPD- ongoing smoking. He is well aware of impact. Nonsustained VT-will need to monitor closely with use of methadone Problems: End of Life Preferences DNR/DNI Disposition Home with support of his Resuscitation Status Resuscitation Status: DNR/DNI:Do Not Resuscitate/Intubate POLST Updates/Changes Previous POLST?: No Artificially Admin Nutrition: No Artifical Nutrition by Tube POLST Discussed with: Patient POLST Review Outcome: New Form Completed . Advanced Care Planning Address: POLST Pain: Moderate Symptom management: Dyspnea, Pain Pt History History of Present Illness Mr Cortes is a 70-year-old male with a history of COPD, CHF, hypertension, and chronic back pain with narcotic habituation who presented to the emergency department via EMS in respiratory distress after he was found unresponsive at home. History obtained via chart review and family, due to patient condition. The patient's states that he was unresponsive this morning. She notes seizure like activity and states that he was kicking his legs, waving his arms and that his eyes rolled back. She denies a history of seizures or similar episodes in the past but states that he was incontinent of bladder and bowel. Their son, who lives with them, was also on the scene and called 911. He then initiated CPR and states that he heard bones cracking and forgot to check for a pulse. It is unclear if the patient had a pulse but he reportedly aroused with CPR. When EMS arrived, the patient was reportedly alert but combative and hypoxic. Per the family, patient complained of some abdominal pain last night and has not felt well for 3-4 days. reports chills, decreased appetite, one episode of diarrhea and chronic back pain but otherwise denies associated symptoms. Patient is able to answer some basic yes/no questions and reports back and rib pain as well as shortness of breath but denies chest pain, nausea or vomiting. Of note, patient's states that in the ambulance she thought his face may have looked different. She also reports that when the patient was discharged from [facility] on 05/16/16 she did not think he was ready to go home. The patient presented to the [facility] emergency department 2 days later, this is closer to home, for severe abdominal pain and found to have acute cholecystitis. He was then transferred to [facility] and underwent percutaneous cholecystostomy on 05/20/16. Drain cultures grew Klebsiella pneumoniae resistant only to ampicillin. He completed a course of antibiotics including IV ceftriaxone/Flagyl and discharged with oral ciprofloxacin and flagyl on 06/02/16 with plan for definitive cholecystectomy in 8 weeks. Due to his comorbidities he was to have a cardiology evaluation prior to surgery. Family state that this has not yet been done because it is not covered by the [place]. Palliative Care Consultation: 70 yo with above acute hx with chronic pain from his low back for years. No ppting factor, on chronic narcotics now with a question of overdose but he states he did not change his dosing. He has been on MS ER starting at 15 mg now 30 mg increased from BID to TID all over a period of 2 years. He feels it does nothing for his pain and he declined an offer to increase it further as an OP. He is followed and pain meds managed through the [place] clinic- Dr. Jo. He states the only thing that has consistently worked for him is percocet-5/325 and he takes about 10/day. He will take more 1 day then less the next depending on pain which he also relates to stress. He usually starts his day with 20 mg ( 4 of his 5mg tabs) and then may need more in 2-5 hours depending on pain. He states he very rarely will take one in the middle of the night and tries to muscle through it. He identifies poor sleep due to his pain. States sleeping meds don't help him sleep and if they do he feels he awakens with worse pain and he just feels more than usual.He sleep on a couch due to pain and orthopnea if flat. He does have lorazepam at home but it is a bit unclear how he takes it. He states he has had many consultations including with [facility] neurosurg who told him surg would not help. He has had PT,steroid injections,TENS etc- none of any benefit. He has unsteady gait but has not fallen-uses cane on occasion. He has a walker but doesn't use it. No problem with bowels or bladder. He identifies the pain across his back and can radiate down his legs R>L to his feet/toes. He now has L CP focal and most likely due to rib fx when his son attempted CPR. He is a longtime smoker of at least 1ppd but denies ever using illicit meds and no hx of overuse of ETOH. He states he hasn't had any ETOH for 35 years. He states they have tried antidepressants-the only one he recalls was cymbalta which he took for 2 weeks-felt no change so quit. He felt gabapentin caused nausea and diarrhea, fentanyl patch of no benefit. Weight loss of 50# about 5 years ago- no reason but then stabilized. + SOB with ambulation. +orthopnea/PND, no edema denies anginal sx Past Medical History Significant PMH Noted: PMH Congestive Heart Failure-EF 20-25% with severely dilated LV and mod-severe MR ECHO 04/2016 Hypertension COPD/asthma-inhalers/nebulizer at home Back Injury (HNP) Degenerative Joint Chronic Back Pain w/DJD Anxiety Cholecystitis s/p drain 04/2016 at [facility] Surgical History Tonsillectomy- when a child, does not remember exact age Family History Mother: 80, CVA Father: d. 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 was in [employer] in 1960s Social Support: lives with his of 37yrs and his step son (40yo) Responsive Patient Symptoms Pain (current): Moderate Pain (maximium): Severe *Requires 72 Hour Followup Depression: Mild Anxiety: Mild Anorexia: Mild Shortness of Breath: Moderate Palliative Performance Scale PPS Patient Status: Current PPS Ambulation: Reduced PPS Activity: Unable to do any work PPS Self-Care: Full Self Care PPS Intake: Normal or reduced PPS Conscious Level: Full Performance Scale: 70% ADLs ADL Patient Status: Baseline ADL Ambulation: Reduced ADL Dressing: Full ADL Feeding: Full ADL Hygene/bathing: Full ADL Transfers: Full Allergy Allergies Reviewed: Yes Medications Current Medications: Current Medications Atorvastatin Calcium 20 mg HS PO Last administered on 07/05/16 20:46; Admin Dose 20 MG; Start 07/04/16 at 21:00 Oxycodone/ Acetaminophen 1 tab Q4H PRN PO Last administered on 07/06/16 12:39 ; Admin Dose 1 TAB; Start 07/05/16 at 11:45 Morphine Sulfate 30 mg BID PO Last administered on 07/06/16t 08:07; Admin Dose 30 MG; Start 07/05/16 at 20:30 Scheduled Aspirin (Aspirin) 81 Mg Tablet 81 MG PO DAILY Atorvastatin (Lipitor) 20 Mg Tablet 20 MG PO DAILY Cholecalciferol (Vitamin D3) (Vitamin D) 1,000 Unit Tablet 2,000 UNIT PO DAILY Cyanocobalamin (Vitamin B-12) (Vitamin B-12) 1,000 Mcg Tablet 1,000 MCG PO DAILY Methadone (Methadone) 5 Mg Tablet 5 MG PO BID Prednisone (Deltasone) 20 Mg Tablet 20 MG PO DAILY Scheduled PRN Albuterol Neb Soln (Albuterol Neb Soln) 1.25 Mg/3 Ml Vial.neb 1.25 MG INHALATION Q4H PRN PRN For Shortness of Breath Albuterol Sulfate (Proventil HFA Inhaler) 6.7 Gm Hfa.aer.ad 2 PUFF INH Q4 PRN PRN For Shortness of Breath Ipratropium/Albuterol Sulfate (Iprat-Albut 0.5-3(2.5) mg/3 mL Inhalant Soln) 3 Ml Ampul.neb 3 ML IH Q6 PRN PRN For Shortness of Breath Lorazepam (Lorazepam) 0.5 Mg Tablet 0.5 MG PO Q8H PRN PRN For Anxiety oxyCODONE-Acetaminophen 10-325 mg (oxyCODONE-Acetaminophen 10-325 mg) 1 Each Tablet 1 TABLET PO Q4H PRN PRN For Pain Objective Findings Exam Vital Sign - Last Date Time Temp Pulse Resp B/P Pulse Ox O2 Delivery O2 Flow Rate FiO2 07/06/16 12:10 36.8 80 18 126/88 97 Room Air 07/05/16 16:06 3.50 07/02/16 16:52 40 Intake and Output 07/05/16 07/05/16 07/06/16 Cumulative From/Thru 15:00 23:00 07:00 07/02/16 10:02 - 07/06/16 06:20 Intake Total 400 ml 520 ml 356 ml 5812 ml Output Total 385 ml 355 ml 100 ml 3810 ml Balance 15 ml 165 ml 256 ml 2002 ml Intake Oral 400 ml 520 ml 356 ml 2389 ml IV Total 3423 ml Output Urine Total 350 ml 350 ml 100 ml 3475 ml Drainage Total 35 ml 5 ml 335 ml # Voids 2 2 Objective sitting on side of bed with slumped back and prefers to hold head down conversant and a good historian. OX3 and decisional General: Alert/Oriented x3 HEENT: PERRLA, EOMI, Scleral Anicteric, Mucous Membranes Dry Heart: Regular Rate/Rhythm, Systolic Murmur (barely audible at apical area) Lungs: Clear to Auscultation Abdomen: Bowel Tones x4 Neuro: Cranial Nerve 3-12 Intact, Other (moves out of bed and in bed without assist) Extremities: No Edema Lab/Diagnostics Lab and Imaging results reviewed in detail in EMR. BMP wnl, Alb 3.0, minimal anemia, mild hematuria-may be significant in heavy smoker Patient/Family Conference Members Present Family Members Present patient Medical Team Members Present? [facility] Discussion/Goals of Care Discussion FAMILY UNDERSTANDING OF DISEASE: Patient is surprised by his dx of heart ds but otherwise understands all his other issues. He is decisional and states he has communicated his desires and goals to his family DISEASE PROGRESSION/EVIDENCE OF DECLINE: Many of his symptoms are chronic with possibly some progression in general weakness. He would identify his decline as slow to minimal SYMPTOM BURDEN: He states he is very cautious at trying not to be a burden to his family specifically his GOALS: Wants to live longer but with better pain control. He denies significant anger unless "someone treats me like an idiot" He states he would rather turn and walk than confront but that he is trapped here. HOPES/WORRIES: He hopes with better pain control that he will also have better respiratory control. He does notice that after his dosing of Percocet that he relaxes and feels that he breathes more easily Time spent Total time 50 minutes; >50% face to face with patient and/or family, providing counselling regarding plans and recommendations, and in care coordination with his/her medical teams. POLST completed, code status reviewed CM with consultation with Dr. Vieira and with Dr. Jo I also spent an additional 20 minutes counseling for advanced care planning with the patient/the patients family/the surrogate decision maker. copies to: Fritz Jo MD; Rima Rodriguez MD, Deborah A MD July 06, 2016 13:24
--- NOTE | 2016-07-06 14:47 | PCM.PNMED ---
Subjective Date of Service July 06, 2016 Subjective Mr Cortes is a 70-year-old gentleman status post percutaneous cholecystostomy on 05/20/16 with a history of COPD, chronic systolic heart failure, hypertension , chronic back pain with narcotic habituation, and [facility] admission 05/11-05/16 for COPD exacerbation. He presented via EMS in respiratory distress after he was found unresponsive at home. Admitted for further evaluation and management of acute on chronic respiratory failure secondary to possible seizure, narcotic overdose, or exacerbations of COPD and heart failure. Per nursing, patient initially refused telemetry and was complaining of pain. Otherwise no acute events overnight. This morning patient states that he is doing as best as can be expected. He continues to note severe pain in his back and left-sided chest discomfort. Palliative Care consulted today for pain management and discuss potential for Hospice. Exam Vital Signs Vital Sign - Last Date Time Temp Pulse Resp B/P Pulse Ox O2 Delivery O2 Flow Rate FiO2 07/06/16 07:37 36.1 80 18 139/95 95 Room Air 07/05/16 16:06 3.50 07/02/16 16:52 40 Intake and Output 07/05/16 07/05/16 07/06/16 Cumulative From/Thru 15:00 23:00 07:00 07/02/16 10:02 - 07/06/16 06:20 Intake Total 400 ml 520 ml 356 ml 5812 ml Output Total 385 ml 355 ml 100 ml 3810 ml Balance 15 ml 165 ml 256 ml 2002 ml Intake Oral 400 ml 520 ml 356 ml 2389 ml IV Total 3423 ml Output Urine Total 350 ml 350 ml 100 ml 3475 ml Drainage Total 35 ml 5 ml 335 ml # Voids 2 2 Exam General: Elderly, cachectic male who appears older than his stated age. In no acute distress. Responding appropriately. HEENT: Normocephalic, atraumatic. Anicteric sclerae, moist conjunctivae, and no lid lag. Oral mucosa pink/moist. Neck: Nontender, +JVD. No lymphadenopathy or thyromegaly. Cardiovascular: Regular rate and rhythm with no murmurs, rubs, or gallops appreciated Pulmonary: Clear to auscultation bilaterally with mild diffuse expiratory wheezing, no crackles, or rhonchi. Normal respiratory effort on 1-2L nasal cannula. Abdomen: Bowel tones present. Soft, nontender, nondistended. No erythema, drainage around drain site. Extremities: Muscle wasting of bilateral upper/lower extremities, no cyanosis or edema. Skin: Pale, warm and dry, no rashes or ulcerations noted. Neurological: No focal deficits appreciated. Awake and responding appropriately. Psychiatric: Mood and affect appropriate. Alert and oriented to person, place and time IVs and Medications Medications Reviewed: Medications were reviewed in detail Lab and Diagnostics Laboratory Tests Test 07/06/16 03:00 White Blood Count 9.1th/mm3 (3.8-10.1) Red Blood Count 4.23mil/mm3 (4.40-5.80) Hemoglobin 11.8g/dL (13.8-17.2) Hematocrit 38.3% (41.0-50.0) Mean Corpuscular Volume 90.5fL (81-100) Mean Corpuscular Hemoglobin 27.9pg (27.0-35.0) Mean Corpuscular Hemoglobin Concent 30.8% (32.0-37.0) Red Cell Distribution Width 16.2% (12.3-15.4) Platelet Count 323bil/L (150-400) Neutrophils (%) (Auto) 63.8% (40-74) Lymphocytes (%) (Auto) 18.9% (14-46) Monocytes (%) (Auto) 12.3% (4-12) Eosinophils (%) (Auto) 4.6% (0-5) Basophils (%) (Auto) 0.3% (0-3) Result Diagram: 07/06/16 0300 07/05/16 0330 Microbiology 07/02/16 Blood Culture- No growth to date. 07/02/16 Resp viral PCR- negative 07/02/16 MRSA screen- negative 07/02/16 Fluid collection gallbladder drain- a mixed aerobic culture of greater than three types of normal bowel leanne. Review of the organisms isolated does not help identify any specific isolate as more significant. X-Rays, CTs and MRIs (07/02/16) X-RAY CHEST ONE VIEW, PORTABLE IMPRESSION: Possible mild pulmonary edema. No focal consolidation. Dictated and approved by: Olivier Pierce M.D. on 07/02/2016 at 10:52 (07/02/16) CT BRAIN WITHOUT CONTRAST IMPRESSION: No acute intracranial abnormalities. Mild periventricular white matter chronic small vessel ischemic change. Dictated and approved by: Khalif Mas M.D. on 07/02/2016 at 18:04 12-lead ECG Sinus with a rate of 86. QTc is somewhat prolonged at 494. He demonstrates 2 sets of ventricular bigeminy. No ST-T wave changes. Assessment & Plan 70-year-old gentleman status post percutaneous cholecystostomy on 05/20/16 with a history of COPD, chronic systolic heart failure, hypertension, chronic back pain with narcotic habituation, and [facility] admission 05/11-05/16 for COPD exacerbation. He presented via EMS in respiratory distress after he was found unresponsive at home. Admitted for further evaluation and management of acute on chronic respiratory failure secondary to possible seizure, narcotic overdose , or exacerbations of COPD and heart failure. Acute on chronic hypoxic respiratory failure. Present on admission. Improving -Likely secondary to narcotic overdose. Patient on chronic opioids for back pain with family noting nearly around the clock use, particularly since cholecystostomy. Current regimen: morphine sulfate ER 30mg TID, oxycodone 5mg q4h. -At presentation: lactic acid (5.2) and 0.8 on repeat. Troponin 0.013 and proBNP of 6274 -ECG-sinus rhythm, rate 86 and left axis deviation. -CXR without focal consolidation, questionable pulmonary edema. -Supplemental O2, target sats 88-92% -Continue to titrate off supplemental oxygen as tolerated Probable seizure, acute. Present on admission. Resolved. -Likely secondary to hypoxia due to respiratory depression from narcotics. No hx of seizures or similar episode in the past. -CT head w/o contrast ordered, negative for acute process. -Continue to monitor clinically. No evidence of seizure or seizure like activity here. -Lorazepam 0.5mg IV q15min, prn for seizures Possible COPD exacerbation. Present on admission. Resolved. -Pt is current everyday smoker. [facility] admission 05/11-05/16 for COPD exacerbation. -Clinically does not appear in acute exacerbation. -CXR without focal consolidation -Duonebs q4h prn -Supplemental O2, target sats 88-92% Systolic heart failure, chronic. Present on admission. Presumed stable. -Clinically does not appear in acute exacerbation. -Most recent ECHO 05/12/16- EF 20-25%. EKG, labs and CXR as above -Currently hypotensive. Will hold home lisinopril, carvedilol, furosemide and spironolactone. -Continue aspirin, statin. -I/Os, daily weights Cholecystitis s/p percutaneous cholecystostomy 05/20/16. Present on admission. Presumed stable. -Pt presented to [facility] 05/18/16 c/o abd pain and found to have acute cholecystitis. Transferred to [place] for IR drain placement, treated with antibiotics. -WBC 18.4, lactic 5.2 at presentation with repeat 0.8. -Antibiotics discontinued 07/03, no signs/symptoms of infection. -Cultures of drain fluid, greater than three types of normal bowel leanne. -General surgery consulted, recommend followup with Surgeon in [place] as previously arranged. Leukocytosis, acute. Present on admission. Resolved. -Likely stress response. WBC 18.4 trending down. Most recent 9.1 Hypertension, chronic. Present on admission. Active. -Currently normotensive. -Continue to hold home antihypertensives. Chronic Back Pain. Present on admission. Presumed stable. -Hold home pain medications, due to presumed narcotic overdose. -Home regimen: Morphine sulfate ER 30mg TID, oxycodone 5mg q4h -Morphine sulfate ER 30mg PO BID, oxycodone 10mg q4h prn Elevated troponin, unknown chronicity. Present on admission. Resolved. -Likely secondary to demand ischemia and hypoxia. -Troponin trended down. Most recent 0.011. Goals of Care: Patient reports significant decrease in his quality of life in the last few months. Palliative Care consulted, pain management and possibly Hospice. Family is open to discussing Hospice. Acetaminophen-fever/headache/mild/moderate pain Antiemetics, as needed Bowel regimen, as needed. Disposition: Patient will likely discharge home in 1-2 days when he is no longer requiring supplemental oxygen. Possibility for Hospice Informational visit. GI Prophylaxis: Not indicated VTE Prophylaxis: Sub-Q Heparin (Unfractionated) Resuscitation Status: DNR/DNI:Do Not Resuscitate/Intubate Attending Statement The patient was seen and examined together with Dr. Miller on 07/06/2016 and I agree with the history, exam and plan as outlined in the note above. . Demi Miller DO July 06, 2016 09:56 Graham Vieira MD July 06, 2016 16:29
--- NOTE | 2016-07-06 14:58 | NUR ---
NUTRITION ASSESSMENT Assess: 70 YO M admitted with respiratory failure, COPD. Palliative consulted. Pt with poor PO intake X 4 days. PMHX: CHF, HTN, COPD, asthma, DJD, anxiety, cholecystitis. DIET: General. PO intake refusal. LABS: (07/05): Cr 0.60, Glu 115, Alb 3.0 MEDICATIONS: Reviewed. Senna, Miralax. GI: No BM noted. SKIN: No issues noted. ANTHROPOMETRICS: Wt 61.9 kg, BMI 20.2 kg/m2, Admit wt: 69.2 kg. ESTIMATED NEEDS: COPD Calories: 8612-0807 kcal/day (30-35 kcal/kg BW) Protein: 74-93 g/day (1.2-1.5 g/kg BW) NUTRITION DIAGNOSIS: 1) Inadequate oral intake related to decreased ability to consume sufficient energy as evidenced by poor PO intake X 4 days. INTERVENTION: 1) Will add nutrition supplements to encourage adequate nutrition. MONITOR/EVALUATE: PO intake, labs, POC, GI/nutrition status. Follow per moderate nutrition risk guidelines.
--- NOTE | 2016-07-06 15:09 | PCM.DIMED ---
Demi Miller DO 07/06/16 1509: Discharge Instructions Date of Service July 06, 2016 Dates of Hospitalization July 02, 2016 at 12:36 Discharge Diagnosis Discharge Diagnosis -Respiratory arrest -Chronic COPD -Congestive heart failure -Gallbladder infection with gallbladder drain -High blood pressure -Chronic back pain Medication Instructions Some changes were made to your medications during this hospital stay and are listed below. STOP the taking the Morphine sulfate (MS Contine). This is being replaced with Methadone 5mg. Take one tablet twice a day as directed. STOP taking the medications until you are seen by your primary care physician, who will likely adjust these medications. -Amlodipine -Carvedilol -Lisinopril -Spironolactone -Morphine sulfate -Potassium chloride Diet Heart Healthy Activity Other (Activity as tolerated. ) Call your provider Other (If you develop new or concerning symptoms contact your primary care provider. ) Patient Instructions Followup with Dr. Anabel Dhaliwal as scheduled on Wednesday July 13, 2016 at 1:30pm. . Follow-up Provider: Anabel Dhaliwal MD Follow-up with PCP in: 1 week [facility] Follow-up in: 1 week Graham Vieira MD 07/06/16 1630: Discharge Instructions Attending's Statement The patient was seen and examined together with Dr. Miller on 07/06/2016 and I agree with the history, exam and plan as outlined in the note above. . Demi Miller DO July 06, 2016 15:09 Graham Vieira MD July 06, 2016 16:30
[2016-07-06] MEDS ORDERED: OXYC-466 PO ×2 (15:16→15:25)
[2016-07-06] MEDS ORDERED: METH5TAB3 PO (15:16)
--- NOTE | 2016-07-06 16:14 | NUR ---
Social Work Note: Discharge Data& Assessment: EMR reviewed. Per pt is medically ready to discharge home via POV with [facility] PT and RN to follow. Domingo Cortes is a 70 year old male admitted on for respiratory failure and sepsis. Per pt is medically improved and ready to discharge home. DAVON met with pt at bedside to confirm discharge plan and assess for any unmet needs. Pt confirmed plan to discharge home with home health services. SW also spoke with pt son via phone call per pt request and confirmed pt son and pt will be here around 5:00p.m. to transport pt home. Pt and pt family deny any other needs. SW notified [facility] of pt discharge and faxed signed F2F to home health agency. RN, pt and pt family all updated and agreeable to plan. No other discharge needs identified. Plan: Per pt is medically ready to discharge home via POV with [facility] PT and RN to follow. RN, pt and pt family all updated and agreeable to plan. No other discharge needs identified. JOHN Brandon
[2016-07-06 16:34] VITALS: BP 127/84; PULSE 77; RESP 18; O2SAT 98
--- NOTE | 2016-07-06 20:25 | PCM.DC.MED ---
Discharge Summary Date of Service July 06, 2016 Dates of Hospitalization Date of Hospital Admission July 02, 2016 at 12:36 Date of Discharge: July 06, 2016 Providers: Admitting Physician: Alonso Stephens [facility] Attending Physician: Dayne Jordan MD Diagnosis at Time of Discharge Diagnosis at Time of Discharge Acute on chronic hypoxic respiratory failure. Present on admission. Improving Probable seizure, acute. Present on admission. Resolved. COPD, chronic. Present on admission. Resolved. Systolic heart failure, chronic. Present on admission. Presumed stable. Cholecystitis s/p percutaneous cholecystostomy 05/20/16. Present on admission. Presumed stable. Hypertension, chronic. Present on admission. Stable. Chronic Back Pain. Present on admission. Presumed stable. Elevated troponin, unknown chronicity. Present on admission. Resolved. Consultations PALLIATIVE CARE Procedures XRay, CTs & MRIs (07/02/16) X-RAY CHEST ONE VIEW, PORTABLE IMPRESSION: Possible mild pulmonary edema. No focal consolidation. Dictated and approved by: Olivier Pierce M.D. on 07/02/2016 at 10:52 (07/02/16) CT BRAIN WITHOUT CONTRAST IMPRESSION: No acute intracranial abnormalities. Mild periventricular white matter chronic small vessel ischemic change. Dictated and approved by: Khalif Mas M.D. on 07/02/2016 at 18:04 . ECG 12 Lead Sinus with a rate of 86. QTc is somewhat prolonged at 494. He demonstrates 2 sets of ventricular bigeminy. No ST-T wave changes. . Brief History Per admission history and physical on July 02, 2016. Cesar Pérez DO Mr Cortes is a 70-year-old male with a history of COPD, CHF, hypertension, and chronic back pain with narcotic habituation who presented to the emergency department via EMS in respiratory distress after he was found unresponsive at home. History obtained via chart review and family, due to patient condition. The patient's states that he was unresponsive this morning. She notes seizure like activity and states that he was kicking his legs, waving his arms and that his eyes rolled back. She denies a history of seizures or similar episodes in the past but states that he was incontinent of bladder and bowel. Their son, who lives with them, was also on the scene and called 911. He then initiated CPR and states that he heard bones cracking and forgot to check for a pulse. It is unclear if the patient had a pulse but he reportedly aroused with CPR. When EMS arrived, the patient was reportedly alert but combative and hypoxic. Per the family, patient complained of some abdominal pain last night and has not felt well for 3-4 days. reports chills, decreased appetite, one episode of diarrhea and chronic back pain but otherwise denies associated symptoms. Patient is able to answer some basic yes/no questions and reports back and rib pain as well as shortness of breath but denies chest pain, nausea or vomiting. Of note, patient's states that in the ambulance she thought his face may have looked different. She also reports that when the patient was discharged from [facility] on 05/16/16 she did not think he was ready to go home. The patient presented to the [facility] emergency department 2 days later, this is closer to home, for severe abdominal pain and found to have acute cholecystitis. He was then transferred to [place] and underwent percutaneous cholecystostomy on 05/20/16. Drain cultures grew Klebsiella pneumoniae resistant only to ampicillin. He completed a course of antibiotics including IV ceftriaxone/Flagyl and discharged with oral ciprofloxacin and flagyl on 06/02/16 with plan for definitive cholecystectomy in 8 weeks. Due to his comorbidities he was to have a cardiology evaluation prior to surgery. Family state that this has not yet been done because it is not covered by the [employer]. In the ED: Vitals 36.4, BP 115/64, 74, 17-20, 99% on BiPap 50%. Labs significant for a leukocytosis (18.4), elevated lactic acid (5.2), elevated troponin 0.013 and proBNP of 6274 as well as hyperglycemia (224). ECG showing normal sinus rhythm, rate 86 with LVH with interventricular conduction delay and left axis deviation. Chest xray without focal consolidation and mild pulmonary edema. . Hospital Course Mr. Cortes is a 70-year-old gentleman status post percutaneous cholecystostomy on 05/20/16 with a history of COPD, chronic systolic heart failure, hypertension , chronic back pain with narcotic habituation, and [facility] admission 05/11-05/16 for COPD exacerbation. He presented via EMS in respiratory distress after he was found unresponsive at home and subsequently admitted for further evaluation and management of acute on chronic respiratory failure secondary to possible seizure, narcotic overdose, or exacerbations of COPD and heart failure. Acute on chronic hypoxic respiratory failure. Present on admission. Treated/ Resolved. -Likely secondary to narcotic overdose. Patient on chronic opioids for back pain with family noting nearly around the clock use, particularly since cholecystostomy. Outpatient regimen at presentation: morphine sulfate ER 30mg TID, oxycodone 5mg q4h. -On admission, patient's lactic acid was elevated at 5.2 but resolved quickly with repeat a few hours later just 0.8. Troponin was also mildly elevated at 0.013 and trended down. Additionally, proBNP was elevated at 6274. -ECG showed sinus rhythm with rate of 86 and left axis deviation. -Chest xray was without focal consolidation and showed questionable pulmonary edema. -Patient was admitted to the [facility] on BiPap and titrated off BiPap later that evening. He continued to require supplemental oxygen, oxygen sats were maintained between 88-92% due to patient's COPD. -He was titrated off as tolerated and not requiring supplemental O2 at time of discharge. Probable seizure, acute. Present on admission. Resolved. -Likely secondary to hypoxia due to respiratory depression from narcotics. Patient has no known history of seizures or similar episode in the past. -A CT head without contrast was negative for acute process. -Patient was monitored clinically and showed no evidence of seizure or seizure like activity. Possible COPD exacerbation. Present on admission. Resolved. -Clinically, patient did not appear in acute exacerbation. He is a current everyday smoker and was admitted here 05/11-05/16 for COPD exacerbation. -Chest xray was without focal consolidation or acute process. -Patient received Duonebs every four hours as needed and supplemental oxygen as above. Systolic heart failure, chronic. Present on admission. Presumed stable. -Clinically, patient did not appear in acute exacerbation. -Most recent ECHO on 05/12/16 showed an- EF of 20-25%. EKG, labs and CXR as above -Patient was hypotensive at presentation and his home lisinopril, carvedilol, furosemide and spironolactone were held. He remained slightly hypotensive to normotensive throughout his stay and medications held. -Advised patient to followup with his primary care physician to review medications and check his blood pressure. -Patient was continued on daily aspirin and statin. -Daily weights and I/Os were monitored. Cholecystitis s/p percutaneous cholecystostomy 05/20/16. Present on admission. Presumed stable. -Patient presented to [facility] on 05/18/16 complaining of abdominal pain and found to have acute cholecystitis. He was then transferred to [place] for IR drain placement, due to his multiple comorbidities, and treated with antibiotics. -WBC 18.4, lactic 5.2 at presentation with repeat 0.8. -There was no evidence of infection. General surgery evaluated the patient and recommended followup with Surgeon in [place] as previously arranged, no acute intervention necessary. -Culture of the drain fluid, grew greater than three types of normal bowel leanne and antibiotics were discontinued on 07/03. Leukocytosis, acute. Present on admission. Resolved. -Likely stress response. -WBC 18.4 and trended down. Hypertension, chronic. Present on admission. Active. -Patient remained normotensive and was slightly hypotensive at times. -Antihypertensives held, as above. -Will need close followup in outpatient setting. Chronic Back Pain. Present on admission. Presumed stable. -Patient's home pain medications were held on admission due to presumed narcotic overdose. 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 -Patient received: Morphine sulfate ER 30mg PO BID, oxycodone 10mg q4h prn and was discharged with script for Methadone 5mg po BID (to replace morphine sulfate ) and oxycodone 10mg q4h prn. -Patient is to followup with Dr. Dhaliwal on July 13, 2016 at 1:30pm. Elevated troponin, unknown chronicity. Present on admission. Resolved. -Likely secondary to demand ischemia and hypoxia. -Troponin trended down. Exam Vital Signs (Last) Date Time Temp Pulse Resp B/P Pulse Ox O2 Delivery O2 Flow Rate FiO2 07/06/16 13:53 Room Air 07/06/16 12:10 36.8 80 18 126/88 97 07/05/16 16:06 3.50 07/02/16 16:52 40 Exam General: Elderly, cachectic male who appears older than his stated age. In no acute distress. Responding appropriately. HEENT: Normocephalic, atraumatic. Anicteric sclerae, moist conjunctivae, and no lid lag. Oral mucosa pink/moist. Neck: Nontender, +JVD. No lymphadenopathy or thyromegaly. Cardiovascular: Regular rate and rhythm with no murmurs, rubs, or gallops appreciated Pulmonary: Clear to auscultation bilaterally with mild diffuse expiratory wheezing, no crackles, or rhonchi. Normal respiratory effort Abdomen: Bowel tones present. Soft, nontender, nondistended. No erythema, drainage around drain site. Extremities: Muscle wasting of bilateral upper/lower extremities, no cyanosis or edema. Skin: Pale, warm and dry, no rashes or ulcerations noted. Neurological: No focal deficits appreciated. Awake and responding appropriately. Psychiatric: Mood and affect appropriate. Alert and oriented to person, place and time Test 07/02/16 10:05 07/02/16 11:00 07/02/16 14:28 07/02/16 16:28 Pro-B-Type Natriuretic Peptide 6274pg/mL (0-376) Urine Color Yellow (YELLOW) Urine Appearance Clear (CLEAR,HAZY) Urine pH 6.0 (5.0-8.0) Urine Specific [place] 1.020 (1.003-1.035) Urine Protein 30mg/dL (NEG,TRACE) Urine Glucose (UA) Negativemg/dL (NEGATIVE) Urine Ketones Negativemg/dL (NEGATIVE) Urine Occult Blood Negative (NEGATIVE) Urine Nitrite Negative (NEGATIVE) Urine Bilirubin Negative (NEGATIVE) Urine Urobilinogen Normalmg/dL (NORMAL) Urine Leukocyte Esterase Negative (NEGATIVE) Urine RBC 3-10/hpf (0-2) Urine WBC 0-5/hpf (0-5) Urine Epithelial Cells Occasional/hpf (NONE-MOD) Urine Crystals None seen (NONE SEEN) Urine Bacteria None/hpf (NONE-FEW) Urine Hyaline Casts Occasional/lpf (NONE) Urine Granular Casts None seen (NONE SEEN) Urine Waxy Casts None seen (NONE SEEN) Urine Red Blood Cell Casts None seen (NONE SEEN) Urine White Blood Cell Casts None seen (NONE SEEN) Urine Mucus Present (None Seen) Urine Trichomonas None seen (NONE SEEN) Urine Yeast None (NONE SEEN) Urinalysis Comment None Urine Culture Reflexed Not indicated Lactic Acid Level 0.8mmol/L (0.4-2.0) Hold Silva Top Tube Received (Received) Test 07/03/16 03:50 07/04/16 04:15 07/05/16 03:30 07/06/16 03:00 Troponin T 0.011ug/L (0.0-0.011) Procalcitonin 0.09ng/mL (0.00-0.08) Sodium Level 142mEq/L (134-144) Potassium Level 3.7mEq/L (3.5-5.2) Chloride Level 105mEq/L (97-108) Carbon Dioxide Level 28mmol/L (18-29) Blood Urea Nitrogen 11mg/dL (8-27) Creatinine 0.60mg/dL (0.76-1.27) Estimat Glomerular Filtration Rate 141mL/min (>59) Glucose Level 115mg/dL (60-99) Calcium Level 8.6mg/dL (8.5-10.1) Total Bilirubin 0.4mg/dL (0.0-1.2) Aspartate Amino Transf (AST/SGOT) 8U/L (0-50) Alanine Aminotransferase (ALT/SGPT) 5U/L (0-44) Alkaline Phosphatase 57U/L (25-160) Total Protein 5.3g/dL (6.4-8.4) Albumin 3.0g/dL (3.4-5.0) White Blood Count 9.1th/mm3 (3.8-10.1) Red Blood Count 4.23mil/mm3 (4.40-5.80) Hemoglobin 11.8g/dL (13.8-17.2) Hematocrit 38.3% (41.0-50.0) Mean Corpuscular Volume 90.5fL (81-100) Mean Corpuscular Hemoglobin 27.9pg (27.0-35.0) Mean Corpuscular Hemoglobin Concent 30.8% (32.0-37.0) Red Cell Distribution Width 16.2% (12.3-15.4) Platelet Count 323bil/L (150-400) Neutrophils (%) (Auto) 63.8% (40-74) Lymphocytes (%) (Auto) 18.9% (14-46) Monocytes (%) (Auto) 12.3% (4-12) Eosinophils (%) (Auto) 4.6% (0-5) Basophils (%) (Auto) 0.3% (0-3) Microbiology Results 07/02/16 Blood Culture- No growth to date. 07/02/16 Resp viral PCR- negative 07/02/16 MRSA screen- negative 07/02/16 Fluid collection gallbladder drain- a mixed aerobic culture of greater than three types of normal bowel leanne. Review of the organisms isolated does not help identify any specific isolate as more significant. Discharge Medications Discharge Medications Aspirin (Aspirin) 81 Mg Tablet 81 MG PO DAILY (Reported) Atorvastatin (Lipitor) 20 Mg Tablet 20 MG PO DAILY (Reported) Cholecalciferol (Vitamin D3) (Vitamin D) 1,000 Unit Tablet 2,000 UNIT PO DAILY ( Reported) Cyanocobalamin (Vitamin B-12) (Vitamin B-12) 1,000 Mcg Tablet 1,000 MCG PO DAILY (Reported) Methadone (Methadone) 5 Mg Tablet 5 MG PO BID Prescribed by: CESAR PÉREZ DO Prednisone (Deltasone) 20 Mg Tablet 20 MG PO DAILY Prescribed by: PETER RODRIGUEZ MD As needed Albuterol Neb Soln (Albuterol Neb Soln) 1.25 Mg/3 Ml Vial.neb 1.25 MG INHALATION Q4H PRN PRN For Shortness of Breath Prescribed by: BRENDA WESTON MD Albuterol Sulfate (Proventil HFA Inhaler) 6.7 Gm Hfa.aer.ad 2 PUFF INH Q4 PRN PRN For Shortness of Breath (Reported) Ipratropium/Albuterol Sulfate (Iprat-Albut 0.5-3(2.5) mg/3 mL Inhalant Soln) 3 Ml Ampul.neb 3 ML IH Q6 PRN PRN For Shortness of Breath (Reported) Lorazepam (Lorazepam) 0.5 Mg Tablet 0.5 MG PO Q8H PRN PRN For Anxiety (Reported ) oxyCODONE-Acetaminophen 10-325 mg (oxyCODONE-Acetaminophen 10-325 mg) 1 Each Tablet 1 TABLET PO Q4H PRN PRN For Pain Prescribed by: CESAR PÉREZ DO Additional med instructions Some changes were made to your medications during this hospital stay and are listed below. STOP the taking the Morphine sulfate (MS Contine). This is being replaced with Methadone 5mg. Take one tablet twice a day as directed. STOP taking the medications until you are seen by your primary care physician, who will likely adjust these medications. -Amlodipine -Carvedilol -Lisinopril -Spironolactone -Morphine sulfate -Potassium chloride Followup Plan Discharge Diet: Heart Healthy Discharge Activity: Other (Activity as tolerated. ) Patient Instructions Followup with Dr. Anabel Dhaliwal as scheduled on Wednesday July 13, 2016 at 1:30pm. . Follow-up Provider: Anabel Dhaliwal MD Follow-up with PCP in: 1 week Provider: ALLEN MANNY,[facility] Follow-up in: 1 week Time spent Greater than 30 minutes was spent in preparation of discharge with greater than 50% of that time dedicated to patient counseling and coordination of care. . Attending Statement The patient was seen and examined together with Dr. Pérez on 07/06/2016 and I agree with the history, exam and plan as outlined in the note above. . copies to: [facility] Cesar Pérez DO July 06, 2016 15:26 Graham Vieira MD July 07, 2016 16:15
--- NOTE | 2016-07-08 16:32 | NUR ---
Social Work Note: Post Discharge Update SW received phone call from [facility] explaining that they will not be able to open services with pt due to location of home and referral is deferred to [facility]. SW spoke with Aisha HAWKINS who explained pt had been open with their services prior to admission. SW spoke with pt son/caregiver who is agreeable to [facility]WKINS and notified of change of plan. Aisha Liaison picked up F2F and orders. No other discharge needs identified. JOHN Brandon
== END 2016-07-06 18:00 | disposition home health service (06) | DRG 189 ==
LOC: SED 09:58 → PCC 12:36
PROVIDERS: ADMIT Internal Medicine; ATTEND Surgery
PROC: 5A09358 Assistance with Respiratory Ventilation, Less than 24 Consecutive Hours, Intermittent Positive Airway Pressure (ICD-10-PCS; principal; 2016-07-02)
PROC: 4A033R1 Measurement of Arterial Saturation, Peripheral, Percutaneous Approach (ICD-10-PCS; 2016-07-02)
DX: J96.21 Acute and chronic respiratory failure with hypoxia (principal); J44.1 Chronic obstructive pulmonary disease with (acute) exacerbation; I50.22 Chronic systolic (congestive) heart failure; I24.8 Other forms of acute ischemic heart disease; F19.20 Other psychoactive substance dependence, uncomplicated; Z79.82 Long term (current) use of aspirin; Z79.52 Long term (current) use of systemic steroids; F17.210 Nicotine dependence, cigarettes, uncomplicated; G40.909 Epilepsy, unspecified, not intractable, without status epilepticus; K81.9 Cholecystitis, unspecified; M54.9 Dorsalgia, unspecified; Z66 Do not resuscitate; Z51.5 Encounter for palliative care; T40.601A Poisoning by unspecified narcotics, accidental (unintentional), initial encounter; Z90.49 Acquired absence of other specified parts of digestive tract; I10 Essential (primary) hypertension

== ENCOUNTER 2016-08-09 20:30 | Emergency (ER) | payer MEDICARE ==
[~2016-08-09] VITALS: Ht 182.9 cm; Wt 59.1 kg
[~2016-08-09 20:30] MED LIST changes: -AMLO10TA3 PO; -ATEN50TA PO; +ATOR20TA PO; -FURO40TA4 PO; -LISI30TA5 PO; +METH5TAB3 PO; -MORP-33 PO; +OXYC-466 PO; -OXYC-474 PO; -POTA10CA42 PO
[2016-08-09 20:35] VITALS: BP 116/93; PULSE 87; RESP 13; O2SAT 97
--- NOTE | 2016-08-09 20:48 | ED.REPORT ---
HPI-General Illness Date of Service Aug 09, 2016 ED Provider: Demetrio Sales MD A 70 year old male with a history of hypertension, asthma, COPD, CHF and a suprapubic bile drain presents to the ED with weakness that began 3 ago. The patient's reports that he has been experiencing worsening fatigue, productive cough and SOB for the past few days. His symptoms became increasingly worse this evening while the patient was attending a buffet. He was recently admitted for respiratory distress on 07/02 and was discharged in good condition after 4 days. Patient is unsure why his symptoms may have occurred. denies recent fever or chills. Nursing Notes Stated Complaint: SOB Chief Complaint: General Complaint Nursing Notes Reviewed: Yes Allergies: Coded Allergies: No Known Allergies (Verified Allergy, Unknown, 08/04/15) Scheduled Aspirin (Aspirin) 81 Mg Tablet 81 MG PO DAILY Atorvastatin (Lipitor) 20 Mg Tablet 20 MG PO DAILY Cholecalciferol (Vitamin D3) (Vitamin D) 1,000 Unit Tablet 2,000 UNIT PO DAILY Cyanocobalamin (Vitamin B-12) (Vitamin B-12) 1,000 Mcg Tablet 1,000 MCG PO DAILY Methadone (Methadone) 5 Mg Tablet 5 MG PO BID Prednisone (Deltasone) 20 Mg Tablet 20 MG PO DAILY Scheduled PRN Albuterol Neb Soln (Albuterol Neb Soln) 1.25 Mg/3 Ml Vial.neb 1.25 MG INHALATION Q4H PRN PRN For Shortness of Breath Albuterol Sulfate (Proventil HFA Inhaler) 6.7 Gm Hfa.aer.ad 2 PUFF INH Q4 PRN PRN For Shortness of Breath Ipratropium/Albuterol Sulfate (Iprat-Albut 0.5-3(2.5) mg/3 mL Inhalant Soln) 3 Ml Ampul.neb 3 ML IH Q6 PRN PRN For Shortness of Breath Lorazepam (Lorazepam) 0.5 Mg Tablet 0.5 MG PO Q8H PRN PRN For Anxiety oxyCODONE-Acetaminophen 10-325 mg (oxyCODONE-Acetaminophen 10-325 mg) 1 Each Tablet 1 TABLET PO Q4H PRN PRN For Pain General Time Seen by MD: 20:41 Chief Complaint Other (Shortness of Breath ) Hx Obtained From: Patient Arrived By: Walk-in Sudden in Onset?: No Onset Occurred: 3 days ago Symptom Duration: Since onset Pertinent Negative: Pt denies other symptoms Recent Healthcare: No recent doctor visit, No recent hospitalization Past Medical History Past Medical History Notes: Primary care at [place] Past Medical History 1. Hypertension 2. Asthma 3. COPD 4. CHF 5. Chronic Back Pain w/DJD 6. Anxiety Past Surgical History Reports: Tonsillectomy Smoking History Current Every Day Smoker Social History Alcohol Use: Denies alcohol use Drug Use: Denies drug use Other Social History: Good social support, , Local resident Ambulatory Status Independent Review of Systems Full Review of Systems Constitutional: Reports: Fatigue, Weakness - generalized, Denies: Chills, Fever Respiratory: Reports: Prod cough, white, Shortness of breath Complete sys rev & neg: except as marked. Physical Exam Vital Signs Vital Signs Date Time Temp Pulse Resp B/P Pulse Ox O2 Delivery O2 Flow Rate FiO2 08/09/16 23:50 89 27 105/51 96 Nasal Cannula 0.5 08/09/16 22:01 81 18 153/86 94 Room Air 08/09/16 20:35 36.9 87 13 116/93 97 Room Air Initial VS: Reviewed Neck: Supple, Non-tender, Full range of motion Extremities: Vascular intact, Neuro intact, No swelling, No tenderness Skin: Warm, Dry, No cyanosis Neurologic: Alert, Oriented, Nonfocal Psychiatric: Mood/affect normal, Behavior normal, Normal thought content General/Constitutional: Awake, Alert, No acute distress GENERAL: Fatigued; eyes closed Head / Eyes: Atraumatic, Normocephalic, PERRL Respiratory / Chest: Atraumatic, Breath sounds NL, No respiratory distress Cardiovascular: Heart rate NL, Regular rhythm, Heart sounds NL Abdomen: Atraumatic, Soft Tenderness/Guarding/Rebound: Positive: Tender RLQ... ABDOMEN: Suprapubic bile drain in place Interpretation & Diagnostics Lab Results Interpretation Result Diagram: 08/09/16204108/09/162041 Test 08/09/16 20:42 08/09/16 22:59 White Blood Count 17.5th/mm3 (3.8-10.1) Red Blood Count 5.05mil/mm3 (4.40-5.80) Hemoglobin 14.2g/dL (13.8-17.2) Hematocrit 46.0% (41.0-50.0) Mean Corpuscular Volume 91.1fL (81-100) Mean Corpuscular Hemoglobin 28.1pg (27.0-35.0) Mean Corpuscular Hemoglobin Concent 30.9% (32.0-37.0) Red Cell Distribution Width 15.5% (12.3-15.4) Platelet Count 370bil/L (150-400) Neutrophils (%) (Auto) 77.5% (40-74) Lymphocytes (%) (Auto) 10.8% (14-46) Monocytes (%) (Auto) 8.7% (4-12) Eosinophils (%) (Auto) 2.5% (0-5) Basophils (%) (Auto) 0.3% (0-3) Sodium Level 142mEq/L (134-144) Potassium Level 3.3mEq/L (3.5-5.2) Chloride Level 100mEq/L (97-108) Carbon Dioxide Level 27mmol/L (18-29) Blood Urea Nitrogen 11mg/dL (8-27) Creatinine 0.85mg/dL (0.76-1.27) Estimat Glomerular Filtration Rate 94mL/min (>59) Glucose Level 109mg/dL (60-99) Calcium Level 9.6mg/dL (8.5-10.1) Total Bilirubin 0.5mg/dL (0.0-1.2) Aspartate Amino Transf (AST/SGOT) 11U/L (0-50) Alanine Aminotransferase (ALT/SGPT) 7U/L (0-44) Alkaline Phosphatase 90U/L (25-160) Troponin T 0.010ug/L (0.0-0.011) Pro-B-Type Natriuretic Peptide 4357pg/mL (0-376) Total Protein 7.2g/dL (6.4-8.4) Albumin 3.7g/dL (3.4-5.0) Hold Silva Top Tube Received (Received) Urine Color Dark yellow (YELLOW) Urine Appearance Hazy (CLEAR,HAZY) Urine pH 5.5 (5.0-8.0) Urine Specific [place] 1.020 (1.003-1.035) Urine Protein Tracemg/dL (NEG,TRACE) Urine Glucose (UA) Negativemg/dL (NEGATIVE) Urine Ketones Negativemg/dL (NEGATIVE) Urine Occult Blood Negative (NEGATIVE) Urine Nitrite Negative (NEGATIVE) Urine Bilirubin Negative (NEGATIVE) Urine Urobilinogen 1.0mg/dL (NORMAL) Urine Leukocyte Esterase Negative (NEGATIVE) Urine RBC 0-2/hpf (0-2) Urine WBC 0-5/hpf (0-5) Urine Epithelial Cells Few/hpf (NONE-MOD) Urine Crystals None seen (NONE SEEN) Urine Bacteria Few/hpf (NONE-FEW) Urine Hyaline Casts >20/lpf (NONE) Urine Granular Casts None seen (NONE SEEN) Urine Waxy Casts None seen (NONE SEEN) Urine Red Blood Cell Casts None seen (NONE SEEN) Urine White Blood Cell Casts None seen (NONE SEEN) Urine Mucus Present (None Seen) Urine Trichomonas None seen (NONE SEEN) Urine Yeast None (NONE SEEN) Urinalysis Comment None Urine Culture Reflexed Not indicated ECG Interpretation ECG Interpretation: Sinus rhythm Rate 70 Multiple PVC's Probable left atrial enlargement LVH with IVCD Time: 21:45 Interpreted by: ED physician X-Ray Chest Interpretation Chest Xray Interpretation: IMPRESSION: Chronic diffuse interstitial disease. No acute consolidation Dictated by: Dileep Lamb M.D. on 08/09/2016 at 21:22 Interpretation / Wet Read by: Interpret - Radiologist Re-Eval/Medical Decision Med Decision/Clinical Course I think discharge is reasonable. The stones vital signs are normal laboratory data is relatively reassuring. His metabolic blood cell count is slightly elevated but it has been elevated for apparently spurious causes recently and consistently. He has no overt signs of infection specifically, his chest x-ray and urine are normal. He cannot identify any specific source of infection on questioning nor can I identify one on examination. He is able to ambulate without difficulty with standby assist around the emergency department and was at the [employer] earlier this evening his said that he asked to come to the emergency department. But I am unable to identify a specific cause for hospitalization or even observation at this time. It is not clear why he retains his viral drain tube. I encouraged his and he needs to seek consultation with the surgeon who placed her to have it removed. Time of Eval: 00:48 Patient Status: Condition improved Re-Evaluation/Progress Note: Pt is informed of his lab results, EKG results, and chest X-ray results. Road test is assinged. Time of Eval: 01:09 Patient Status: Condition improved Re-Evaluation/Progress Note: Pt passes the road test. All questions are addressed. He understands and agrees with the intended treatment plan. Counseled Regarding: Diagnosis, Lab results, Need for follow-up, When/why to return to ED Discharge & Departure Primary Impression: Generalized weakness Disposition: Home Discharge Condition All VS Reviewed: Yes Condition: Improved Patient Instructions: Weakness (ED) Additional Instructions: Thank you for trusting us with your care this evening. Your emergency department evaluation today included examination, lab work, EKG and chest X-ray. Your results reassuring that there is no dangerous cause for concern at this time, however, a clear cause of your symptoms was not identified. I recommend that you schedule a follow-up appointment with your primary care physician tomorrow for a recheck. Please continue to take other medications as directed. Please return to the emergency department for any new or worsening symptoms. Referrals: Fritz Jo MD (PCP) [facility] Attestation Portions of this note were transcribed by Rohini Reddy. I, Dr. Sales personally performed the history, physical exam and medical decision-making; I reviewed and confirmed the accuracy of the information in the transcribed note. Signed by: Ashleigh Alves, 08/10/16 0115. copies to: Fritz Jo MD, Kirk H MD Aug 09, 2016 20:48 ROHINI REDDY Aug 09, 2016 21:49
[2016-08-09 20:51] LABS: BASOPHILS % (AUTO) 0.3 % (0-3); EOSINOPHILS % (AUTO) 2.5 % (0-5); MONOCYTES % (AUTO) 8.7 % (4-12); Mean Corpuscular Hemoglobin 28.1 pg (27.0-35.0); Mean Corpuscular Volume 91.1 fL (81-100); NEUTROPHILS % (AUTO) 77.5 % (40-74); Platelet Count 370 bil/L (150-400)
[2016-08-09 21:25] LABS: TROPONIN T 0.01 ug/L (0.0-0.011)
--- NOTE | 2016-08-09 21:26 | DRSVH ---
PROCEDURE: X-RAY CHEST ONE VIEW, PORTABLE ([id number]) INDICATIONS: SOB TECHNIQUE: One view of the chest was acquired. COMPARISON: None. FINDINGS: Surgical changes and devices: None. Lungs and pleura: No pleural effusions or pneumothorax. Lungs are clear. Chronic diffuse interstiti al changes Mediastinum: Mediastinal contours appear normal. Heart size is normal. Bones and chest wall: No suspicious bony lesions. Overlying soft tissues appear unremarkable. IMPRESSION: Chronic diffuse interstitial disease. No acute consolidation Dictated by: Dileep Lamb M.D. on 08/09/2016 at 21:22 Approved by: Dileep Lamb M.D. on 08/09/2016 at 21:24
[2016-08-09 22:01] VITALS: BP 153/86; PULSE 81; RESP 18; O2SAT 94
[2016-08-09 23:08] LABS: APPEARANCE,URINE HAZY (CLEAR,HAZY); COLOR,URINE DARK YELLOW (YELLOW); OCCULT BLOOD,URINE NEGATIVE (NEGATIVE); PH,URINE 5.5 (5.0-8.0)
[2016-08-09 23:50] VITALS: BP 105/51; PULSE 89; RESP 27; O2SAT 96
[2016-08-10 01:53] VITALS: BP 116/52; PULSE 76; RESP 21; O2SAT 95
== END 2016-08-10 01:53 | disposition home or self-care (01) ==
LOC: SED 20:30
DX: R53.1 Weakness (principal); R06.02 Shortness of breath; R53.83 Other fatigue; I11.0 Hypertensive heart disease with heart failure; I50.9 Heart failure, unspecified; J45.909 Unspecified asthma, uncomplicated; J44.9 Chronic obstructive pulmonary disease, unspecified; F41.9 Anxiety disorder, unspecified; F17.200 Nicotine dependence, unspecified, uncomplicated; Z79.82 Long term (current) use of aspirin